=== PATIENT | male | born 1950 | race Caucasian/White ===

== ENCOUNTER → 2017-04-02 | Outpatient (CLI) | payer MEDICARE ==
--- NOTE | 2017-04-02 20:00 | CT ---
EXAMINATION TYPE: CT abdomen pelvis wo con DATE OF EXAM: 04/02/2017 COMPARISON: Previous study dated 02/12/2015 HISTORY: Follow-up for renal cancer. CT DLP: 1116.70 mGycm Automated exposure control for dose reduction was used. FINDINGS: There is minimal dependent atelectasis in the dependent portions of the lungs. There is no pleural or pericardial fluid. The heart is not enlarged. Within the abdomen, the liver is enlarged measuring 23 cm. The spleen and gallbladder appear normal. The right adrenal gland is normal. The left is absent. There is been a previous left nephrectomy. Nephrectomy bed is clean. There is no evidence of hydronephrosis or nephrolithiasis involving the right kidney. The pancreas is unremarkable. There is no significant retroperitoneal, iliac or inguinal adenopathy. The bladder is not distended. The prostate is mildly enlarged. There is no significant diverticular change and there is no radiographic evidence of diverticulitis. The appendix is normal. Small bowel caliber is normal. There is no free fluid and no free air. There is some atrophy of the left rectus muscle superiorly. It is more normal-appearing more inferior ly. There is diffuse degenerative disc disease as well as hypertrophic spondylosis within the lower dorsa l and upper lumbar spines. No bony destructive lesion is seen. IMPRESSION: 1. STATUS POST LEFT-SIDED NEPHRECTOMY AND ADRENALECTOMY. 2. HEPATOMEGALY. 3. DEGENERATIVE CHANGE WITHIN THE SPINE.
== END | disposition home or self-care (01) ==
LOC: RADCTMAIN 16:40
PROVIDERS: ATTEND Urology
DX: R16.0 Hepatomegaly, not elsewhere classified (principal); C64.2 Malignant neoplasm of left kidney, except renal pelvis; Z90.5 Acquired absence of kidney; E89.6 Postprocedural adrenocortical (-medullary) hypofunction
CPT/HCPCS: 36415; 74176; 82565; 84520

== ENCOUNTER 2017-12-01 06:31 | Day surgery (SDC) | payer MEDICARE ==
[2017-11-30 08:27] VITALS: BMI 33.6
[~2017-12-01 06:31] MED LIST: LIDOCAINE 1% 20 ML VIAL (10MG/ML) FOR IV START INTRADERMA PRN; MIDAZOLAM 2 MG/2 ML VIAL IV PRN
[2017-12-01 07:24] LABS: Glucose,Whole Blood 172 mg/dL (75-99)
[2017-12-01] MEDS: LACTATED RINGERS 1,000 ML IV SCH ×2 (07:24→07:56)
[2017-12-01 07:26] VITALS: TEMP 98.2
[2017-12-01] MEDS ORDERED: PROPOFOL 10 MG/ML 20 ML VIAL IV ONE (07:58)
[2017-12-01] MEDS ORDERED: LIDOCAINE 1% INJ 10MG/ML (20 ML MDV) ONE (07:58)
--- NOTE | 2017-12-01 08:37 | P.PCN ---
Date of Procedure: 12/01/17 Procedure(s) Performed: Procedure: Colonoscopy and polypectomy. Preoperative diagnosis screening for neoplasia, patient has history of polyps. Postoperative diagnosis: 1. Two polyps snared and retrieved by suction but no large polyps or cancer. 2. Diverticulosis with no evidence of acute diverticulitis or strictures. Preparation: HalfLytely prep. Sedation: Was provided by anesthesia. Brief clinical history: The patient is a 67-year-old male who is scheduled for this evaluation for screening for neoplasia because of history of adenomatous polyps. His last exam was in February 2014. He was recommended repeat exam in 3 years. At this time, he has no new abdominal symptoms, bleeding or anemia. He did develop some issues with bowel movements and diarrhea over the last year and he has responded to anti-spasmodics. Procedure: With the patient on his left lateral decubitus position and after informed consent and adequate sedation, the perianal area was inspected and it did not show any fissures or fistulas. There were no masses felt on digital rectal examination. The Olympus CFQ 160L video colonoscope was then inserted in the rectum in the usual fashion and advanced to the cecum. There was a polyp in the distal sigmoid and one in the descending colon each measuring between 1-1/2 cm which were snared and retrieved by suction but there were no large polyps or cancer. There was occasional small diverticular orifices seen in the sigmoid and few on the right side and around the hepatic flexure but there was no evidence of acute diverticulitis or strictures. I retroflexed the endoscope in the rectum before the endoscope was withdrawn. Low-grade internal hemorrhoids were noted with no evidence of bleeding. The patient tolerated the procedure well. Plan: The patient was reassured. Discussed dietary measures. He will follow up with you as planned and I recommended repeat exam in 5 years.
[2017-12-01 08:47] VITALS: BP 116/72; PULSE 73; RESP 18
== END 2017-12-01 09:23 | disposition home or self-care (01) ==
LOC: ORWHC2ENDO 06:31
DX: D12.4 Benign neoplasm of descending colon (principal); D12.5 Benign neoplasm of sigmoid colon; K57.30 Diverticulosis of large intestine without perforation or abscess without bleeding; K64.8 Other hemorrhoids; K58.9 Irritable bowel syndrome, unspecified; Z86.010 Personal history of colon polyps; I10 Essential (primary) hypertension; Z90.5 Acquired absence of kidney; Z85.528 Personal history of other malignant neoplasm of kidney; E78.5 Hyperlipidemia, unspecified; E13.42 Other specified diabetes mellitus with diabetic polyneuropathy; E88.1 Lipodystrophy, not elsewhere classified; Z79.84 Long term (current) use of oral hypoglycemic drugs; Z79.899 Other long term (current) drug therapy
CPT/HCPCS: 88305; 45385; J2001; J2704

== ENCOUNTER → 2018-04-06 | Outpatient (CLI) | payer MEDICARE ==
--- NOTE | 2018-04-06 12:43 | XR ---
EXAMINATION TYPE: XR chest 2V DATE OF EXAM: 04/06/2018 COMPARISON: CT abdomen pelvis dated 06/01/2011 HISTORY: Right posterior lower chest pain TECHNIQUE: Frontal and lateral views of the chest are obtained. FINDINGS: There is right hemidiaphragm elevation that is similar to the CT dated 06/01/2011 and sligh t tenting of the hemidiaphragms likely related to atelectasis. There is right hemithorax volume loss. Mild multilevel degenerative changes of the thoracic spine are seen. Cardiomediastinal silhouette is within normal limits. No focal consolidation, pleural effusion or pneumothorax. IMPRESSION: Chronic right hemidiaphragm elevation. Minimal bibasilar subsegmental atelectasis.
--- NOTE | 2018-04-06 12:46 | XR ---
EXAMINATION TYPE: XR lumbosacral spine min 4V DATE OF EXAM: 04/06/2018 CLINICAL HISTORY: Back pain TECHNIQUE: Frontal, lateral, and oblique images of the lumbar spine are obtained. COMPARISON: None FINDINGS: There are surgical clips along the left upper quadrant and mid abdomen possibly from prior left nephrectomy given the location. There are 5 lumbar type vertebral bodies identified. The lumbar spine shows satisfactory alignment w ithout evidence of acute fracture or dislocation. Vertebral body heights and disk space heights are w ithin normal limits. Facet arthropathy is seen at L3-L4, L4-5 and L5-S1 with at least mild neural for aminal narrowing at L3-L4 and L4-L5 on the right and at L4-5 on the left. The overlying soft tissue appears unremarkable. IMPRESSION: 1. No acute fracture or dislocation is seen in the lumbar spine. 2. Mild multilevel degenerative disc disease of the lumbar spine with radiographic bilateral neural f oraminal narrowing as described above.
[2018-04-06 21:41] LABS: Albumin 4.7 g/dL (3.80-4.90); Albumin/Globulin Ratio 2.94 (1.20-2.10); Anion Gap 10.4 mmol/L (4.00-12.00); Carbon Dioxide 23.6 mmol/L (21.6-31.8); Globulin 1.6 g/dL (2.1-3.7); Potassium 3.9 mmol/L (3.5-5.5); Total Bilirubin 0.6 mg/dL (0.3-1.2); Total Protein 6.3 g/dL (6.2-8.2)
== END ==
LOC: LABWHC1 11:43
PROVIDERS: ATTEND Urology
DX: M99.73 Connective tissue and disc stenosis of intervertebral foramina of lumbar region (principal); M51.36 Other intervertebral disc degeneration, lumbar region; J98.11 Atelectasis; C64.9 Malignant neoplasm of unspecified kidney, except renal pelvis
CPT/HCPCS: 36415; 71046; 72110; 80053

== ENCOUNTER → 2018-11-15 | Outpatient (CLI) | payer MEDICARE ==
[~2018-11-15] MED LIST changes: -LIDOCAINE 1% 20 ML VIAL (10MG/ML) FOR IV START INTRADERMA PRN; -MIDAZOLAM 2 MG/2 ML VIAL IV PRN; +REGADENOSON 0.4 MG/5 ML SYRINGE IV ONE
--- NOTE | 2018-11-15 13:09 | EST ---
EXERCISE STRESS AGE: 68 SEX: M HT: 69" WT: 228 PROTOCOL: Lexiscan Cardiolite Study HEART RATE REST: 74 BLOOD PRESSURE REST: 119/66 MAXIMUM HEART RATE ACHIEVED: 95 MAXIMUM BLOOD PRESSURE: 129/70 INDICATIONS: Atypical chest pain. CLINICAL INFORMATION: A Lexiscan nuclear study was performed, peak heart rate of 95 was achieved. Maximum blood pressure of 129/70 mmHg was noted. Resting EKG shows normal sinus rhythm with normal VA interval and QRS duration and normal ST-T waves. No ST-segment depression suggestive of ischemia is noted. Occasional PVCs are noted. FINAL IMPRESSION: There is no evidence of any ST-segment changes during Lexiscan injection. The results of the nuclear study will follow. MMODL / IJN: [id number] /
--- NOTE | 2018-11-15 15:59 | NM ---
EXAMINATION TYPE: NM stress lexiscan cardiolite DATE OF EXAM: 11/15/2018 COMPARISON: NONE HISTORY: Atypical chest pain TECHNIQUE: After the intravenous administration of 10.3 mCi Tc 99m Sestamibi - Cardiolite resting SP ECT images acquired 45 minutes post injection. The patient received 0.4mg Lexiscan, 26.3 mCi Tc 99m Sestamibi - Stress images obtained [address] injection FINDINGS: Review of stress and rest SPECT images demonstrates moderate defects of the septal and inferolateral sadler in the mid and basilar segments indicating reversible ischemia. Gated analysis shows suspected abnormal wall motion with very mild dyskinesis of the septal and inferior sadler. There is an estimate d left ventricular ejection fraction of 50 %. TID is calculated within normal limits at 1.03 IMPRESSION: 1. Findings indicating reversible ischemia in the distribution of the circumflex coronary artery and left anterior descending coronary artery. Finding was [facility] the [email or web address]:30 PM on 11/15/[address] Garcias however [employer] error precluded a complete dictation at that time.
== END | disposition home or self-care (01) ==
LOC: RADNMMAIN 07:42
PROVIDERS: ATTEND Family Medicine
DX: R07.89 Other chest pain (principal)
CPT/HCPCS: 93017; 78452; A9500; J2785

== ENCOUNTER → 2018-11-16 | Outpatient (CLI) | payer MEDICARE ==
[2018-11-16 12:10] LABS: Basophils % (A) 1 %; Eosinophils # (A) 0.3 k/uL (0-0.7); Eosinophils % (A) 4 %; HCT 42.1 % (39.0-53.0); HGB 14.1 gm/dL (13.0-17.5); Lymphocytes # (A) 2.1 k/uL (1.0-4.8); Lymphocytes % (A) 29 %; MCH 30.9 pg (25.0-35.0); MCHC 33.5 g/dL (31.0-37.0); MCV 92.3 fL (80.0-100.0); Mean Platelet Volume 7.6; Monocytes # (A) 0.3 k/uL (0-1.0); Monocytes % (A) 5 %; Neutrophils # (A) 4.4 k/uL (1.3-7.7); Neutrophils % (A) 60 %; Platelet Count 147 k/uL (150-450); RBC 4.57 m/uL (4.30-5.90); RDW 12.8 % (11.5-15.5); WBC 7.3 k/uL (3.8-10.6)
[2018-11-16 12:23] LABS: Magnesium 1.8 mg/dL (1.6-2.3); Potassium 4.5 mmol/L (3.5-5.1)
== END | disposition home or self-care (01) ==
LOC: LABPAT 11:31
PROVIDERS: ATTEND Internal Medicine Cardiovascular Disease
DX: Z01.812 Encounter for preprocedural laboratory examination (principal)
CPT/HCPCS: 80051; 82565; 82947; 83735; 84520; 85025

== ENCOUNTER 2018-11-26 06:34 | Day surgery (SDC) | payer MEDICARE ==
[~2018-11-26 06:34] MED LIST changes: +ALPRAZolam 0.25 MG TAB PO PRN; +ALPRAZolam 0.5 MG TAB PO PRN; +NITROGLYCERIN SL TABS 0.4 MG TAB SUBLINGUAL PRN; -REGADENOSON 0.4 MG/5 ML SYRINGE IV ONE; +SODIUM CHLORIDE 0.9% 1,000 ML in EMPTY BAG 1 BAG IV ONE
[2018-11-26] MEDS ORDERED: ASPIRIN 325 MG TAB PO ONE (07:00)
[2018-11-26] MEDS ORDERED: ATORVASTATIN 80 MG TAB PO ONE (07:00)
[2018-11-26 07:30] LABS: Glucose,Whole Blood 166 mg/dL (75-99)
[2018-11-26] MEDS ORDERED: SODIUM CHLORIDE 0.9% 1,000 ML IV ONE (07:34)
[2018-11-26] MEDS ORDERED: fentaNYL (PF) 50 MCG/ML 2 ML AMP IVP ONE (08:46)
[2018-11-26] MEDS: MIDAZOLAM (PF) 2 MG/2 ML VIAL IVP ONE ×2 (08:46→09:30)
[2018-11-26] MEDS ORDERED: LIDOCAINE 1% INJ 10MG/ML (20 ML MDV) SQ ONE (08:50)
[2018-11-26] MEDS: VERAPAMIL SYRINGE (5 MG/10 ML) INTRAARTER ONE ×2 (08:52→10:06)
[2018-11-26] MEDS ORDERED: HEPARIN SODIUM 1,000 UN/ML (10ML VL) IV ONE (08:54)
--- NOTE | 2018-11-26 09:27 | P.CARDCATH ---
Date of Procedure: 11/26/18 Preoperative Diagnosis: Exertional angina and positive stress test Postoperative Diagnosis: Critical lesion involving the mid LAD and the moderate to severe disease involving the diagonal Procedure(s) Performed: Left heart catheterization without left ventriculography Description of Procedure: HISTORY: This is 68-year-old gentleman with history of hypertension, hypercholesterolemia and also diabetes mellitus who was recently seen in the office for symptoms of of chest pain and positive stress test. Patient is advised to have a cardiac catheterization for definitive diagnosis. CONSENT:I have discussed the risks, benefits and alternative therapies for the above-mentioned procedure and for both sedation/analgesia as well as necessary blood product administration, if indicated, as they pertain to this patient. The patient has indicated understanding and acceptance of the risks and procedures discussed. 1 PROCEDURE: Patient was brought to the lab in a fasting state. Patient was given some IV sedation. The right groin is infiltrated with lidocaine and right femoral artery was entered using Seldinger technique. A 6-Jordanian catheter was left in place and selective coronary arteriography and left ventriculography was performed. Patient tolerated the procedure well. Femoral angiogram was performed and Angio-Seal was applied for hemostasis. No immediate complications were noted and patient was transferred to [facility] in a stable condition Conscious Sedation: Versed 1mg Fentanyl 50 g Duration 23minutes HEMODYNAMICS: The aortic pressure is 115/76. The left ventricle end-diastolic pressure is about 10-12. There was no gradient across the aortic valve SELECTIVE CORONARY ARTERIOGRAPHY: LEFT MAIN: Normal length and patent THE LEFT ANTERIOR DESCENDING CORONARY ARTERY:. This is a caliber vessel giving rise good-sized diagonal branch. The LAD has 95% stenosis involving the midportion. There is a diagonal branch prior to the lesion which also has about 70% proximal lesion THE LEFT CIRCUMFLEX AND IS CORONARY ARTERY: Nondominant vessel free of occlusive disease THE RIGHT CORONARY ARTERY: Is a dominant vessel and large in caliber and free of any significant occlusive disease LEFT VENTRICULOGRAPHY:. Not performed FINAL IMPRESSION:, Critical lesion involving mid LAD with a moderate to severe disease involving the diagonal PLAN: Stent placement of the LAD and possibly diagonal. Patient doesn't have only one kidney and probably would do the diagonal in a staged fashion PROGNOSIS: Fair with successful therapy
[2018-11-26] MEDS ORDERED: BIVALIRUDIN BOLUS 250 MG/50 ML IV ONE (09:44)
[2018-11-26] MEDS ORDERED: BIVALIRUDIN 250 MG in SODIUM CHLORIDE 0.9% 50 ML IV ONE (09:45)
[2018-11-26] MEDS ORDERED: CLOPIDOGREL 75 MG TAB PO ONE (09:52)
[2018-11-26] MEDS ORDERED: NITROGLYCERIN 1000MCG/10ML SYRINGE INTRACORON ONE (10:04)
[2018-11-26] MEDS ORDERED: IOPAMIDOL-370 125ML BTL INJ ONE (10:05)
[2018-11-26] MEDS ORDERED: NITROGLYCERIN SL TABS 0.4 MG TAB SUBLINGUAL PRN ×2 (10:14→10:16)
[2018-11-26] MEDS ORDERED: FAMOTIDINE 20 MG TAB PO PRN (10:14)
[2018-11-26] MEDS ORDERED: ZOLPIDEM 5 MG TAB PO PRN (10:16)
[2018-11-26] MEDS ORDERED: RX INFO: IV CONTRAST WAS GIVEN 1 EACH MISC MISCELLANE PRN (10:16)
[2018-11-26] MEDS ORDERED: ATROPINE SULFATE 0.1 MG/ML 10ML SYRINGE IV PRN (10:16)
[2018-11-26] MEDS ORDERED: MAG HYDROX/AL HYDROX/SIMETH 30 ML CUP PO PRN (10:16)
[2018-11-26] MEDS ORDERED: SODIUM CHLORIDE 0.9% 1,000 ML IV SCH (10:30)
--- NOTE | 2018-11-26 11:14 | PTCA ---
PERCUTANEOUSTRANS CORORONARY ANGIOGRAPHY DATE OF SERVICE: 11/26/2018 PERFORMING PHYSICIAN: Uzair Auguste MD. PROCEDURE PERFORMED: Successful stenting of the mid left anterior descending artery using 3.5 x 18 mm Xience ALYCIA which was post-dilated using 4 mm noncompliant balloon with an excellent angiographic results and reduction of stenosis from 99% to 0%. INDICATION: This is a 68-year-old gentleman who sees Dr. Kang in the office as an outpatient who was experiencing symptoms of chest discomfort and underwent myocardial perfusion imaging stress test and that revealed ischemia. He underwent a heart catheterization earlier today and that revealed critical mid LAD lesion. Because of that, a PCI of the LAD was advised. APPROACH: Right radial artery. COMPLICATION: None. LEVEL OF SEDATION: Moderate with sedation length of 25 minutes. PROCEDURE DESCRIPTION: Please refer to diagnostic heart catheterization was performed by Dr. Kang. Anticoagulation was initiated using Angiomax. The left main was engaged using JL4 guide. I did wire the LAD using a Whisper wire. I did balloon angioplasty using 2.5 x 12 mm balloon before I deployed 3.5 x 18 mm Xience ALYCIA where the stent was positioned under fluoroscopy guidance and deployed under 16 atmospheres for 20 seconds. I post- dilated the stent using 4 mm balloon. The final angiogram showed great results and the procedure was completed without any complication. POSTPROCEDURE MANAGEMENT: 1. Dual anti-platelet therapy. 2. Risk factors modifications. 3. Follow up with the patient. MMODL / IJN: [id number] /
--- NOTE | 2018-11-26 11:14 | LTR ---
Date of Service: 11/26/2018 RE: Wyatt Melissa Dear Dr. Dupree: Wyatt Susannacarlos alberto underwent successful stenting of the mid left anterior descending artery after a heart catheterization by Dr. Kang revealed critical disease involving the mid LAD. I want to thank you for allowing us to participate in his care and please do not hesitate to call if you have any question or concern. Sincerely, MD STEPHAN Goyal / CANDY: [id number] /
[2018-11-26 15:52] VITALS: BMI 33.2
[2018-11-26 16:55] LABS: Glucose,Whole Blood 136 mg/dL (75-99)
[2018-11-26] MEDS: INSULIN ASPART (NovoLOG) 100 UNIT/ML VIAL SQ SCH ×2 (17:00→21:49)
[2018-11-26] MEDS: ACETAMINOPHEN TAB 500 MG TAB PO SCH (20:31)
[2018-11-26] MEDS: DICYCLOMINE 20 MG TAB PO SCH (20:31)
[2018-11-26] MEDS: GABAPENTIN 100 MG CAP PO SCH (20:31)
[2018-11-26 20:55] LABS: Glucose,Whole Blood 140 mg/dL (75-99)
[2018-11-27 06:13] LABS: Glucose,Whole Blood 141 mg/dL (75-99)
[2018-11-27] MEDS: INSULIN ASPART (NovoLOG) 100 UNIT/ML VIAL SQ SCH ×2 (06:30→12:42)
[2018-11-27 06:39] LABS: Basophils % (A) 1 %; Eosinophils # (A) 0.3 k/uL (0-0.7); Eosinophils % (A) 4 %; HCT 39.9 % (39.0-53.0); HGB 13.4 gm/dL (13.0-17.5); Lymphocytes # (A) 2.1 k/uL (1.0-4.8); Lymphocytes % (A) 30 %; MCH 31.2 pg (25.0-35.0); MCHC 33.6 g/dL (31.0-37.0); MCV 92.7 fL (80.0-100.0); Mean Platelet Volume 6.8; Monocytes # (A) 0.3 k/uL (0-1.0); Monocytes % (A) 5 %; Neutrophils # (A) 4.2 k/uL (1.3-7.7); Neutrophils % (A) 59 %; Platelet Count 114 k/uL (150-450); RDW 12.7 % (11.5-15.5)
[2018-11-27 06:56] LABS: Calcium 9.3 mg/dL (8.4-10.2); Potassium 3.8 mmol/L (3.5-5.1)
[2018-11-27 08:08] VITALS: RESP 16
[2018-11-27] MEDS: ACETAMINOPHEN TAB 500 MG TAB PO SCH (08:46)
[2018-11-27] MEDS: PRAVASTATIN SODIUM 40 MG TAB PO SCH ×2 (08:48→08:52)
[2018-11-27] MEDS: DICYCLOMINE 20 MG TAB PO SCH (08:57)
[2018-11-27] MEDS: GABAPENTIN 100 MG CAP PO SCH (08:57)
[2018-11-27] MEDS ORDERED: ASCORBIC ACID 500 MG TAB PO SCH (09:00)
[2018-11-27] MEDS ORDERED: CLOPIDOGREL 75 MG TAB PO SCH (09:00)
[2018-11-27] MEDS ORDERED: CYANOCOBALAMIN 500 MCG TAB PO SCH (09:00)
[2018-11-27] MEDS ORDERED: CHOLECALCIFEROL 1,000 UNIT TAB PO SCH (09:00)
[2018-11-27] MEDS ORDERED: LISINOPRIL-HCTZ 20-12.5 MG 1 EACH TAB PO SCH (09:00)
[2018-11-27] MEDS ORDERED: ASPIRIN 81 MG PO SCH (09:00)
[2018-11-27] MEDS ORDERED: ISOSORBIDE MONONITRATE ER 30 MG TAB.ER.24H PO SCH (09:00)
[2018-11-27] MEDS ORDERED: ATENOLOL 50 MG TAB PO SCH (09:00)
[2018-11-27 10:38] VITALS: BP 135/73; PULSE 73; TEMP 98
--- NOTE | 2018-11-27 11:43 | P.DS ---
Providers Attending physician: Adelso Kang Consults: 11/26/18 10:16 Consult Physician Routine Consulting Provider: [facility] Consult Reason/Comments: Post Interventional patient Do you want consulting provider notified?: Already Contacted Primary care physician: Luis Fernando Phillip [facility] Course: Patient is doing well. He is sitting comfortably in a chair. His ablating in the hallways. His right hand circulation is normal. Right radial pulses post radial access for coronary angiography and coronary stenting is normal. Good bounding pulses No chest discomfort dizziness lightheadedness palpitations no shortness of breath On examination his blood pressures 130s over 73 mmHg pulse rate is in the 70s afebrile 98F Breath sounds are clear no rhonchi no crackles Heart sounds S1 and S2 normal no murmurs or gallops or rub Abdomen is soft nontender Extremities are warm no edema Impression Coronary artery disease status post coronary stenting Dyslipidemia Type 2 diabetes Hypertension Suggest Continue dual antiplatelet therapy Increase Pravachol to 80 mg by mouth daily Continue beta blockers and karly inhibitors May stop isosorbide Follow-up with Dr. Kang within week. You may go home today Plan - Discharge Summary Discharge Rx Participant: No New Discharge Prescriptions: New Clopidogrel [Plavix] 75 mg PO DAILY #90 tablet Pravastatin Sodium [Pravachol] 80 mg PO HS #90 tab Discontinued Pravastatin Sodium [Pravachol] 40 mg PO DAILY Isosorbide Mononitrate [Isosorbide Mononitrate ER] 30 mg PO DAILY No Action Albuterol Inhaler [Ventolin Hfa Inhaler] 1 - 2 puff INHALATION RT-Q6H PRN PRN Reason: Dyspnea metFORMIN HCL [Glucophage] 1,000 mg PO BID Gabapentin [Neurontin] 100 mg PO BID Dicyclomine [Bentyl] 20 mg PO BID Atenolol [Tenormin] 50 mg PO DAILY Aspirin 81 mg PO DAILY Cholecalciferol [Vitamin D3] 5,000 unit PO DAILY Ascorbic Acid [Vitamin C] 500 mg PO DAILY Cyanocobalamin (Vitamin B-12) [Vitamin B-12] 2,500 mcg PO DAILY Acetaminophen [Tylenol Arthritis] 1,300 mg PO BID Diphenox-Atrop 2.5-0.025 mg [Lomotil] 1 - 2 tab PO BID PRN PRN Reason: loose stools Lisinopril-Hctz 20-12.5 mg [Zestoretic 20-12.5] 1 tab PO DAILY Ranitidine HCl 150 mg PO BID PRN PRN Reason: reflux Nitroglycerin Sl Tabs [Nitrostat] 0.4 mg SUBLINGUAL Q5M PRN PRN Reason: Chest Pain Discharge Medication List Acetaminophen [Tylenol Arthritis] 1,300 mg PO BID 11/30/17 [History] Albuterol Inhaler [Ventolin Hfa Inhaler] 1 - 2 puff INHALATION RT-Q6H PRN 11/30/17 [History] Ascorbic Acid [Vitamin C] 500 mg PO DAILY 11/30/17 [History] Aspirin 81 mg PO DAILY 11/30/17 [History] Atenolol [Tenormin] 50 mg PO DAILY 11/30/17 [History] Cholecalciferol [Vitamin D3] 5,000 unit PO DAILY 11/30/17 [History] Cyanocobalamin (Vitamin B-12) [Vitamin B-12] 2,500 mcg PO DAILY 11/30/17 [History] Dicyclomine [Bentyl] 20 mg PO BID 11/30/17 [History] Gabapentin [Neurontin] 100 mg PO BID 11/30/17 [History] metFORMIN HCL [Glucophage] 1,000 mg PO BID 11/30/17 [History] Diphenox-Atrop 2.5-0.025 mg [Lomotil] 1 - 2 tab PO BID PRN 11/24/18 [History] Lisinopril-Hctz 20-12.5 mg [Zestoretic 20-12.5] 1 tab PO DAILY 11/24/18 [History] Nitroglycerin Sl Tabs [Nitrostat] 0.4 mg SUBLINGUAL Q5M PRN 11/24/18 [History] Ranitidine HCl 150 mg PO BID PRN 11/24/18 [History] Clopidogrel [Plavix] 75 mg PO DAILY #90 tablet 11/27/18 [Rx] Pravastatin Sodium [Pravachol] 80 mg PO HS #90 tab 11/27/18 [Rx] Follow up Appointment(s)/Referral(s): Adelso Kang MD [STAFF PHYSICIAN] - 1 Week (Follow Dr. Kang within one week. Medications include Plavix 75 mg by mouth daily, higher dose of pravastatin 80 mg by mouth daily, stop isosorbide oral)
[2018-11-27 12:26] LABS: Glucose,Whole Blood 174 mg/dL (75-99)
[2018-11-27] MEDS ORDERED: PRAVASTATIN SODIUM 40 MG TAB PO SCH (21:00)
== END 2018-11-27 13:28 | disposition home or self-care (01) ==
LOC: CATHCVL 06:34 → 3SCARD 10:07 → CATHCVL 11-27 13:28
PROVIDERS: ATTEND Internal Medicine Cardiovascular Disease
DX: I25.118 Atherosclerotic heart disease of native coronary artery with other forms of angina pectoris (principal); I10 Essential (primary) hypertension; E78.5 Hyperlipidemia, unspecified; E11.9 Type 2 diabetes mellitus without complications; Z79.82 Long term (current) use of aspirin; Z95.5 Presence of coronary angioplasty implant and graft; E78.00 Pure hypercholesterolemia, unspecified; R94.39 Abnormal result of other cardiovascular function study; Z79.84 Long term (current) use of oral hypoglycemic drugs; Z79.899 Other long term (current) drug therapy
CPT/HCPCS: 93458; 80048; 85025; C9600; C1769 ×2; C1887; C1725 ×2; C1874; C1894; J2001; J3010; J1644; J0583; Q9967; J2250

== ENCOUNTER → 2019-01-03 | Outpatient (CLI) | payer MEDICARE ==
[2019-01-03 17:21] LABS: ALT 25 U/L (10-49); AST 15 U/L (14-35); African American GFR (CKD) 72.6 (60.0-200.0); Albumin/Globulin Ratio 2.94 (1.60-3.17); Alkaline Phosphatase 61 U/L (41-126); BUN/Creat Ratio 15.83 Ratio (12.00-20.00); Calcium 9.8 mg/dL (8.7-10.3); Carbon Dioxide 27.4 mmol/L (21.6-31.8); Chloride 106 mmol/L (96-109); Cholesterol 129 mg/dL (0-200); Globulin 1.6 g/dL (1.6-3.3); Glucose 182 mg/dL (70-110); Potassium 4.7 mmol/L (3.5-5.5); Sodium 144 mmol/L (135-145); Total Bilirubin 0.8 mg/dL (0.2-1.2); Total Protein 6.3 g/dL (6.2-8.2)
== END | disposition home or self-care (01) ==
LOC: LABWHC1 09:22
PROVIDERS: ATTEND Internal Medicine Cardiovascular Disease
DX: I25.10 Atherosclerotic heart disease of native coronary artery without angina pectoris (principal); I10 Essential (primary) hypertension; E78.5 Hyperlipidemia, unspecified
CPT/HCPCS: 36415; 80053; 80061; 83721

== ENCOUNTER → 2019-04-12 | Outpatient (CLI) | payer MEDICARE ==
--- NOTE | 2019-04-12 12:26 | CT ---
EXAMINATION TYPE: CT abdomen pelvis wo con DATE OF EXAM: 04/12/2019 COMPARISON: 04/02/2017 HISTORY: 69-year-old male history of Renal cancer CT DLP: 1077.9 mGycm. Automated exposure control for dose reduction was used. TECHNIQUE: Contiguous axial scanning of the abdomen and pelvis without IV contrast. Coronal and sagit bety reconstructions performed. FINDINGS: Heart normal size without pericardial effusion. LAD calcification versus stent is now demonstrated. S trandy atelectasis or scarring in the lung bases without pleural effusion. Hepatomegaly at 21.3 cm stable improved from 23.0 cm, previously. Gallbladder, adrenal glands, spleen with inferior hilar splenule, and pancreas show no gross abnormal ity by noncontrast CT. A couple nonobstructing right renal calculi measuring 6 mm and 3 mm. Stable 1.7 cm exophytic cyst med ial midpole right kidney. Post surgical changes of left nephrectomy are demonstrated. There is a vague area 1 cm soft tissue no dularity in the nephrectomy bed. There is some strandy density in this region on the patient's 2017 p rior exam. No dilated small bowel, free fluid, or free air. No mesenteric or retroperitoneal lymphadenopathy. Oral contrast progressed to the rectum. No significant stool burden. No pericolonic inflammatory delatorre ge. Bladder is collapsed. Multiple pelvic lymph nodes. Prostate gland is 4.5 cm wide. No abnormal collect ion in the pelvis or pelvic lymphadenopathy. Bones: Degenerative changes of the hips. Focal sclerosis posterior left iliac bone is unchanged sugge sting a benign etiology. Degenerative changes left SI joint. Bilateral L5 pars defects. Multilevel mi ld degenerative disc disease throughout the visualized thoracic and lumbar spine. [facility] within the low er thoracic lung. No osseous destructive process. Fatty matrix hemangioma towards the right within th e L2 vertebral body. IMPRESSION: 1. Status post left nephrectomy. There is vague 1 cm area of nodularity within the nephrectomy bed. Some minimal strandy density was present in this location on the patient's prior 2017 exam. Some prog ressive postoperative scarring versus early local recurrence are both in the differential. Additional short interval follow-up recommended. 2. No other suspicious findings of metastatic disease in the abdomen or pelvis on this noncontrast s tudy. 3. Nonobstructive right renal calculi measuring up to 6 mm. Stable 1.7 cm right renal cyst.
== END | disposition home or self-care (01) ==
LOC: RADCTMAIN 10:30
PROVIDERS: ATTEND Urology
DX: N20.0 Calculus of kidney (principal); N28.1 Cyst of kidney, acquired; Z90.5 Acquired absence of kidney; Z77.120 Contact with and (suspected) exposure to mold (toxic); Z91.048 Other nonmedicinal substance allergy status; Z77.22 Contact with and (suspected) exposure to environmental tobacco smoke (acute) (chronic)
CPT/HCPCS: 74176

== ENCOUNTER 2019-04-17 19:22 | Inpatient (IN) | payer MEDICARE ==
[2019-04-17] MEDS ORDERED: ONDANSETRON 4 MG/2 ML VIAL IVP STA ×2 (20:00→21:04)
[2019-04-17] MEDS ORDERED: SODIUM CHLORIDE 0.9% 1,000 ML IV STA (20:00)
[2019-04-17] MEDS ORDERED: MORPHINE SULFATE 4 MG/ML SYRINGE IV STA (20:00)
[2019-04-17 20:20] LABS: Appearance,Urine Turbid (Clear); Bilirubin,Urine Negative (Negative); Blood,Urine Large (Negative); Color,Urine Light Red; Glucose,Urine (UA) 1+ (Negative); Ketones,Urine Negative (Negative); Leukocyte Esterase,Urine Negative (Negative); Mucus,Urine Rare /hpf; Nitrite,Urine Negative (Negative); PH, Urine 5.5 (5.0-8.0); Protein,Urine 1+ (Negative); RBC,Urine >182 /hpf (0-5); Specific Gravity,Urine 1.021 (1.001-1.035); Squamous Epithelial Cell,Urine 1 /hpf (0-4); Urobilinogen,Urine <2.0 mg/dL (<2.0)
[2019-04-17 20:31] LABS: Basophils % (A) 0 %; Eosinophils # (A) 0.4 k/uL (0-0.7); Eosinophils % (A) 4 %; HCT 42.6 % (39.0-53.0); HGB 14.9 gm/dL (13.0-17.5); Lymphocytes # (A) 1.4 k/uL (1.0-4.8); Lymphocytes % (A) 13 %; MCH 31.6 pg (25.0-35.0); MCHC 34.9 g/dL (31.0-37.0); MCV 90.5 fL (80.0-100.0); Mean Platelet Volume 6.2; Monocytes # (A) 0.5 k/uL (0-1.0); Monocytes % (A) 5 %; Neutrophils # (A) 8.4 k/uL (1.3-7.7); Neutrophils % (A) 77 %; Platelet Count 145 k/uL (150-450); RBC 4.71 m/uL (4.30-5.90); RDW 12.8 % (11.5-15.5); WBC 10.8 k/uL (3.8-10.6)
[2019-04-17 20:35] LABS: Albumin 4.7 g/dL (3.5-5.0); Calcium 9.8 mg/dL (8.4-10.2); INR 0.9 (<1.2); Partial Thromboplastin Time 22.6 sec (22.0-30.0); Potassium 4.4 mmol/L (3.5-5.1); Prothrombin Time 10.1 sec (9.0-12.0); Total Bilirubin 0.5 mg/dL (0.2-1.3); Total Protein 7.3 g/dL (6.3-8.2)
--- NOTE | 2019-04-17 20:36 | XR ---
EXAMINATION TYPE: XR KUB DATE OF EXAM: 04/17/2019 COMPARISON: 06/01/2011 HISTORY: Right lower quadrant pain TECHNIQUE: 2 views upright FINDINGS: There is no sign of intestinal obstruction or pneumoperitoneum. Fecal pattern is normal. Th ere are multiple surgical clips in the upper abdomen. There are no pathologic calcifications over the kidneys. IMPRESSION: Nonacute abdomen. No adverse change.
[2019-04-17] MEDS ORDERED: HYDROmorphone 1 MG/ML 1 ML SYRINGE IVP STA ×2 (21:04→22:35)
[2019-04-17] MEDS ORDERED: SODIUM CHLORIDE 0.9% 1,200 ML IV ONE (21:05)
--- NOTE | 2019-04-17 21:32 | CT ---
EXAMINATION TYPE: CT abdomen pelvis wo con DATE OF EXAM: 04/17/2019 COMPARISON: 04/12/2019 HISTORY: Right flank to right abdominal pain. CT DLP: 1255.5 mGycm Automated exposure control for dose reduction was used. TECHNIQUE: Helical acquisition of images was performed from the lung bases through the pelvis. FINDINGS: Lung bases are clear of consolidation. There is no pleural effusion. Heart size is fairly normal. The re is no pericardial effusion. Stomach is intact. Liver spleen pancreas gallbladder appear normal. Bi le ducts are not dilated. There is no adrenal mass. Left kidney is absent. There are clips from left nephrectomy. The right kid bushra shows hydronephrosis and mild hydroureter. There is 2 mm calculus lateral right kidney. There is 3 mm calculus lower pole right kidney. There is a 3 mm calculus in the proximal right ureter. There i s no retroperitoneal adenopathy. Bladder distends smoothly. There is no inguinal hernia. There is no free fluid in the pelvis. The joann endix is posterior and appears normal. There is no mesenteric edema. There is no ascites or free air. There is mild fat stranding around the right kidney. There is no sign of a bowel obstruction. LUMBAR VERTEBRA APPEAR INTACT. BONY PELVIS IS INTACT. IMPRESSION: Obstructing small calculus in the proximal right ureter with right-sided hydronephrosis. Right side p erinephric and periureteral edema. Obstruction appears new compared to last exam. Small right renal calculi.
--- NOTE | 2019-04-17 22:38 | ED ---
Abdominal Pain HPI - General Chief Complaint: Abdominal Pain Stated Complaint: Side pain Time Seen by Provider: 04/17/19 19:35 Source: patient Mode of arrival: ambulatory Limitations: no limitations - History of Present Illness Initial Comments: The patient is a 69-year-old male with past medical history of renal cancer, hypertension and hyperlipidemia who presents emergency room with complaint of right flank pain. The patient does have a history of kidney cancer and had a left nephrectomy. He sees Dr. Garcia in office. He saw him last week and did have a repeat CT of his abdomen performed for surveillance. He is unsure of the test results. States that approximately 3 hours prior to hospital arrival he had sudden onset of right-sided flank pain which radiates around to his right groin. It started while he was sitting on the toilet having a bowel movement. States that it brought him to his knees. He did have multiple episodes of vomiting due to the pain. He does have a history of kidney stones however states this feels different. Denies any hematuria or dysuria. No increased frequency of voiding. Denies any abdominal trauma. No pain with palpation. Denies constipation, diarrhea, melanotic stools or hematochezia. No fevers or chills. Denies any chest pain or shortness of breath. Denies urinary retention. Denies any midline back pain. No numbness or tingling in his lower extremities. Denies any unilateral numbness or weakness There are no other alleviating, precipitating or modifying factors - Related Data Home Medications Medication Instructions Recorded Confirmed Acetaminophen [Tylenol Arthritis] 1,300 mg PO BID 11/30/17 04/18/19 Albuterol Inhaler [Ventolin Hfa 1 - 2 puff INHALATION RT-Q6H PRN 11/30/17 04/18/19 Inhaler] Ascorbic Acid [Vitamin C] 500 mg PO DAILY 11/30/17 04/18/19 Aspirin 81 mg PO HS 11/30/17 04/18/19 Atenolol [Tenormin] 50 mg PO DAILY 11/30/17 04/18/19 Cholecalciferol [Vitamin D3] 5,000 unit PO DAILY 11/30/17 04/18/19 Cyanocobalamin (Vitamin B-12) 2,500 mcg PO DAILY 11/30/17 04/18/19 [Vitamin B-12] Dicyclomine [Bentyl] 20 mg PO BID 11/30/17 04/18/19 Gabapentin [Neurontin] 100 mg PO TID 11/30/17 04/18/19 Diphenox-Atrop 2.5-0.025 mg 1 - 2 tab PO BID PRN 11/24/18 04/18/19 [Lomotil] Lisinopril-Hctz 20-12.5 mg 1 tab PO DAILY 11/24/18 04/18/19 [Zestoretic 20-12.5] Nitroglycerin Sl Tabs [Nitrostat] 0.4 mg SUBLINGUAL Q5M PRN 11/24/18 04/18/19 Ranitidine HCl 150 mg PO BID 11/24/18 04/18/19 Hydrocortisone Cream 1 applic TOPICAL BID PRN 04/18/19 04/18/19 [Hydrocortisone 2.5% Cream] Psyllium Husk [Metamucil] 0.4 gm PO DAILY 04/18/19 04/18/19 metFORMIN HCL [metFORMIN HCL ER] 1,000 mg PO BID-W/MEALS 04/18/19 04/18/19 traMADol HCL [Ultram] 25 - 50 mg PO Q6HR PRN 04/18/19 04/18/19 Previous Rx's Medication Instructions Recorded Clopidogrel [Plavix] 75 mg PO DAILY #90 tablet 11/27/18 Pravastatin Sodium [Pravachol] 80 mg PO HS #90 tab 11/27/18 Allergies Allergy/AdvReac Type Severity Reaction Status Date / Time No Known Allergies Allergy Verified 04/18/19 11:25 Review of Systems ROS Statement: Those systems with pertinent positive or pertinent negative responses have been documented in the HPI. ROS Other: All systems not noted in ROS Statement are negative. Past Medical History Past Medical History: Asthma, Coronary Artery Disease (CAD), Cancer, Diabetes Mellitus, GERD/Reflux, Hyperlipidemia, Hypertension, Skin Disorder Additional Past Medical History / Comment(s): See Dr Kang's H&P,IBS, hx. kidney cancer 2014, hx. colon polyps, lipodystrophy,roscea History of Any Multi-Drug Resistant Organisms: None Reported Past Surgical History: Heart Catheterization With Stent Additional Past Surgical History / Comment(s): left nephrectomy, colonoscopy Past Anesthesia/Blood Transfusion Reactions: No Reported Reaction Additional Past Anesthesia/Blood Transfusion Reaction / Comment(s): no hx blood transfusion Past Psychological History: No Psychological Hx Reported Smoking Status: Never smoker Past Alcohol Use History: Rare Past Drug Use History: None Reported - Past Family History Father Family Medical History: Cancer Additional Family Medical History / Comment(s): colon cancer Mother Family Medical History: Cancer Additional Family Medical History / Comment(s): cervical General Exam Limitations: no limitations General appearance: alert, in no apparent distress Head exam: Present: atraumatic, normocephalic, normal inspection Eye exam: Present: normal appearance, PERRL, EOMI. Absent: scleral icterus, conjunctival injection, periorbital swelling ENT exam: Present: normal exam, mucous membranes moist Neck exam: Present: normal inspection. Absent: tenderness, meningismus, lymphadenopathy Respiratory exam: Present: normal lung sounds bilaterally. Absent: respiratory distress, wheezes, rales, rhonchi, stridor Cardiovascular Exam: Present: regular rate, normal rhythm, normal heart sounds. Absent: systolic murmur, diastolic murmur, rubs, gallop, clicks GI/Abdominal exam: Present: soft, normal bowel sounds. Absent: distended, tenderness, guarding, rebound, rigid Extremities exam: Present: normal inspection, full ROM, normal capillary refill. Absent: tenderness, pedal edema, joint swelling, calf tenderness Back exam: Present: normal inspection Neurological exam: Present: alert, oriented X3, CN II-XII intact Psychiatric exam: Present: normal affect, normal mood Skin exam: Present: warm, dry, intact, normal color. Absent: rash Course Vital Signs 04/17/19 04/17/19 04/17/19 19:33 19:34 20:00 Temperature 98 F Pulse Rate 76 Respiratory 18 Rate Blood Pressure 147/88 147/88 O2 Sat by Pulse 94 L 95 94 L Oximetry 04/17/19 04/17/19 04/17/19 20:30 21:00 23:28 Temperature Pulse Rate 87 Respiratory 16 Rate Blood Pressure 143/84 135/78 147/91 O2 Sat by Pulse 93 L 91 L 100 Oximetry Medical Decision Making - Medical Decision Making Upon arrival the patient was placed into room 8. A thorough history of physical exam is performed. The patient looks extremely uncomfortable upon presentation. Because of this peripheral IV is established the patient is given 4 mg morp alireza for pain control and 4 mg of Zofran for nausea. Recommend laboratory studies, urinalysis and a CT of the patient's abdomen and pelvis. I did perform a KUB as the patient did have a 6 mm stone sitting on his most recent CT. KUB demonstrates no acute findings therefore we do proceed with the CT of the abdomen and pelvis. It demonstrates a 3 mm obstructing proximal right ureteral calculus with right-sided hydronephrosis. Right-sided perinephric and periureteral edema. Small right renal calculus. Laboratory studies demonstrate a WBC of 10.8. Platelets 145. Creatinine is 1.96 which is elevated from the patient's previous value of 1.2. LA is 3.1. Glucose 229. Urinalysis shows 1+ protein, 1+ glucose, large blood, greater than 182 red blood cells, 7 white blood cells and rare mucous. 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 Ruelas who accepted admission for the patient. He requested to make him nothing by mouth after midnight and given a gram of Rocephin. These orders are placed. The patient was transported to the floor in stable condition - Lab Data Result diagrams: 04/18/19 04:18 04/18/19 04:18 Lab Results 04/17/19 04/17/19 04/17/19 Range/Units 20:00 20:00 20:00 WBC 10.8 H (3.8-10.6) k/uL RBC 4.71 (4.30-5.90) m/uL Hgb 14.9 (13.0-17.5) gm/dL Hct 42.6 (39.0-53.0) % MCV 90.5 (80.0-100.0) fL MCH 31.6 (25.0-35.0) pg MCHC 34.9 (31.0-37.0) g/dL RDW 12.8 (11.5-15.5) % Plt Count 145 L (150-450) k/uL Neutrophils % 77 % Lymphocytes % 13 % Monocytes % 5 % Eosinophils % 4 % Basophils % 0 % Neutrophils # 8.4 H (1.3-7.7) k/uL Lymphocytes # 1.4 (1.0-4.8) k/uL Monocytes # 0.5 (0-1.0) k/uL Eosinophils # 0.4 (0-0.7) k/uL Basophils # 0.0 (0-0.2) k/uL PT (9.0-12.0) sec INR (<1.2) APTT (22.0-30.0) sec Sodium 142 (137-145) mmol/L Potassium 4.4 (3.5-5.1) mmol/L Chloride 107 (98-107) mmol/L Carbon Dioxide 22 (22-30) mmol/L Anion Gap 13 mmol/L BUN 30 H (9-20) mg/dL Creatinine 1.96 H (0.66-1.25) mg/dL Est GFR (CKD-EPI)AfAm 40 (>60 ml/min/1.73 sqM) Est GFR (CKD-EPI)NonAf 35 (>60 ml/min/1.73 sqM) Glucose 229 H (74-99) mg/dL Lactic Ac Sepsis Rflx Plasma Lactic Acid Armando 3.1 H* (0.7-2.0) mmol/L Calcium 9.8 (8.4-10.2) mg/dL Total Bilirubin 0.5 (0.2-1.3) mg/dL AST 17 (17-59) U/L ALT 21 (21-72) U/L Alkaline Phosphatase 62 (38-126) U/L Total Protein 7.3 (6.3-8.2) g/dL Albumin 4.7 (3.5-5.0) g/dL Lipase 97 (23-300) U/L Urine Color Urine Appearance (Clear) Urine pH (5.0-8.0) Ur Specific [place] (1.001-1.035) Urine Protein (Negative) Urine Glucose (UA) (Negative) Urine Ketones (Negative) Urine Blood (Negative) Urine Nitrite (Negative) Urine Bilirubin (Negative) Urine Urobilinogen (<2.0) mg/dL Ur Leukocyte Esterase (Negative) Urine RBC (0-5) /hpf Urine WBC (0-5) /hpf Ur Squamous Epith Cells (0-4) /hpf Urine Mucus (None) /hpf 04/17/19 04/17/19 04/17/19 Range/Units 20:00 20:00 20:36 WBC (3.8-10.6) k/uL RBC (4.30-5.90) m/uL Hgb (13.0-17.5) gm/dL Hct (39.0-53.0) % MCV (80.0-100.0) fL MCH (25.0-35.0) pg MCHC (31.0-37.0) g/dL RDW (11.5-15.5) % Plt Count (150-450) k/uL Neutrophils % % Lymphocytes % % Monocytes % % Eosinophils % % Basophils % % Neutrophils # (1.3-7.7) k/uL Lymphocytes # (1.0-4.8) k/uL Monocytes # (0-1.0) k/uL Eosinophils # (0-0.7) k/uL Basophils # (0-0.2) k/uL PT 10.1 (9.0-12.0) sec INR 0.9 (<1.2) APTT 22.6 (22.0-30.0) sec Sodium (137-145) mmol/L Potassium (3.5-5.1) mmol/L Chloride (98-107) mmol/L Carbon Dioxide (22-30) mmol/L Anion Gap mmol/L BUN (9-20) mg/dL Creatinine (0.66-1.25) mg/dL Est GFR (CKD-EPI)AfAm (>60 ml/min/1.73 sqM) Est GFR (CKD-EPI)NonAf (>60 ml/min/1.73 sqM) Glucose (74-99) mg/dL Lactic Ac Sepsis Rflx Y Plasma Lactic Acid Armando (0.7-2.0) mmol/L Calcium (8.4-10.2) mg/dL Total Bilirubin (0.2-1.3) mg/dL AST (17-59) U/L ALT (21-72) U/L Alkaline Phosphatase (38-126) U/L Total Protein (6.3-8.2) g/dL Albumin (3.5-5.0) g/dL Lipase (23-300) U/L Urine Color Light Red Urine Appearance Turbid (Clear) Urine pH 5.5 (5.0-8.0) Ur Specific [place] 1.021 (1.001-1.035) Urine Protein 1+ H (Negative) Urine Glucose (UA) 1+ H (Negative) Urine Ketones Negative (Negative) Urine Blood Large H (Negative) Urine Nitrite Negative (Negative) Urine Bilirubin Negative (Negative) Urine Urobilinogen <2.0 (<2.0) mg/dL Ur Leukocyte Esterase Negative (Negative) Urine RBC >182 H (0-5) /hpf Urine WBC 7 H (0-5) /hpf Ur Squamous Epith Cells 1 (0-4) /hpf Urine Mucus Rare H (None) /hpf - EKG Data EKG Comments: EKG demonstrates a sinus rhythm with significant baseline artifact. Fatigued. 86. NE interval 206. QRS E4. QTC of 421. No acute ST segment elevations or depressions. Inverted T-wave in lead 3 Disposition Clinical Impression: Abdominal pain, Right ureteral calculus Disposition: ADMITTED IP TO THIS [facility] Condition: Good Is patient prescribed a controlled substance at d/c from ED?: No Decision to Admit Reason: Admit from EC Decision Date: 04/17/19 Decision Time: 22:37
[2019-04-17] MEDS ORDERED: cefTRIAXone IN SWFI 1,000 MG/10 ML SYRINGE IVP STA (23:00)
[2019-04-17] MEDS ORDERED: NALOXONE 0.4 MG/ML 1 ML VIAL IV PRN (23:01)
[2019-04-17] MEDS ORDERED: ONDANSETRON 4 MG/2 ML VIAL IVP PRN (23:01)
[2019-04-18] MEDS ORDERED: HYDROmorphone 2 MG TAB PO PRN
[2019-04-18] MEDS: SODIUM CHLORIDE 0.9% 1,000 ML IV SCH ×2 (00:47→08:39)
[2019-04-18] MEDS ORDERED: HYDROcodone/APAP 5-325MG 1 EACH TAB PO PRN (03:15)
[2019-04-18] MEDS: HYDROmorphone 1 MG/ML 1 ML SYRINGE IVP PRN ×3 (03:24→10:32)
[2019-04-18 04:44] LABS: Basophils % (A) 0 %; Eosinophils % (A) 0 %; HCT 40.5 % (39.0-53.0); HGB 13.7 gm/dL (13.0-17.5); Lymphocytes # (A) 1.2 k/uL (1.0-4.8); Lymphocytes % (A) 13 %; MCH 31.4 pg (25.0-35.0); MCHC 33.9 g/dL (31.0-37.0); MCV 92.5 fL (80.0-100.0); Monocytes # (A) 0.6 k/uL (0-1.0); Monocytes % (A) 7 %; Neutrophils # (A) 7.8 k/uL (1.3-7.7); Neutrophils % (A) 79 %; Platelet Count 136 k/uL (150-450); RBC 4.38 m/uL (4.30-5.90); RDW 12.7 % (11.5-15.5); WBC 9.8 k/uL (3.8-10.6)
[2019-04-18 04:45] LABS: Calcium 8.8 mg/dL (8.4-10.2); Potassium 5.2 mmol/L (3.5-5.1)
[2019-04-18] MEDS ORDERED: ALBUTEROL NEBULIZED 2.5 MG/3 ML INHALATION PRN (08:22)
[2019-04-18] MEDS ORDERED: ATENOLOL 50 MG TAB PO SCH (09:00)
[2019-04-18] MEDS ORDERED: SODIUM CHLORIDE 0.9% 1,000 ML IV ONE (11:30)
[2019-04-18 11:32] VITALS: RESP 16; TEMP 99.4
[2019-04-18 11:59] LABS: Glucose,Whole Blood 141 mg/dL (75-99)
[2019-04-18] MEDS ORDERED: INSULIN ASPART (NovoLOG) 100 UNIT/ML VIAL SQ SCH (12:30)
--- NOTE | 2019-04-18 12:30 | P.GSHP ---
History of Present Illness H&P Date: 04/18/19 Chief Complaint: right ureteral calculi Mr. pierson is a 69-year-old male with history of solitary kidney, he has history of left nephrectomy secondary to renal cell carcinoma. He presented to the ED with right-sided flank pain, that is associated with nausea and vomiting. Denies any urinary symptoms or any fever/chills. He underwent a CT which showed a through 3 mm right proximal stone with hydronephrosis. He has hx o recurrent renal calculi. - Constitutional Constitutional: Denies chills, Denies fever - Cardiovascular Cardiovascular: Denies chest pain, Denies dyspnea on exertion - Respiratory Respiratory: Denies cough, Denies dyspnea - Gastrointestinal Gastrointestinal: Reports nausea, Reports vomiting, Denies abdominal pain - Genitourinary (Female) Genitourinary: Reports flank pain, Reports kidney stones, Denies dysuria - Genitourinary (Male) Genitourinary: Reports flank pain, Reports kidney stones, Denies dysuria - Neurological Neurological: Denies confusion, Denies weakness Past Medical History Past Medical History: Asthma, Coronary Artery Disease (CAD), Cancer, Diabetes Mellitus, GERD/Reflux, Hyperlipidemia, Hypertension, Skin Disorder Additional Past Medical History / Comment(s): See Dr Kang's H&P,IBS, hx. kidney cancer 2013, hx. colon polyps, lipodystrophy,roscea History of Any Multi-Drug Resistant Organisms: None Reported Past Surgical History: Heart Catheterization With Stent Additional Past Surgical History / Comment(s): left nephrectomy, colonoscopy Past Anesthesia/Blood Transfusion Reactions: No Reported Reaction Additional Past Anesthesia/Blood Transfusion Reaction / Comment(s): no hx blood transfusion Past Psychological History: No Psychological Hx Reported Smoking Status: Never smoker Past Alcohol Use History: Rare Past Drug Use History: None Reported - Past Family History Father Family Medical History: Cancer Additional Family Medical History / Comment(s): colon cancer Mother Family Medical History: Cancer Additional Family Medical History / Comment(s): cervical Medications and Allergies Home Medications Medication Instructions Recorded Confirmed Type Acetaminophen [Tylenol Arthritis] 1,300 mg PO BID 11/30/17 04/18/19 History Albuterol Inhaler [Ventolin Hfa 1 - 2 puff INHALATION RT-Q6H PRN 11/30/17 04/18/19 History Inhaler] Ascorbic Acid [Vitamin C] 500 mg PO DAILY 11/30/17 04/18/19 History Aspirin 81 mg PO HS 11/30/17 04/18/19 History Atenolol [Tenormin] 50 mg PO DAILY 11/30/17 04/18/19 History Cholecalciferol [Vitamin D3] 5,000 unit PO DAILY 11/30/17 04/18/19 History Cyanocobalamin (Vitamin B-12) 2,500 mcg PO DAILY 11/30/17 04/18/19 History [Vitamin B-12] Dicyclomine [Bentyl] 20 mg PO BID 11/30/17 04/18/19 History Gabapentin [Neurontin] 100 mg PO TID 11/30/17 04/18/19 History Diphenox-Atrop 2.5-0.025 mg 1 - 2 tab PO BID PRN 11/24/18 04/18/19 History [Lomotil] Lisinopril-Hctz 20-12.5 mg 1 tab PO DAILY 11/24/18 04/18/19 History [Zestoretic 20-12.5] Nitroglycerin Sl Tabs [Nitrostat] 0.4 mg SUBLINGUAL Q5M PRN 11/24/18 04/18/19 History Ranitidine HCl 150 mg PO BID 11/24/18 04/18/19 History Clopidogrel [Plavix] 75 mg PO DAILY #90 tablet 11/27/18 04/18/19 Rx Pravastatin Sodium [Pravachol] 80 mg PO HS #90 tab 11/27/18 04/18/19 Rx Hydrocortisone Cream 1 applic TOPICAL BID PRN 04/18/19 04/18/19 History [Hydrocortisone 2.5% Cream] Psyllium Husk [Metamucil] 0.4 gm PO DAILY 04/18/19 04/18/19 History metFORMIN HCL [metFORMIN HCL ER] 1,000 mg PO BID-W/MEALS 04/18/19 04/18/19 History traMADol HCL [Ultram] 25 - 50 mg PO Q6HR PRN 04/18/19 04/18/19 History Allergies Allergy/AdvReac Type Severity Reaction Status Date / Time No Known Allergies Allergy Verified 04/18/19 11:25 Surgical - Exam Vital Signs Pulse Ox 94 L 04/17/19 19:33 - General well developed, well nourished, no distress - ENT normal mucosa, no hearing loss - Respiratory normal expansion, normal respiratory effort - Abdomen Abdomen: soft, non tender, no distended - Psychiatric oriented to time, oriented to person, oriented to place, speech is normal Results - Labs 04/18/19 04:18 04/18/19 04:18 Abnormal Lab Results - Last 24 Hours (Table) 04/17/19 04/17/19 04/17/19 Range/Units 20:00 20:00 20:00 WBC 10.8 H (3.8-10.6) k/uL Plt Count 145 L (150-450) k/uL Neutrophils # 8.4 H (1.3-7.7) k/uL BUN 30 H (9-20) mg/dL Creatinine 1.96 H (0.66-1.25) mg/dL Glucose 229 H (74-99) mg/dL Plasma Lactic Acid Armando 3.1 H* (0.7-2.0) mmol/L Urine Protein (Negative) Urine Glucose (UA) (Negative) Urine Blood (Negative) Urine RBC (0-5) /hpf Urine WBC (0-5) /hpf Urine Mucus (None) /hpf 04/17/19 Range/Units 20:00 WBC (3.8-10.6) k/uL Plt Count (150-450) k/uL Neutrophils # (1.3-7.7) k/uL BUN (9-20) mg/dL Creatinine (0.66-1.25) mg/dL Glucose (74-99) mg/dL Plasma Lactic Acid Armando (0.7-2.0) mmol/L Urine Protein 1+ H (Negative) Urine Glucose (UA) 1+ H (Negative) Urine Blood Large H (Negative) Urine RBC >182 H (0-5) /hpf Urine WBC 7 H (0-5) /hpf Urine Mucus Rare H (None) /hpf Diabetes panel 04/17/19 Range/Units 20:00 Sodium 142 (137-145) mmol/L Potassium 4.4 (3.5-5.1) mmol/L Chloride 107 (98-107) mmol/L Carbon Dioxide 22 (22-30) mmol/L BUN 30 H (9-20) mg/dL Creatinine 1.96 H (0.66-1.25) mg/dL Glucose 229 H (74-99) mg/dL Calcium 9.8 (8.4-10.2) mg/dL AST 17 (17-59) U/L ALT 21 (21-72) U/L Alkaline Phosphatase 62 (38-126) U/L Total Protein 7.3 (6.3-8.2) g/dL Albumin 4.7 (3.5-5.0) g/dL Calcium panel 04/17/19 Range/Units 20:00 Calcium 9.8 (8.4-10.2) mg/dL Albumin 4.7 (3.5-5.0) g/dL Pituitary panel 04/17/19 Range/Units 20:00 Sodium 142 (137-145) mmol/L Potassium 4.4 (3.5-5.1) mmol/L Chloride 107 (98-107) mmol/L Carbon Dioxide 22 (22-30) mmol/L BUN 30 H (9-20) mg/dL Creatinine 1.96 H (0.66-1.25) mg/dL Glucose 229 H (74-99) mg/dL Calcium 9.8 (8.4-10.2) mg/dL Adrenal panel 04/17/19 Range/Units 20:00 Sodium 142 (137-145) mmol/L Potassium 4.4 (3.5-5.1) mmol/L Chloride 107 (98-107) mmol/L Carbon Dioxide 22 (22-30) mmol/L BUN 30 H (9-20) mg/dL Creatinine 1.96 H (0.66-1.25) mg/dL Glucose 229 H (74-99) mg/dL Calcium 9.8 (8.4-10.2) mg/dL Total Bilirubin 0.5 (0.2-1.3) mg/dL AST 17 (17-59) U/L ALT 21 (21-72) U/L Alkaline Phosphatase 62 (38-126) U/L Total Protein 7.3 (6.3-8.2) g/dL Albumin 4.7 (3.5-5.0) g/dL - Imaging CT scan - abdomen: image reviewed (3 mm right proximal stone with right mild hydronephrosis) Assessment and Plan Assessment: 69-year-old male with history of solitary kidney, presented with right-sided flank pain. CT showed a 3 mm right proximal stone with mild hydronephrosis. His creat up to 2.75 from baseline of 1.4 Plan: -Keep NPO -UA/Urine Culture -OR for cystoscopy right-sided ureteroscopy, holmium laser lithotripsy stone basketing and stent placement
[2019-04-18] MEDS ORDERED: PROPOFOL 10 MG/ML 20 ML VIAL IV ONE (12:34)
[2019-04-18] MEDS ORDERED: GLYCOPYRROLATE 0.2 MG/ML 2 ML VIAL ONE (12:34)
[2019-04-18] MEDS ORDERED: LIDOCAINE 1% INJ 10MG/ML (20 ML MDV) ONE (12:34)
[2019-04-18] MEDS ORDERED: ROCURONIUM BROMIDE 10 MG/ML 10 ML VIAL IV ONE (12:34)
[2019-04-18] MEDS ORDERED: SUCCINYLCHOLINE CHLORIDE 100 MG/5 ML SYR IV ONE (12:34)
[2019-04-18] MEDS ORDERED: NEOSTIGMINE 1 MG/ML 10 ML VIAL ONE (12:34)
[2019-04-18] MEDS ORDERED: MIDAZOLAM 2 MG/2 ML VIAL ONE (12:34)
[2019-04-18] MEDS ORDERED: fentaNYL (PF) 50 MCG/ML 2 ML AMP ONE (12:34)
[2019-04-18] MEDS ORDERED: SODIUM CHLORIDE 0.9% 100 ML with ceFAZolin 2,000 MG IV ONE ×2 (12:53)
--- NOTE | 2019-04-18 13:17 | P.OP ---
Date of Procedure: 04/18/19 Preoperative Diagnosis: Right ureteral stone and solitary kidney with acute renal failure Postoperative Diagnosis: Same Procedure(s) Performed: Cystoscopy, placement of right ureteral stent 6 x 26 Anesthesia: REINA Surgeon: Raffaele Orr Pathology: none sent Condition: stable Disposition: PACU Indications for Procedure: The patient is 69. He is several years status post left nephrectomy. He has a history kidney stones. Over the weekend the large a large stone in the mid ureter. His creatinine jumped to 2.9. He is having pain. He comes for cystoscopy possible stone manipulation probable stent placement to relieve the obstruction and renal failure Description of Procedure: The patient was brought to the operating suite. He is given a general endotracheal anesthesia. I cannot see the stone obviously on fluoroscopy. He is prepped and draped sterilely. Cystoscopy Foroblique lens and 22-Amharic sheath identifies normal urethra. The prostate is not obstructing. The bladder wall is unremarkable. There's nay debris in the bladder. An 035 wires passed up the ureter and over the SI joint there is marked obstruction and have a difficult time minimum eventually able to pass a wire by the stone. Due to the significant impaction a solitary kidney my plan is to place a double-J catheter to relieve the obstruction and renal failure . At a second sitting I'll do stone and stent removal. Thus over the wires passed a 6 x 26 double-J catheter that coils in the renal pelvis the bladder the bladder strain the patient's awake and returned recovery in good condition. He tolerated procedure well. He'll be discharged home later today. A follow-up in the office next week and we'll set him up for stone and stent removal.
--- NOTE | 2019-04-18 13:18 | P.DS ---
Providers Date of admission: 04/17/19 23:03 Attending physician: Vu Ruelas MD Consults: 04/18/19 08:27 Consult Physician Routine Consulting Provider: [place] Consult Reason/Comments: medical management Do you want consulting provider notified?: Yes Primary care physician: Luis Fernando Dupree [facility] Course: The patient was admitted to the hospital yesterday with an obstructing right ureteral stone and a solitary kidney with an elevated creatinine at 2.9. He has had pain for a couple days. Today he underwent cystoscopy and emergent placement of a stent. The stone was quite impacted there for stone manipulation was not done. Home later today in good condition. He'll follow-up in the office in one week. We'll set him up for cystoscopy, stone and stent removal at a later date. Patient Condition at Discharge: Good Plan - Discharge Summary Discharge Rx Participant: No New Discharge Prescriptions: No Action Albuterol Inhaler [Ventolin Hfa Inhaler] 1 - 2 puff INHALATION RT-Q6H PRN PRN Reason: Dyspnea Gabapentin [Neurontin] 100 mg PO TID Dicyclomine [Bentyl] 20 mg PO BID Atenolol [Tenormin] 50 mg PO DAILY Aspirin 81 mg PO HS Cholecalciferol [Vitamin D3] 5,000 unit PO DAILY Ascorbic Acid [Vitamin C] 500 mg PO DAILY Cyanocobalamin (Vitamin B-12) [Vitamin B-12] 2,500 mcg PO DAILY Acetaminophen [Tylenol Arthritis] 1,300 mg PO BID Diphenox-Atrop 2.5-0.025 mg [Lomotil] 1 - 2 tab PO BID PRN PRN Reason: loose stools Lisinopril-Hctz 20-12.5 mg [Zestoretic 20-12.5] 1 tab PO DAILY Ranitidine HCl 150 mg PO BID Nitroglycerin Sl Tabs [Nitrostat] 0.4 mg SUBLINGUAL Q5M PRN PRN Reason: Chest Pain Clopidogrel [Plavix] 75 mg PO DAILY #90 tablet Pravastatin Sodium [Pravachol] 80 mg PO HS #90 tab traMADol HCL [Ultram] 25 - 50 mg PO Q6HR PRN PRN Reason: Breakthrough Pain Hydrocortisone Cream [Hydrocortisone 2.5% Cream] 1 applic TOPICAL BID PRN PRN Reason: Dry Skin metFORMIN HCL [metFORMIN HCL ER] 1,000 mg PO BID-W/MEALS Psyllium Husk [Metamucil] 0.4 gm PO DAILY Discharge Medication List Acetaminophen [Tylenol Arthritis] 1,300 mg PO BID 11/30/17 [History] Albuterol Inhaler [Ventolin Hfa Inhaler] 1 - 2 puff INHALATION RT-Q6H PRN 11/30/17 [History] Ascorbic Acid [Vitamin C] 500 mg PO DAILY 11/30/17 [History] Aspirin 81 mg PO HS 11/30/17 [History] Atenolol [Tenormin] 50 mg PO DAILY 11/30/17 [History] Cholecalciferol [Vitamin D3] 5,000 unit PO DAILY 11/30/17 [History] Cyanocobalamin (Vitamin B-12) [Vitamin B-12] 2,500 mcg PO DAILY 11/30/17 [History] Dicyclomine [Bentyl] 20 mg PO BID 11/30/17 [History] Gabapentin [Neurontin] 100 mg PO TID 11/30/17 [History] Diphenox-Atrop 2.5-0.025 mg [Lomotil] 1 - 2 tab PO BID PRN 11/24/18 [History] Lisinopril-Hctz 20-12.5 mg [Zestoretic 20-12.5] 1 tab PO DAILY 11/24/18 [History] Nitroglycerin Sl Tabs [Nitrostat] 0.4 mg SUBLINGUAL Q5M PRN 11/24/18 [History] Ranitidine HCl 150 mg PO BID 11/24/18 [History] Clopidogrel [Plavix] 75 mg PO DAILY #90 tablet 11/27/18 [Rx] Pravastatin Sodium [Pravachol] 80 mg PO HS #90 tab 11/27/18 [Rx] Hydrocortisone Cream [Hydrocortisone 2.5% Cream] 1 applic TOPICAL BID PRN 04/18/19 [History] Psyllium Husk [Metamucil] 0.4 gm PO DAILY 04/18/19 [History] metFORMIN HCL [metFORMIN HCL ER] 1,000 mg PO BID-W/MEALS 04/18/19 [History] traMADol HCL [Ultram] 25 - 50 mg PO Q6HR PRN 04/18/19 [History] Follow up Appointment(s)/Referral(s): Luis Fernando Dupree MD [Primary Care Provider] - 1-2 days Raffaele Orr MD [STAFF PHYSICIAN] - 1 Week (I will call the patient with follow-up, and plan for surgical removal stone and stent) Discharge Disposition: HOME SELF-CARE
--- NOTE | 2019-04-18 13:25 | FL ---
EXAMINATION TYPE: FL guidance operating room DATE OF EXAM: 04/18/2019 CLINICAL HISTORY: Right ureter stone. TECHNIQUE: Fluoroscopy. COMPARISON: CT abdomen and pelvis one day earlier. FINDINGS: Fluoroscopic guidance was provided during ureter stent insertion procedure performed by Dr Joe Orr. A total of 17 seconds of fluoroscopic time was utilized during the procedure and one spot i ntraoperative image is acquired. Single image acquired shows partial visualization of ureter stent. IMPRESSION: As Above.
[2019-04-18 14:04] VITALS: BP 132/74; PULSE 70
[2019-04-18] MEDS ORDERED: metFORMIN 500 MG TAB PO SCH (17:30)
[2019-04-18 18:09] LABS: Hemoglobin A1C 7.2 % (4.0-6.0)
--- NOTE | 2019-04-19 08:20 | CONS ---
CONSULTATION DATE OF CONSULTATION: 04/18/[address] Ruelas. On April 18, 2019, became twice to the floor to see the patient, the patient was off the floor. I came back later in the day to see the patient. I was informed that the patient is discharged. Nobody had called me that the patient was discharged. The consultation was not done by me. Thank you, Dr. Ruelas. STEPHAN / CANDY: [phone] /
[2019-04-19] MEDS ORDERED: CLOPIDOGREL 75 MG TAB PO SCH (09:00)
[2019-04-19] MEDS ORDERED: ASPIRIN 81 MG PO SCH (09:00)
== END 2019-04-18 16:20 | disposition home or self-care (01) | DRG 661 ==
LOC: EC 19:22 → 3NMEDONC 23:03
PROVIDERS: ADMIT Urology; ATTEND Urology
PROC: 0T768DZ Dilation of Right Ureter with Intraluminal Device, Via Natural or Artificial Opening Endoscopic (ICD-10-PCS; principal; 2019-04-18 07:30)
DX: N13.2 Hydronephrosis with renal and ureteral calculous obstruction (principal); E11.9 Type 2 diabetes mellitus without complications; E78.5 Hyperlipidemia, unspecified; I10 Essential (primary) hypertension; I25.10 Atherosclerotic heart disease of native coronary artery without angina pectoris; J45.909 Unspecified asthma, uncomplicated; M54.30 Sciatica, unspecified side; N17.9 Acute kidney failure, unspecified; Z79.02 Long term (current) use of antithrombotics/antiplatelets; Z79.82 Long term (current) use of aspirin; Z79.899 Other long term (current) drug therapy; Z80.0 Family history of malignant neoplasm of digestive organs; Z85.528 Personal history of other malignant neoplasm of kidney; Z87.19 Personal history of other diseases of the digestive system; Z87.442 Personal history of urinary calculi; Z90.5 Acquired absence of kidney; Z79.84 Long term (current) use of oral hypoglycemic drugs
CPT/HCPCS: 36415; 74018; 74176; 80048; 80053; 81001; 83036; 83605; 83690; 85025; 85610; 85730; 96361; 96374; 96375; 96376; 99285

== ENCOUNTER 2019-04-25 17:29 | Observation (INO) | payer MEDICARE ==
[2019-04-25] MEDS ORDERED: SODIUM CHLORIDE 0.9% 1,000 ML IV STA (17:50)
[2019-04-25] MEDS ORDERED: ONDANSETRON 4 MG/2 ML VIAL IVP STA (17:50)
[2019-04-25] MEDS ORDERED: HYDROmorphone 1 MG/ML 1 ML SYRINGE IVP STA ×2 (17:50→18:59)
--- NOTE | 2019-04-25 18:07 | ED ---
Abdominal Pain HPI - General Chief Complaint: Abdominal Pain Stated Complaint: Kidney stones Time Seen by Provider: 04/25/19 17:45 Source: patient Mode of arrival: ambulatory Limitations: no limitations - History of Present Illness Initial Comments: 69-year-old male patient who is status post lithotripsy today on the right side presents to the emergency department today for evaluation of increased right flank pain. Patient states that his pain has been steadily worsening since the procedure. States he is having gritty bloody urine output. Denies any fever or chills. States he has been nauseous and has vomited. Patient does have history of left-sided nephrectomy with cancer. Denies any pain to his abdomen. Patient denies any recent rash, shortness breath, chest pain, diarrhea, constipation, numbness, tingling, dizziness, weakness, headache, visual changes, or any other complaints. - Related Data Home Medications Medication Instructions Recorded Confirmed Acetaminophen [Tylenol Arthritis] 1,300 mg PO BID 11/30/17 04/18/19 Albuterol Inhaler [Ventolin Hfa 1 - 2 puff INHALATION RT-Q6H PRN 11/30/17 Inhaler] Ascorbic Acid [Vitamin C] 500 mg PO DAILY 11/30/17 04/18/19 Aspirin 81 mg PO HS 11/30/17 04/18/19 Atenolol [Tenormin] 50 mg PO DAILY 11/30/17 04/18/19 Cholecalciferol [Vitamin D3] 5,000 unit PO DAILY 11/30/17 04/18/19 Cyanocobalamin (Vitamin B-12) 2,500 mcg PO DAILY 11/30/17 04/18/19 [Vitamin B-12] Dicyclomine [Bentyl] 20 mg PO BID 11/30/17 04/18/19 Gabapentin [Neurontin] 100 mg PO TID 11/30/17 04/18/19 Diphenox-Atrop 2.5-0.025 mg 1 - 2 tab PO BID PRN 11/24/18 04/18/19 [Lomotil] Lisinopril-Hctz 20-12.5 mg 1 tab PO DAILY 11/24/18 04/18/19 [Zestoretic 20-12.5] Nitroglycerin Sl Tabs [Nitrostat] 0.4 mg SUBLINGUAL Q5M PRN 11/24/18 04/18/19 Ranitidine HCl 150 mg PO BID 11/24/18 04/18/19 Hydrocortisone Cream 1 applic TOPICAL BID PRN 04/18/19 04/18/19 [Hydrocortisone 2.5% Cream] Psyllium Husk [Metamucil] 0.4 gm PO DAILY 04/18/19 04/18/19 metFORMIN HCL [metFORMIN HCL ER] 1,000 mg PO BID-W/MEALS 04/18/19 04/18/19 traMADol HCL [Ultram] 25 - 50 mg PO Q6HR PRN 04/18/19 04/18/19 Previous Rx's Medication Instructions Recorded Clopidogrel [Plavix] 75 mg PO DAILY #90 tablet 11/27/18 Pravastatin Sodium [Pravachol] 80 mg PO HS #90 tab 11/27/18 Allergies Allergy/AdvReac Type Severity Reaction Status Date / Time No Known Allergies Allergy Verified 04/18/19 11:25 Review of Systems ROS Statement: Those systems with pertinent positive or pertinent negative responses have been documented in the HPI. ROS Other: All systems not noted in ROS Statement are negative. Past Medical History Past Medical History: Asthma, Coronary Artery Disease (CAD), Cancer, Diabetes Mellitus, GERD/Reflux, Hyperlipidemia, Hypertension, Skin Disorder Additional Past Medical History / Comment(s): See Dr Kang's H&P,IBS, hx. kidney cancer 2014, hx. colon polyps, lipodystrophy,roscea History of Any Multi-Drug Resistant Organisms: None Reported Past Surgical History: Heart Catheterization With Stent Additional Past Surgical History / Comment(s): left nephrectomy, colonoscopy Past Anesthesia/Blood Transfusion Reactions: No Reported Reaction Additional Past Anesthesia/Blood Transfusion Reaction / Comment(s): no hx blood transfusion Date of Last Stent Placement:: 11/26/18 Past Psychological History: No Psychological Hx Reported Smoking Status: Never smoker Past Alcohol Use History: Rare Past Drug Use History: None Reported - Past Family History Father Family Medical History: Cancer Additional Family Medical History / Comment(s): colon cancer Mother Family Medical History: Cancer Additional Family Medical History / Comment(s): cervical General Exam Limitations: no limitations General appearance: alert, in no apparent distress, other (This is a well- developed, well-nourished adult male patient in mild distress related to pain. Vital signs upon presentation are temperature 97.5F, pulse 72, respirations 19, blood pressure 155/79, pulse ox 98% on room air.) Eye exam: Present: normal appearance, PERRL, EOMI. Absent: scleral icterus, conjunctival injection, periorbital swelling ENT exam: Present: normal exam, normal oropharynx, mucous membranes moist Respiratory exam: Present: normal lung sounds bilaterally. Absent: respiratory distress, wheezes, rales, rhonchi, stridor Cardiovascular Exam: Present: regular rate, normal rhythm, normal heart sounds. Absent: systolic murmur, diastolic murmur, rubs, gallop, clicks GI/Abdominal exam: Present: soft, normal bowel sounds. Absent: distended, tenderness, guarding, rebound, rigid Neurological exam: Present: alert, oriented X3, CN II-XII intact Psychiatric exam: Present: normal affect, normal mood Skin exam: Present: warm, dry, intact, normal color. Absent: rash Course Vital Signs 04/25/19 04/25/19 04/25/19 17:34 19:12 19:25 Temperature 97.5 F L 98.5 F Pulse Rate 72 75 Respiratory 19 18 Rate Blood Pressure 155/79 149/82 O2 Sat by Pulse 98 93 L Oximetry 04/25/19 04/25/19 04/25/19 20:27 21:06 22:00 Temperature 97.9 F Pulse Rate 76 71 76 Respiratory 18 17 18 Rate Blood Pressure 162/88 150/89 149/86 O2 Sat by Pulse 93 L 93 L 96 Oximetry Medical Decision Making - Medical Decision Making 69-year-old male patient with history of kidney stones presents to the emergency department today for evaluation of severe right flank pain after having lithotripsy this morning. Physical examination reveals right CVA tenderness. Labs reviewed and did reveal impaired renal function which has improved over the last couple of weeks. Urinalysis showed greater than 182 red blood cells, urine appeared thickened grossly bloody. Patient is afebrile. He was given several doses of pain medication and IV fluids without relief. My attending Dr. Gay speak to the oncall urologist Dr. Dias who recommends admission to medicine with urology on consult. Patient is agreeable with this plan. He will be admitted to [facility]. - Lab Data Result diagrams: 04/25/19 18:01 04/25/19 18:01 Lab Results 04/25/19 04/25/19 04/25/19 Range/Units 18:01 18:01 20:35 WBC 10.8 H (3.8-10.6) k/uL RBC 4.53 (4.30-5.90) m/uL Hgb 14.4 (13.0-17.5) gm/dL Hct 40.8 (39.0-53.0) % MCV 90.0 (80.0-100.0) fL MCH 31.8 (25.0-35.0) pg MCHC 35.3 (31.0-37.0) g/dL RDW 12.3 (11.5-15.5) % Plt Count 151 (150-450) k/uL Neutrophils % 73 % Lymphocytes % 18 % Monocytes % 4 % Eosinophils % 3 % Basophils % 0 % Neutrophils # 7.9 H (1.3-7.7) k/uL Lymphocytes # 1.9 (1.0-4.8) k/uL Monocytes # 0.5 (0-1.0) k/uL Eosinophils # 0.4 (0-0.7) k/uL Basophils # 0.0 (0-0.2) k/uL Sodium 141 (137-145) mmol/L Potassium 3.9 (3.5-5.1) mmol/L Chloride 106 (98-107) mmol/L Carbon Dioxide 24 (22-30) mmol/L Anion Gap 11 mmol/L BUN 22 H (9-20) mg/dL Creatinine 1.48 H (0.66-1.25) mg/dL Est GFR (CKD-EPI)AfAm 56 (>60 ml/min/1.73 sqM) Est GFR (CKD-EPI)NonAf 48 (>60 ml/min/1.73 sqM) Glucose 202 H (74-99) mg/dL Calcium 9.8 (8.4-10.2) mg/dL Total Bilirubin 0.8 (0.2-1.3) mg/dL AST 20 (17-59) U/L ALT 30 (21-72) U/L Alkaline Phosphatase 64 (38-126) U/L Total Protein 7.4 (6.3-8.2) g/dL Albumin 4.7 (3.5-5.0) g/dL Amylase 90 (30-110) U/L Lipase 97 (23-300) U/L Urine Color Red Urine Appearance Bloody (Clear) Urine RBC >182 H (0-5) /hpf Urine WBC Clumps Many H (None) /hpf - Radiology Data Radiology results: report reviewed, image reviewed 2 views of the abdomen are obtained. Report reviewed in its entirety. Impression by Dr. Perales shows nonacute abdomen. No adverse change. Disposition Clinical Impression: Intractable abdominal pain, Right flank pain Disposition: ADMITTED IP TO [facility] Condition: Serious Referrals: Luis Fernando Dupree MD [Primary Care Provider] - 1-2 days Decision to Admit Reason: Admit from EC Decision Date: 04/25/19 Decision Time: 22:20
[2019-04-25 18:23] LABS: Basophils % (A) 0 %; Eosinophils # (A) 0.4 k/uL (0-0.7); Eosinophils % (A) 3 %; HCT 40.8 % (39.0-53.0); HGB 14.4 gm/dL (13.0-17.5); Lymphocytes # (A) 1.9 k/uL (1.0-4.8); Lymphocytes % (A) 18 %; MCH 31.8 pg (25.0-35.0); MCHC 35.3 g/dL (31.0-37.0); Mean Platelet Volume 7.7; Monocytes # (A) 0.5 k/uL (0-1.0); Monocytes % (A) 4 %; Neutrophils # (A) 7.9 k/uL (1.3-7.7); Neutrophils % (A) 73 %; Platelet Count 151 k/uL (150-450); RBC 4.53 m/uL (4.30-5.90); RDW 12.3 % (11.5-15.5); WBC 10.8 k/uL (3.8-10.6)
[2019-04-25 18:36] LABS: Albumin 4.7 g/dL (3.5-5.0); Calcium 9.8 mg/dL (8.4-10.2); Potassium 3.9 mmol/L (3.5-5.1); Total Bilirubin 0.8 mg/dL (0.2-1.3); Total Protein 7.4 g/dL (6.3-8.2)
--- NOTE | 2019-04-25 18:52 | XR ---
EXAMINATION TYPE: XR KUB DATE OF EXAM: 04/25/2019 COMPARISON: 04/17/2019 HISTORY: Abdominal pain TECHNIQUE: 2 views upright FINDINGS: There is no sign of intestinal obstruction or pneumoperitoneum. Fecal pattern is normal. Th ere are clips in the epigastrium. There is no evidence of a mass. IMPRESSION: Nonacute abdomen. No adverse change.
[2019-04-25] MEDS ORDERED: TAMSULOSIN 0.4 MG CAP.ER.24H PO STA (19:50)
[2019-04-25] MEDS ORDERED: KETOROLAC 30 MG/ML 1 ML VIAL IVP STA (19:50)
[2019-04-25 20:52] LABS: Appearance,Urine Bloody (Clear); Color,Urine Red; RBC,Urine >182 /hpf (0-5)
[2019-04-25] MEDS ORDERED: MORPHINE SULFATE 4 MG/ML SYRINGE IVP STA (21:42)
[2019-04-25] MEDS ORDERED: NALOXONE 0.4 MG/ML 1 ML VIAL IV PRN (22:12)
[2019-04-25] MEDS ORDERED: ONDANSETRON 4 MG/2 ML VIAL IVP PRN (22:12)
[2019-04-25] MEDS ORDERED: MORPHINE SULFATE 4 MG/ML SYRINGE IV PRN (22:12)
[2019-04-25] MEDS: SODIUM CHLORIDE 0.9% 1,000 ML IV SCH (22:52)
--- NOTE | 2019-04-25 23:26 | P.HPIM ---
History of Present Illness H&P Date: 04/25/19 The patient is a 69 yo M with a PMH of CAD, HTN, HLD, Type 2 DM, CKD, kidney malignancy s/p L nephrectomy, recurrent nephrolithiasis s/p R ureteroscopy w/ lithotripsy and stent removal earlier today who presented to the ED w/ complaints of R flank pain and hematuria. The patient notes that following his procedure earlier today, he developed severe R flank pain, 10/10 at around 4 pm, unremitting, radiating to the R groin, w/ associated hematuria, and no alleviating or exacerbating factors. He reports noticing passing some "sand" though didn't notice passing any stones. At time of the interview, he reports pain improved to 4/10 following morphine. He denied any additional complaints. Denied diarrhea, fever, chills, nausea, vomiting, dizziness, chest pain, or SOB. Patient underwent extensive evaluation in the ED w/ KUB X-ray which as unremarkable. Laboratory evaluation revleaed a WBC count of 10.8, Hgb 14.4, plt 151, Na 141, K 3.9, BUN 22, Cr 1.48, and UA showing >182 RBCs. Urology was co nsulted who recommended admission under medicine. Review of Systems Pertinent positives and negatives as discussed in HPI, a complete review of systems was performed and all other systems are negative. Past Medical History Past Medical History: Asthma, Coronary Artery Disease (CAD), Cancer, Diabetes Mellitus, GERD/Reflux, Hyperlipidemia, Hypertension, Skin Disorder Additional Past Medical History / Comment(s): See Dr Kang's H&P,IBS, hx. kidney cancer 2014, hx. colon polyps, lipodystrophy,roscea History of Any Multi-Drug Resistant Organisms: None Reported Past Surgical History: Heart Catheterization With Stent Additional Past Surgical History / Comment(s): left nephrectomy, colonoscopy Past Anesthesia/Blood Transfusion Reactions: No Reported Reaction Additional Past Anesthesia/Blood Transfusion Reaction / Comment(s): no hx blood transfusion Date of Last Stent Placement:: 11/26/18 Past Psychological History: No Psychological Hx Reported Smoking Status: Never smoker Past Alcohol Use History: Rare Past Drug Use History: None Reported - Past Family History Father Family Medical History: Cancer Additional Family Medical History / Comment(s): colon cancer Mother Family Medical History: Cancer Additional Family Medical History / Comment(s): cervical Medications and Allergies Home Medications Medication Instructions Recorded Confirmed Type Acetaminophen [Tylenol Arthritis] 1,300 mg PO BID 11/30/17 04/18/19 History Albuterol Inhaler [Ventolin Hfa 1 - 2 puff INHALATION RT-Q6H PRN 11/30/17 04/18/19 History Inhaler] Ascorbic Acid [Vitamin C] 500 mg PO DAILY 11/30/17 04/18/19 History Aspirin 81 mg PO HS 11/30/17 04/18/19 History Atenolol [Tenormin] 50 mg PO DAILY 11/30/17 04/18/19 History Cholecalciferol [Vitamin D3] 5,000 unit PO DAILY 11/30/17 04/18/19 History Cyanocobalamin (Vitamin B-12) 2,500 mcg PO DAILY 11/30/17 04/18/19 History [Vitamin B-12] Dicyclomine [Bentyl] 20 mg PO BID 11/30/17 04/18/19 History Gabapentin [Neurontin] 100 mg PO TID 11/30/17 04/18/19 History Diphenox-Atrop 2.5-0.025 mg 1 - 2 tab PO BID PRN 11/24/18 04/18/19 History [Lomotil] Lisinopril-Hctz 20-12.5 mg 1 tab PO DAILY 11/24/18 04/18/19 History [Zestoretic 20-12.5] Nitroglycerin Sl Tabs [Nitrostat] 0.4 mg SUBLINGUAL Q5M PRN 11/24/18 04/18/19 History Ranitidine HCl 150 mg PO BID 11/24/18 04/18/19 History Clopidogrel [Plavix] 75 mg PO DAILY #90 tablet 11/27/18 04/18/19 Rx Pravastatin Sodium [Pravachol] 80 mg PO HS #90 tab 11/27/18 04/18/19 Rx Hydrocortisone Cream 1 applic TOPICAL BID PRN 04/18/19 04/18/19 History [Hydrocortisone 2.5% Cream] Psyllium Husk [Metamucil] 0.4 gm PO DAILY 04/18/19 04/18/19 History metFORMIN HCL [metFORMIN HCL ER] 1,000 mg PO BID-W/MEALS 04/18/19 04/18/19 History traMADol HCL [Ultram] 25 - 50 mg PO Q6HR PRN 04/18/19 04/18/19 History Allergies Allergy/AdvReac Type Severity Reaction Status Date / Time No Known Allergies Allergy Verified 04/18/19 11:25 Physical Exam Vitals: Vital Signs Temp Pulse Resp BP Pulse Ox 04/25/19 22:00 76 18 149/86 96 04/25/19 21:06 97.9 F 71 17 150/89 93 L 04/25/19 20:27 76 18 162/88 93 L 04/25/19 19:25 98.5 F 04/25/19 19:12 75 18 149/82 93 L 04/25/19 17:34 97.5 F L 72 19 155/79 98 Intake and Output 04/25/19 04/25/19 04/26/19 14:59 22:59 06:59 Other: Voiding Method Toilet Weight 102.965 kg General: non toxic, no distress, appears at stated age, normal weight Derm: no unusual rashes/lesions no unusual ecchymoses, warm, dry Head: atraumatic, normocephalic, symmetric Eyes: Strabismus, no lid lag, anicteric sclera, pupils equal round reactive to light ENT: Nose and ears atraumatic, no thrush, no pharyngeal erythema Neck: No thyromegaly, no cervical lymphadenopathy, trachea midline, supple Mouth: no lip lesion, mucus membranes moist Cardiovascular: S1S2 reg, no murmur, positive posterior tibial pulse bilateral, no edema, capillary refill less than 2 seconds Lungs: CTA bilateral, no rhonchi, no rales , no accessory muscle use Abdominal: soft, R flank and CVA tenderness, mild guarding, no appreciable organomegaly, normal bowel sounds Ext: no gross muscle atrophy, muscle strength 5 out of 5 in all 4 extremities grossly, no contractures, Neuro: CN II-XI grossly intact, light touch intact all 4 extremities, finger to nose within normal limits, Psych: Alert, oriented, appropriate affect Results CBC & Chem 7: 04/25/19 18:01 04/25/19 18:01 Labs: Abnormal Lab Results - Last 24 Hours (Table) 04/25/19 04/25/19 04/25/19 Range/Units 18:01 18:01 20:35 WBC 10.8 H (3.8-10.6) k/uL Neutrophils # 7.9 H (1.3-7.7) k/uL BUN 22 H (9-20) mg/dL Creatinine 1.48 H (0.66-1.25) mg/dL Glucose 202 H (74-99) mg/dL Urine RBC >182 H (0-5) /hpf Urine WBC Clumps Many H (None) /hpf Assessment and Plan Plan: Nephrolithiasis s/p ureteroscopy earlier today w/ lithotripsy and stent removal -Urology consulted -C/w IVFs 150 cc/hr -C/w Flomax -Strain urine -Pain control w/ Morphine Type 2 DM -VIOLETA with FS HTN, HLD, CAD -C/w home meds DVT prophylaxis -Heparin The patient is admitted with an anticipated less than 2 midnight stay for evaluation of nephrolithiasis CODE STATUS: Full Code Discussed with: Patient, Anticipated discharge date: 1-[address]: Home A total of 35 minutes was spent on the care of this complex patient more than 50% of the time was spent in counseling and care coordination.
[2019-04-26] MEDS: HEPARIN SODIUM,PORCINE 5,000 UNIT/ML 1 ML VIAL SQ SCH ×2 (00:03→08:19)
[2019-04-26] MEDS: SODIUM CHLORIDE 0.9% 1,000 ML IV SCH (00:21)
[2019-04-26 06:38] LABS: Glucose,Whole Blood 150 mg/dL (75-99)
[2019-04-26] MEDS: MORPHINE SULFATE 2 MG/ML SYRINGE IVP PRN ×2 (06:46→09:16)
[2019-04-26 07:09] LABS: Calcium 8.6 mg/dL (8.4-10.2); Potassium 4.4 mmol/L (3.5-5.1)
[2019-04-26 07:54] VITALS: BP 129/75; PULSE 94; RESP 18; TEMP 98.9
[2019-04-26] MEDS: INSULIN ASPART (NovoLOG) 100 UNIT/ML VIAL SQ SCH ×2 (08:14→12:10)
[2019-04-26] MEDS ORDERED: CLOPIDOGREL 75 MG TAB PO SCH (09:00)
[2019-04-26] MEDS ORDERED: TAMSULOSIN 0.4 MG CAP.ER.24H PO SCH (09:00)
[2019-04-26] MEDS ORDERED: GABAPENTIN 100 MG CAP PO SCH (09:00)
[2019-04-26] MEDS ORDERED: LISINOPRIL-HCTZ 20-12.5 MG 1 EACH TAB PO SCH (09:00)
[2019-04-26] MEDS ORDERED: ATENOLOL 50 MG TAB PO SCH (09:00)
[2019-04-26] MEDS ORDERED: DICYCLOMINE 20 MG TAB PO SCH (09:00)
[2019-04-26 11:49] LABS: Glucose,Whole Blood 162 mg/dL (75-99)
--- NOTE | 2019-04-26 13:04 | P.DS ---
Providers Date of admission: 04/25/19 22:07 Attending physician: [place] Gee Consults: 04/25/19 22:15 Consult Physician Routine Consulting Provider: Raffaele Orr Consult Reason/Comments: Right flank pain Do you want consulting provider notified?: Yes Primary care physician: Luis Fernando Dupree [place] [facility] Course: 69 yo male who underwent a ureteroscopy and laser lithotripsy to a right ureteral stone yesterday He had post op ureteral colic due to scope manipulation edema. He was brought into the hospital for pain control the pain has subsided His vss He will be d/c home He will fu inour office next week A small rx for norco has been writtn His condition is good Patient Condition at Discharge: Good Plan - Discharge Summary Discharge Rx Participant: Yes New Discharge Prescriptions: New HYDROcodone/APAP 5-325MG [Purdys 5-325] 1 tab PO Q4HR PRN #10 tab PRN Reason: Pain No Action Albuterol Inhaler [Ventolin Hfa Inhaler] 1 - 2 puff INHALATION RT-Q6H PRN PRN Reason: Dyspnea Gabapentin [Neurontin] 100 mg PO TID Dicyclomine [Bentyl] 20 mg PO BID Atenolol [Tenormin] 50 mg PO DAILY Aspirin 81 mg PO HS Cholecalciferol [Vitamin D3] 5,000 unit PO DAILY Ascorbic Acid [Vitamin C] 500 mg PO DAILY Cyanocobalamin (Vitamin B-12) [Vitamin B-12] 2,500 mcg PO DAILY Acetaminophen [Tylenol Arthritis] 1,300 mg PO BID Diphenox-Atrop 2.5-0.025 mg [Lomotil] 1 - 2 tab PO BID PRN PRN Reason: loose stools Lisinopril-Hctz 20-12.5 mg [Zestoretic 20-12.5] 1 tab PO DAILY Ranitidine HCl 150 mg PO BID Nitroglycerin Sl Tabs [Nitrostat] 0.4 mg SUBLINGUAL Q5M PRN PRN Reason: Chest Pain Clopidogrel [Plavix] 75 mg PO DAILY #90 tablet Pravastatin Sodium [Pravachol] 80 mg PO HS #90 tab traMADol HCL [Ultram] 25 - 50 mg PO Q6HR PRN PRN Reason: Breakthrough Pain Hydrocortisone Cream [Hydrocortisone 2.5% Cream] 1 applic TOPICAL BID PRN PRN Reason: Dry Skin metFORMIN HCL [metFORMIN HCL ER] 1,000 mg PO BID-W/MEALS Psyllium Husk [Metamucil] 0.4 gm PO DAILY Discharge Medication List Acetaminophen [Tylenol Arthritis] 1,300 mg PO BID 11/30/17 [History] Albuterol Inhaler [Ventolin Hfa Inhaler] 1 - 2 puff INHALATION RT-Q6H PRN 11/30/17 [History] Ascorbic Acid [Vitamin C] 500 mg PO DAILY 11/30/17 [History] Aspirin 81 mg PO HS 11/30/17 [History] Atenolol [Tenormin] 50 mg PO DAILY 11/30/17 [History] Cholecalciferol [Vitamin D3] 5,000 unit PO DAILY 11/30/17 [History] Cyanocobalamin (Vitamin B-12) [Vitamin B-12] 2,500 mcg PO DAILY 11/30/17 [History] Dicyclomine [Bentyl] 20 mg PO BID 11/30/17 [History] Gabapentin [Neurontin] 100 mg PO TID 11/30/17 [History] Diphenox-Atrop 2.5-0.025 mg [Lomotil] 1 - 2 tab PO BID PRN 11/24/18 [History] Lisinopril-Hctz 20-12.5 mg [Zestoretic 20-12.5] 1 tab PO DAILY 11/24/18 [History] Nitroglycerin Sl Tabs [Nitrostat] 0.4 mg SUBLINGUAL Q5M PRN 11/24/18 [History] Ranitidine HCl 150 mg PO BID 11/24/18 [History] Clopidogrel [Plavix] 75 mg PO DAILY #90 tablet 11/27/18 [Rx] Pravastatin Sodium [Pravachol] 80 mg PO HS #90 tab 11/27/18 [Rx] Hydrocortisone Cream [Hydrocortisone 2.5% Cream] 1 applic TOPICAL BID PRN 04/18/19 [History] Psyllium Husk [Metamucil] 0.4 gm PO DAILY 04/18/19 [History] metFORMIN HCL [metFORMIN HCL ER] 1,000 mg PO BID-W/MEALS 04/18/19 [History] traMADol HCL [Ultram] 25 - 50 mg PO Q6HR PRN 04/18/19 [History] HYDROcodone/APAP 5-325MG [Purdys 5-325] 1 tab PO Q4HR PRN #10 tab 04/26/19 [Rx] Follow up Appointment(s)/Referral(s): Luis Fernando Dupree MD [Primary Care Provider] - 1-2 days Raffaele Orr MD [STAFF PHYSICIAN] - 05/02/19 Discharge Disposition: HOME SELF-CARE
--- NOTE | 2019-04-26 13:29 | P.GSCN ---
History of Present Illness Consult date: 04/26/19 Reason for Consult: Right flank pain Requesting physician: Irina Sr History of present illness: Mr. Melissa is a 69-year-old male with history of solitary right kidney. He previously underwent a left nephrectomy secondary for renal cell carcinoma. He was admitted on 04/17/19 with right-sided flank pain, that is associated with nausea and vomiting due to a 3-4 mm right proximal stone with hydronephrosis. He underwent stent placement on 04/17/19, and on 04/25/19 he underwent right ureteroscopy with laser lithotripsy. He presented to the emergency room that evening with right flank pain which could not be controlled with analgesics. Review of Systems - Constitutional Denies chills, Denies fever - Gastrointestinal Reports nausea, Reports vomiting - Genitourinary Reports flank pain, Reports hematuria Past Medical History Past Medical History: Asthma, Coronary Artery Disease (CAD), Cancer, Diabetes Mellitus, GERD/Reflux, Hyperlipidemia, Hypertension, Skin Disorder Additional Past Medical History / Comment(s): See Dr Kang's H&P,IBS, hx. kidney cancer 2014, hx. colon polyps, lipodystrophy,roscea History of Any Multi-Drug Resistant Organisms: None Reported Past Surgical History: Heart Catheterization With Stent Additional Past Surgical History / Comment(s): left nephrectomy, colonoscopy Past Anesthesia/Blood Transfusion Reactions: No Reported Reaction Additional Past Anesthesia/Blood Transfusion Reaction / Comm: no hx blood transfusion Date of Last Stent Placement:: 11/26/18 Past Psychological History: No Psychological Hx Reported Smoking Status: Never smoker Past Alcohol Use History: Rare Past Drug Use History: None Reported - Past Family History Father Family Medical History: Cancer Additional Family Medical History / Comment(s): colon cancer Mother Family Medical History: Cancer Additional Family Medical History / Comment(s): cervical Medications and Allergies Home Medications Medication Instructions Recorded Confirmed Type Acetaminophen [Tylenol Arthritis] 1,300 mg PO BID 11/30/17 04/25/19 History Albuterol Inhaler [Ventolin Hfa 1 - 2 puff INHALATION RT-Q6H PRN 11/30/17 04/25/19 History Inhaler] Ascorbic Acid [Vitamin C] 500 mg PO DAILY 11/30/17 04/25/19 History Aspirin 81 mg PO HS 11/30/17 04/25/19 History Atenolol [Tenormin] 50 mg PO DAILY 11/30/17 04/25/19 History Cholecalciferol [Vitamin D3] 5,000 unit PO DAILY 11/30/17 04/25/19 History Cyanocobalamin (Vitamin B-12) 2,500 mcg PO DAILY 11/30/17 04/25/19 History [Vitamin B-12] Dicyclomine [Bentyl] 20 mg PO BID 11/30/17 04/25/19 History Gabapentin [Neurontin] 100 mg PO TID 11/30/17 04/25/19 History Diphenox-Atrop 2.5-0.025 mg 1 - 2 tab PO BID PRN 11/24/18 04/25/19 History [Lomotil] Lisinopril-Hctz 20-12.5 mg 1 tab PO DAILY 11/24/18 04/25/19 History [Zestoretic 20-12.5] Nitroglycerin Sl Tabs [Nitrostat] 0.4 mg SUBLINGUAL Q5M PRN 11/24/18 04/25/19 History Ranitidine HCl 150 mg PO BID 11/24/18 04/25/19 History Clopidogrel [Plavix] 75 mg PO DAILY #90 tablet 11/27/18 04/25/19 Rx Pravastatin Sodium [Pravachol] 80 mg PO HS #90 tab 11/27/18 04/25/19 Rx Hydrocortisone Cream 1 applic TOPICAL BID PRN 04/18/19 04/25/19 History [Hydrocortisone 2.5% Cream] Psyllium Husk [Metamucil] 0.4 gm PO DAILY 04/18/19 04/25/19 History metFORMIN HCL [metFORMIN HCL ER] 1,000 mg PO BID-W/MEALS 04/18/19 04/25/19 History traMADol HCL [Ultram] 25 - 50 mg PO Q6HR PRN 04/18/19 04/25/19 History HYDROcodone/APAP 5-325MG [[place] 1 tab PO Q4HR PRN #10 tab 04/26/19 Rx 5-325] Allergies Allergy/AdvReac Type Severity Reaction Status Date / Time No Known Allergies Allergy Verified 04/25/19 23:40 Surgical - Exam Vital Signs Temp Pulse Resp BP Pulse Ox 97.5 F L 72 19 155/79 98 04/25/19 17:34 04/25/19 17:34 04/25/19 17:34 04/25/19 17:34 04/25/19 17:34 - General well developed, well nourished, no distress - Respiratory normal respiratory effort - Abdomen Abdomen: soft, tender (right-sided tenderness is noted), no guarding, no rigid, no rebound, no distended - Psychiatric oriented to time, oriented to person, oriented to place, speech is normal, memory intact Results - Labs 04/25/19 18:01 04/26/19 06:27 Abnormal Lab Results - Last 24 Hours (Table) 04/25/19 04/25/19 04/25/19 Range/Units 18:01 18:01 20:35 WBC 10.8 H (3.8-10.6) k/uL Neutrophils # 7.9 H (1.3-7.7) k/uL Chloride (98-107) mmol/L BUN 22 H (9-20) mg/dL Creatinine 1.48 H (0.66-1.25) mg/dL Glucose 202 H (74-99) mg/dL POC Glucose (mg/dL) (75-99) mg/dL Urine RBC >182 H (0-5) /hpf Urine WBC Clumps Many H (None) /hpf 04/26/19 04/26/19 Range/Units 06:27 06:35 WBC (3.8-10.6) k/uL Neutrophils # (1.3-7.7) k/uL Chloride 110 H (98-107) mmol/L BUN 28 H (9-20) mg/dL Creatinine 2.46 H (0.66-1.25) mg/dL Glucose 136 H (74-99) mg/dL POC Glucose (mg/dL) 150 H (75-99) mg/dL Urine RBC (0-5) /hpf Urine WBC Clumps (None) /hpf Diabetes panel 04/25/19 04/26/19 Range/Units 18:01 06:27 Sodium 141 143 (137-145) mmol/L Potassium 3.9 4.4 (3.5-5.1) mmol/L Chloride 106 110 H (98-107) mmol/L Carbon Dioxide 24 22 (22-30) mmol/L BUN 22 H 28 H (9-20) mg/dL Creatinine 1.48 H 2.46 H (0.66-1.25) mg/dL Glucose 202 H 136 H (74-99) mg/dL Calcium 9.8 8.6 (8.4-10.2) mg/dL AST 20 (17-59) U/L ALT 30 (21-72) U/L Alkaline Phosphatase 64 (38-126) U/L Total Protein 7.4 (6.3-8.2) g/dL Albumin 4.7 (3.5-5.0) g/dL Calcium panel 04/25/19 04/26/19 Range/Units 18:01 06:27 Calcium 9.8 8.6 (8.4-10.2) mg/dL Albumin 4.7 (3.5-5.0) g/dL Pituitary panel 04/25/19 04/26/19 Range/Units 18:01 06:27 Sodium 141 143 (137-145) mmol/L Potassium 3.9 4.4 (3.5-5.1) mmol/L Chloride 106 110 H (98-107) mmol/L Carbon Dioxide 24 22 (22-30) mmol/L BUN 22 H 28 H (9-20) mg/dL Creatinine 1.48 H 2.46 H (0.66-1.25) mg/dL Glucose 202 H 136 H (74-99) mg/dL Calcium 9.8 8.6 (8.4-10.2) mg/dL Adrenal panel 04/25/19 04/26/19 Range/Units 18:01 06:27 Sodium 141 143 (137-145) mmol/L Potassium 3.9 4.4 (3.5-5.1) mmol/L Chloride 106 110 H (98-107) mmol/L Carbon Dioxide 24 22 (22-30) mmol/L BUN 22 H 28 H (9-20) mg/dL Creatinine 1.48 H 2.46 H (0.66-1.25) mg/dL Glucose 202 H 136 H (74-99) mg/dL Calcium 9.8 8.6 (8.4-10.2) mg/dL Total Bilirubin 0.8 (0.2-1.3) mg/dL AST 20 (17-59) U/L ALT 30 (21-72) U/L Alkaline Phosphatase 64 (38-126) U/L Total Protein 7.4 (6.3-8.2) g/dL Albumin 4.7 (3.5-5.0) g/dL Assessment and Plan Plan: The patient was admitted for pain control, and is feeling much better this morning. It does not appear that replacement of the ureteral stent will be required. He will be observed throughout the day, and I anticipate that he will be discharged home later today. Time with Patient: Less than 30
[2019-04-26] MEDS ORDERED: ASPIRIN 81 MG PO SCH (21:00)
[2019-04-26] MEDS ORDERED: PRAVASTATIN SODIUM 80 MG TAB PO SCH (21:00)
== END 2019-04-26 14:43 | disposition home or self-care (01) ==
LOC: EC 17:29 → 1SOBS 22:07
PROVIDERS: ADMIT Hospitalist; ATTEND Hospitalist
DX: R10.9 Unspecified abdominal pain (principal); R11.2 Nausea with vomiting, unspecified; R31.9 Hematuria, unspecified; Z87.442 Personal history of urinary calculi; J45.909 Unspecified asthma, uncomplicated; I25.10 Atherosclerotic heart disease of native coronary artery without angina pectoris; I12.9 Hypertensive chronic kidney disease with stage 1 through stage 4 chronic kidney disease, or unspecified chronic kidney disease; E11.22 Type 2 diabetes mellitus with diabetic chronic kidney disease; N18.9 Chronic kidney disease, unspecified; K21.9 Gastro-esophageal reflux disease without esophagitis; E78.5 Hyperlipidemia, unspecified; K58.9 Irritable bowel syndrome, unspecified; L71.9 Rosacea, unspecified; E88.1 Lipodystrophy, not elsewhere classified; Z90.5 Acquired absence of kidney; Z85.528 Personal history of other malignant neoplasm of kidney; Z95.5 Presence of coronary angioplasty implant and graft; Z80.0 Family history of malignant neoplasm of digestive organs; Z79.84 Long term (current) use of oral hypoglycemic drugs; Z79.02 Long term (current) use of antithrombotics/antiplatelets; Z79.82 Long term (current) use of aspirin; Z79.899 Other long term (current) drug therapy
CPT/HCPCS: 96372; 96376 ×2; 96361; 96374; 96375; 99285; 36415; 80053; 80048; 82150; 83690; 85025; 81001; 74018; G0378 ×2; J2270 ×3; J1644; J2405; J1885; J1170

== ENCOUNTER → 2019-12-08 | Outpatient (CLI) | payer MEDICARE ==
--- NOTE | 2019-12-08 12:06 | XR ---
EXAMINATION TYPE: XR abdomen 1V DATE OF EXAM: 12/08/2019 COMPARISON: 04/25/2019 HISTORY: Pain, right renal stone TECHNIQUE: One view abdominal series FINDINGS: The osseous structures are intact. The bowel gas pattern is nonspecific. Postsurgical change involvi ng the retroperitoneum. Nonspecific calcifications in the pelvis. Hypertrophic and degenerative headley e of the spine.. IMPRESSION: 1. Nonspecific abdomen. Calcifications in the pelvis are nonspecific and there is a 3 mm calcificati on the right hemipelvis which could be on the basis of a distal ureteral calculus. 2. No diagnostic evidence of calcifications overlying the renal outlines. There is some limitation du e to overlying bowel content.
== END | disposition home or self-care (01) ==
LOC: RADXRMAIN 11:17
PROVIDERS: ATTEND Urology
DX: N20.0 Calculus of kidney (principal)
CPT/HCPCS: 74018

== ENCOUNTER → 2020-05-23 | Outpatient (CLI) | payer MEDICARE ==
[2020-05-23 11:56] LABS: Basophils # (A) 0.1 k/uL (0-0.2); Basophils % (A) 1 %; Eosinophils # (A) 0.6 k/uL (0-0.7); Eosinophils % (A) 7 %; HCT 45.5 % (39.0-53.0); HGB 15.6 gm/dL (13.0-17.5); Lymphocytes # (A) 2.2 k/uL (1.0-4.8); Lymphocytes % (A) 26 %; MCH 31.7 pg (25.0-35.0); MCHC 34.3 g/dL (31.0-37.0); MCV 92.6 fL (80.0-100.0); Mean Platelet Volume 8.1; Monocytes # (A) 0.4 k/uL (0-1.0); Monocytes % (A) 5 %; Neutrophils # (A) 4.9 k/uL (1.3-7.7); Neutrophils % (A) 60 %; Platelet Count 137 k/uL (150-450); RBC 4.91 m/uL (4.30-5.90); RDW 12.7 % (11.5-15.5); WBC 8.3 k/uL (3.8-10.6)
[2020-05-23 12:06] LABS: Prothrombin Time 10.7 sec (9.0-12.0)
[2020-05-23 12:18] LABS: Albumin 4.8 g/dL (3.5-5.0); Calcium 10.3 mg/dL (8.4-10.2); Potassium 4.6 mmol/L (3.5-5.1); Total Bilirubin 0.7 mg/dL (0.2-1.3); Total Protein 7.4 g/dL (6.3-8.2)
== END | disposition home or self-care (01) ==
LOC: LABWHC1 10:57
PROVIDERS: ATTEND Orthopaedic Surgery
DX: Z01.818 Encounter for other preprocedural examination (principal); Z79.01 Long term (current) use of anticoagulants; Z01.812 Encounter for preprocedural laboratory examination
CPT/HCPCS: 36415; 80053; 85025; 85610; 87070

== ENCOUNTER 2020-06-05 05:44 | Inpatient (IN) | payer MEDICARE ==
[2020-05-25 15:29] VITALS: BMI 33.6
--- NOTE | 2020-06-03 15:33 | HP ---
HISTORY AND PHYSICAL CHIEF COMPLAINT: Right shoulder pain and weakness. HISTORY OF PRESENT ILLNESS: Patient is a 70-year-old, right-hand dominant, retired male who presents with progressive right shoulder pain and weakness for the past several years. He is having a difficult time with any overhead use and is having significant night symptoms. His pain intermittently is 7 to 8 out of 10. He has tried previous medications in addition to injections and exercise programs without much relief. PAST MEDICAL HISTORY: Significant for arthritis. She has hypertension, type 2 diabetes, and asthma. Coronary artery disease PAST SURGICAL HISTORY: Significant for nephrectomy for renal cancer. cardiac stent CURRENT MEDICATIONS: Atenolol, gabapentin, metformin, ranitidine, Ventolin, Plavix, Lovastatin, tramadol. ALLERGIES: He denies drug allergies. FAMILY HISTORY: Significant for cancer and diabetes. SOCIAL HISTORY: Negative for current tobacco or alcohol use. 16 POINT REVIEW OF SYSTEMS: Otherwise is reviewed and is noncontributory. PHYSICAL EXAMINATION: On examination, the patient is approximately 5 foot 9, 228 pounds of endomorphic habitus. HEENT exam is nonfocal. NECK: Supple. On the right shoulder, he is tender about the anterior subacromial space and anterior glenohumeral joint. Active range of motion, forward elevation 120 degrees. External rotation with the arm side 0 degrees, internal rotation to L4. Passively, I am able to forward elevate him to 120 degrees. He has moderate subacromial crepitus. Potter, Neer tests are positive. His distal neurovascular appears intact in the right upper extremity. Previous x-rays of the right shoulder taken in the office show diminished humeral head to acromial distance. IMPRESSION: 1. Chronic right rotator cuff tear with arthropathy. 2. Non-insulin dependent diabetes. 3. History of renal cancer. RECOMMENDATIONS: I talked to the patient at length regarding his condition and treatment options. At this point, he is quite symptomatic and limited despite previous conservative measures. After thorough discussion, he opts to proceed with surgery. We will plan to proceed with reverse right total shoulder arthroplasty. We will reinstitute his Plavix postoperatively. Risks and benefits were discussed at length in layman's terms. MMODL / IJN: [id number] / MTDDerrick
[~2020-06-05 05:44] MED LIST changes: +ACETAMINOPHEN TAB 500 MG TAB PO PRN; -ALPRAZolam 0.25 MG TAB PO PRN; -ALPRAZolam 0.5 MG TAB PO PRN; +DEXAMETHASONE SOD PHOSPHATE 4 MG/ML 1 ML VIAL IV ONE; +LIDOCAINE 1% (10MG/ML) FOR IV START INTRADERMA PRN; +MELOXICAM 7.5 MG TAB PO PRN; +MIDAZOLAM 2 MG/2 ML VIAL IV PRN; -NITROGLYCERIN SL TABS 0.4 MG TAB SUBLINGUAL PRN; +ONDANSETRON 4 MG/2 ML VIAL IVP ONE; -SODIUM CHLORIDE 0.9% 1,000 ML in EMPTY BAG 1 BAG IV ONE; +TRANEXAMIC ACID 1,000 MG in SODIUM CHLORIDE 0.9% 100 ML IVPB PRN
[2020-06-05] MEDS: LACTATED RINGERS 1,000 ML IV SCH (06:29)
[2020-06-05 06:34] LABS: Glucose,Whole Blood 181 mg/dL (75-99)
[2020-06-05] MEDS ORDERED: GLYCOPYRROLATE 0.2 MG/ML 2 ML VIAL ONE (06:55)
[2020-06-05] MEDS ORDERED: TRANEXAMIC ACID 1,000 MG/10 ML VIAL ONE (06:55)
[2020-06-05] MEDS ORDERED: PHENYLEPHRINE 10 MG/ML VIAL ONE (06:55)
[2020-06-05] MEDS ORDERED: SODIUM CHLORIDE 0.9% 100 ML BAG ONE (06:55)
[2020-06-05] MEDS ORDERED: NEOSTIGMINE 1 MG/ML 10 ML VIAL ONE (06:55)
[2020-06-05] MEDS ORDERED: ROPIVACAINE 5 MG/ML 30 ML VIAL ONE (06:55)
[2020-06-05] MEDS ORDERED: DEXAMETHASONE SOD PHOSPHATE 4 MG/ML 1 ML VIAL ONE (06:55)
[2020-06-05] MEDS ORDERED: SUCCINYLCHOLINE CHLORIDE 100 MG/5 ML SYR IV ONE (06:55)
[2020-06-05] MEDS ORDERED: MIDAZOLAM 2 MG/2 ML VIAL ONE (06:55)
[2020-06-05] MEDS ORDERED: ROCURONIUM 10 MG/ML (10 ML VIAL) IV ONE (06:55)
[2020-06-05] MEDS ORDERED: PROPOFOL 10 MG/ML 20 ML VIAL IV ONE (06:55)
[2020-06-05] MEDS ORDERED: fentaNYL (PF) 50 MCG/ML 2 ML AMP ONE (06:55)
[2020-06-05] MEDS ORDERED: LIDOCAINE 1% INJ 10MG/ML (20 ML MDV) ONE (06:55)
[2020-06-05] MEDS ORDERED: fentaNYL (PF) 50 MCG/ML 2 ML AMP IV PRN (07:00)
[2020-06-05] MEDS ORDERED: ceFAZolin 3,000 MG in SODIUM CHLORIDE 0.9% IRRIGATIO 3,000 ML IRRIGATION ONE (07:32)
[2020-06-05] MEDS ORDERED: LACTATED RINGERS 1,000 ML IV ONE ×2 (08:08→13:09)
[2020-06-05] MEDS ORDERED: ONDANSETRON 4 MG/2 ML VIAL IVP PRN (08:41)
[2020-06-05] MEDS ORDERED: HYDROcodone/APAP 5-325MG 1 EACH TAB PO PRN (08:41)
--- NOTE | 2020-06-05 09:11 | P.OP ---
Date of Procedure: 06/05/20 Preoperative Diagnosis: Right shoulder rotator cuff arthropathy Postoperative Diagnosis: Same Procedure(s) Performed: Right reverse total shoulder arthroplasty Implants: Depuy Delta Xtend size 14 press-fit humeral stem, size 2 epiphysis, 38+9 articular surface, 38 mm standard glenosphere with +10 baseplate Anesthesia: REINA Surgeon: Elijah Olmedo Application Coordinator #1: Thomas Stewart Estimated Blood Loss (ml): 200 Pathology: other (Humeral head) Condition: stable Disposition: PACU Indications for Procedure: The patient is a 70-year-old male who presents with progressive right shoulder pain despite previous conservative measures. He was noted have a chronic rotator cuff tear and arthropathy. A discussion of the risks and benefits of operative intervention versus continued conservative measures was made with patient. He opted proceed with surgery. Operative risks to include infection, neurovascular injury, development of blood clots, possible fracture, possible instability need for subsequent procedures was discussed. Informed consent was obtained. Operative Findings: As below Description of Procedure: The patient was brought to the operating room, and after induction of general anesthesia was placed in a beachchair position. The bony prominences were appropriately padded. I examined the right shoulder. There was moderate lack of passive forward elevation and external rotation. The right upper extremity was prepped and draped in normal fashion. The bony outlines the coracoid process, distal clavicle, and acromion were outlined with a skin marker. A 12 centimeter deltopectoral incision was made lateral to the coracoid process. Skin was incised sharply. Subcutaneous tissues were divided bluntly. Electrocautery was used for hemostasis. The cephalic vein was identified and gently retracted laterally with the deltoid. The deltopectoral was bluntly developed. Subdeltoid adhesions were then released. The self-retaining retractor was placed. The conjoined tendon was retracted medially and the deltoid laterally. The biceps was identified. Its sheath was opened. A biceps tenotomy was performed along the remaining tendon did retract distally. Pseudocapsule was excised. The head was then exposed. The shoulder was dislocated. A starting hole was made in line with the humeral shaft. The canal was reamed by hand up to size 14. There was good distal chatter. The cutting guide was then placed. I planned on 20 of retroversion. The humeral head cut was then made. The bone was removed in one fragment. Residual inferomedial osteophytes were removed flush with the [place] cortical bone. Attention was then paid towards preparing the glenoid. An anterior and posterior retractors placed. The labrum was released from the 12-6 o'clock position. Remaining biceps was removed as well. A guidepin was placed in the inferior aspect of the glenoid with the guide slightly tilting inferior. The reamer was used down to a bleeding bony surface. The central peg hole was drilled. The standard baseplate was inserted with good purchase. Inferior, superior, and posterior locking screws the appropriate length were placed. Good purchase was obtained. The 38 mm glenosphere was inserted over a guidewire. This was fully seated. Care was taken to avoid any soft tissue interposition. Attention was then paid towards preparing the proximal humerus. The appropriate broach was placed and 20 of retroversion and was fully seated. An eccentric size 2 epiphyseal reamer was utilized. A size 14 stem with a size 2 epiphysis was placed and 20 of retroversion. Trial reduction was obtained with a 38 mm +9 articular surface. The shoulder was taken through range of motion. He was felt to be stable in flexion and extension with internal and external rotation. I felt there was adequate mu-ism of soft tissue tension judging off the conjoined tendon. The shoulder was gently dislocated. The trial components were then removed. The final size 14 press-fit stem along with a size 2 epiphysis was fully seated. There was good rotational stability. The 38 mm + 9 articular surface was impacted. The shoulder again was gently reduced and taken through range of motion. Again it was felt to be stable in all planes. Pulsatile lavage was utilized. The subscapularis was a attached to the lesser tuberosity with #2 Ethibond suture. The deltopectoral interval was closed with interrupted 2-0 Vicryl sutures. The skin was reapproximated with 3-0 subcuticular Prolene suture. Steri-Strips were applied. A sterile dressing was applied. A sling was placed. The patient was awoken from general anesthesia and transferred to recovery room in good condition. Blood loss was estimated at 200 mL. No complications were incurred. Sponge and needle counts were correct at the end the case. Aditya BARCENAS assisted during the major components of the case to include exposure, glenoid and humeral preparation, implantation, and closure.
[2020-06-05] MEDS ORDERED: HYDROmorphone 0.5 MG/0.5 ML SYRINGE IVP ONE ×2 (09:25→09:28)
[2020-06-05 10:04] LABS: Glucose,Whole Blood 214 mg/dL (75-99)
[2020-06-05] MEDS ORDERED: INSULIN ASPART (NovoLOG) 100 UNIT/ML VIAL SQ ONE (10:31)
--- NOTE | 2020-06-05 11:03 | P.ANPRN ---
Procedure Note - Anesthesia - Nerve Block Performed Right Interscalene Single Time Out Performed: Yes Date of Procedure: 06/05/20 Procedure Start Time: :34 Procedure Stop Time: 09:37 Location of Patient: PreOp Indication: Acute Post-Operative Pain, Requested by Surgeon Sedation Type: Sedate with meaningful contact maintained Preparation: Sterile Prep Position: Supine Needle Types: [place]ajunk Needle Gauge: 21 Ultrasound used to visualize needle placement: Yes Ultrasound used to observe medication spread: Yes Blood Aspirated: No Pain Paresthesia on Injection Noted: No Resistance on Injection: Normal Image Stored and Saved: Yes Events: Uneventful and Well Tolerated (ropi .5% 20cc plus dexamethasone 4mg)
--- NOTE | 2020-06-05 13:00 | XR ---
Limited right shoulder HISTORY: Status post right shoulder arthroplasty Single frontal view of the right shoulder Patient is status post reverse right shoulder arthroplasty. There is lucency in the soft tissues. The re is anatomic alignment. IMPRESSION: Orthopedic follow-up.
[2020-06-05 13:20] LABS: Glucose,Whole Blood 168 mg/dL (75-99)
--- NOTE | 2020-06-05 14:35 | XR ---
EXAMINATION TYPE: XR chest 1V portable DATE OF EXAM: 06/05/2020 COMPARISON: Chest x-ray 04/06/2018, CT 04/17/2019 HISTORY: Shortness of breath TECHNIQUE: Single frontal view of the chest is obtained on 2 images. FINDINGS: There is no focal air space opacity, pleural effusion, or pneumothorax seen. The cardiac silhouette size is within normal limits. Right hemidiaphragm remains elevated. Postop change noted t o the right shoulder, there are overlying leads. Lung volumes are low. Questionable abnormal density at the left costophrenic angle, patient with known prominent epicardial fat pad. The osseous structur es are intact. IMPRESSION: No acute process.
[2020-06-05] MEDS: traMADol 50 MG TAB PO SCH ×3 (14:42→20:50)
[2020-06-05] MEDS ORDERED: ALBUTEROL HFA INHALER INHALATION PRN (15:51)
[2020-06-05] MEDS: atenoloL 50 MG TAB PO SCH (16:24)
--- NOTE | 2020-06-05 16:31 | P.CONS ---
History of Present Illness - Reason for Consult Consult date: 06/05/20 (delayed charting seen at 1340) right shoulder pain Requesting physician: Elijah Olmedo - Chief Complaint right shoulder pain - History of Present Illness Patient is a 70 yo CM with a hx of DM2 on oral medications and well controlled, HTN, CAD, HLD, and arthritis who presented for elective right total shoulder arthroplasty. Patient arrived to unit and was noted to have HR of 133. Patient seen and examined at bedside. He denies chest pain, palpitations, shortness of breath, light headedness, dizziness, or nausea. He denies any pain currently. No hx of arrhythmia. He does have a hx of CAD with stent in the past. He had a nuclear stress test prior to surgery which he reports as normal. He did not take his atenolol this morning. No other complaints currently. Review of Systems Pertinent positives and negatives as discussed in HPI, a complete review of systems was performed and all other systems are negative. Past Medical History Past Medical History: Asthma, Coronary Artery Disease (CAD), Cancer, Diabetes Mellitus, GERD/Reflux, Hyperlipidemia, Hypertension, Skin Disorder Additional Past Medical History / Comment(s): IBS, hx. kidney cancer 2013, hx. colon polyps, lipodystrophy,roscea History of Any Multi-Drug Resistant Organisms: None Reported Past Surgical History: Heart Catheterization With Stent Additional Past Surgical History / Comment(s): left nephrectomy, colonoscopy Past Anesthesia/Blood Transfusion Reactions: No Reported Reaction Additional Past Anesthesia/Blood Transfusion Reaction / Comm: no hx blood transfusion Date of Last Stent Placement:: 11/26/18 Past Psychological History: No Psychological Hx Reported Smoking Status: Never smoker Past Alcohol Use History: Rare Past Drug Use History: None Reported Additional History: No assistive devices - Past Family History Father Family Medical History: Cancer Additional Family Medical History / Comment(s): Colon cancer. Mother Family Medical History: Cancer Additional Family Medical History / Comment(s): Cervical cancer. Medications and Allergies Home Medications Medication Instructions Recorded Confirmed Type Acetaminophen [Tylenol Arthritis] 1,300 mg PO BID 11/30/17 06/05/20 History Albuterol Inhaler (Mhu) [Ventolin 1 - 2 puff INHALATION RT-Q6H PRN 11/30/17 06/05/20 History Hfa Inhaler] Ascorbic Acid [Vitamin C] 500 mg PO DAILY 11/30/17 06/05/20 History Aspirin 81 mg PO DAILY 11/30/17 06/05/20 History Cholecalciferol [Vitamin D3] 5,000 unit PO DAILY 11/30/17 06/05/20 History Cyanocobalamin (Vitamin B-12) 2,500 mcg PO DAILY 11/30/17 06/05/20 History [Vitamin B-12] Dicyclomine [Bentyl] 20 mg PO BID 11/30/17 06/05/20 History Gabapentin [Neurontin] 100 mg PO BID 11/30/17 06/05/20 History atenoloL [Tenormin] 50 mg PO QAM 11/30/17 06/05/20 History Diphenox-Atrop 2.5-0.025 mg 2 tab PO BID PRN 11/24/18 06/05/20 History [Lomotil] Nitroglycerin Sl Tabs [Nitrostat] 0.4 mg SUBLINGUAL Q5M PRN 11/24/18 06/05/20 History Pravastatin Sodium [Pravachol] 80 mg PO HS #90 tab 11/27/18 06/05/20 Rx Hydrocortisone Cream 1 applic TOPICAL BID PRN 04/18/19 06/05/20 History [Hydrocortisone 2.5% Cream] metFORMIN HCL [metFORMIN HCL ER] 1,000 mg PO BID 04/18/19 06/05/20 History traMADol HCL [Ultram] 50 mg PO BID PRN 04/18/19 06/05/20 History Fiber Supplement 1 dose PO DAILY 05/25/20 06/05/20 History sitaGLIPtin PHOSPHATE [Januvia] 100 mg PO DAILY 05/25/20 06/05/20 History Allergies Allergy/AdvReac Type Severity Reaction Status Date / Time No Known Allergies Allergy Verified 05/25/20 14:56 Physical Exam Osteopathic Statement: *. No significant issues noted on an osteopathic structural exam other than those noted in the History and Physical/Consult. Vitals: Vital Signs Temp Pulse Pulse Resp BP BP Pulse Ox 06/05/20 14:00 98.9 F 122 H 18 117/75 93 L 06/05/20 13:43 98.1 F 129 H 16 144/91 92 L 06/05/20 13:00 113 H 16 142/76 95 06/05/20 12:30 114 H 18 145/77 99 06/05/20 12:00 111 H 16 151/73 94 L 06/05/20 11:30 90 16 135/68 94 L 06/05/20 11:00 96 16 135/63 100 06/05/20 10:30 88 16 130/66 100 06/05/20 09:50 79 16 143/63 97 06/05/20 09:34 104 H 18 151/91 97 06/05/20 09:20 103 H 16 151/87 96 06/05/20 09:05 97.8 F 106 H 16 130/71 96 06/05/20 06:26 97 F L 104 H 16 159/87 94 L Intake and Output 06/05/20 06/05/20 06/05/20 06:59 14:59 22:59 Intake Total 200 1851 Output Total 200 Balance 200 1651 Intake: IV 200 1851 Output: Estimated Blood Loss 200 Other: Weight 102.8 kg 102.8 kg General: non toxic, no distress, appears at stated age Derm: warm, dry Head: atraumatic, normocephalic, symmetric Eyes: lack of adduction of right eye to might line with abduction at rest, no lid lag, anicteric sclera ENT: Nose and ears atraumatic, no thrush, no pharyngeal erythema Neck: No thyromegaly, no cervical lymphadenopathy, trachea midline, supple Mouth: no lip lesion, mucus membranes moist Cardiovascular: S1S2 tachy, no murmur, positive posterior tibial pulse bilateral, no edema, capillary refill less than 2 seconds Lungs: Decreased bs bilateral, no ronchi, no rales, no wheeze, no accessory muscle use Abdominal: soft, nontender to palpation, no guarding, no appreciable organomegaly, normal bowel sounds Ext: no gross muscle atrophy, muscle strength muscle strength 5 out of 5 in LUE and bilateral lower extremities, no contractures, Right should with dressing in place and sling in place. Neuro: CN II-XI grossly intact, light touch intact all 4 extremities, finger to nose within normal limit on left Psych: Alert, oriented, appropriate affect Results Labs: Abnormal Lab Results - Last 24 Hours (Table) 06/05/20 06/05/20 06/05/20 Range/Units 06:17 10:02 13:19 POC Glucose (mg/dL) 181 H 214 H 168 H (75-99) mg/dL Assessment and Plan Assessment: 70 yo M admitted for right totoal should arthroplasty. Tachycardia, asymptomatic - stat CXR without acute process - Stat troponin negative - EKG pending - Tele - Start atenolol DM 2 - hold orals - SSI - Last A1C 7.2 04/18/19 - follow BS HTN - resume atenolol - follow BP Right chronic rotator cuff repair with arthroplasty - pain contol - ortho recs - s/p nerve block Chronic: IBS GERD HLD CAD Asthma without exacerbation DVT prophylaxis: SCD Discussed with: patient, nursing Anticipated discharge: in AM Anticipated discharge place: home A total of 35 minutes was spent on the care of this complex patient more than 50% of the time was spent in counseling and care coordination.
[2020-06-05 16:50] LABS: Glucose,Whole Blood 173 mg/dL (75-99)
[2020-06-05] MEDS: INSULIN ASPART (NovoLOG) 100 UNIT/ML VIAL SQ SCH ×2 (17:19→20:58)
[2020-06-05 20:45] LABS: Glucose,Whole Blood 172 mg/dL (75-99)
[2020-06-05] MEDS: GABAPENTIN 100 MG CAP PO SCH (20:50)
[2020-06-05] MEDS: DICYCLOMINE 20 MG TAB PO SCH (20:50)
[2020-06-05] MEDS ORDERED: PRAVASTATIN SODIUM 80 MG TAB PO SCH (21:00)
[2020-06-06] MEDS: HYDROmorphone 0.5 MG/0.5 ML SYRINGE IVP PRN ×2 (02:50→10:15)
[2020-06-06] MEDS: HYDROcodone/APAP 5-325MG 1 EACH TAB PO PRN ×2 (04:31→12:20)
[2020-06-06 06:46] LABS: Glucose,Whole Blood 143 mg/dL (75-99)
[2020-06-06 06:52] LABS: Basophils % (A) 0 %; Eosinophils % (A) 0 %; HCT 39.2 % (39.0-53.0); HGB 13.8 gm/dL (13.0-17.5); Lymphocytes # (A) 2.1 k/uL (1.0-4.8); Lymphocytes % (A) 21 %; MCH 32.6 pg (25.0-35.0); MCHC 35.2 g/dL (31.0-37.0); MCV 92.7 fL (80.0-100.0); Mean Platelet Volume 7.8; Monocytes # (A) 0.7 k/uL (0-1.0); Monocytes % (A) 7 %; Neutrophils # (A) 7.1 k/uL (1.3-7.7); Neutrophils % (A) 70 %; Platelet Count 115 k/uL (150-450); RBC 4.22 m/uL (4.30-5.90); RDW 12.6 % (11.5-15.5); WBC 10.2 k/uL (3.8-10.6)
[2020-06-06] MEDS: LACTATED RINGERS 1,000 ML IV SCH (07:04)
[2020-06-06 07:37] VITALS: BP 142/89; PULSE 96; RESP 20; TEMP 97.9
[2020-06-06] MEDS: DICYCLOMINE 20 MG TAB PO SCH (07:59)
[2020-06-06] MEDS: atenoloL 50 MG TAB PO SCH (07:59)
[2020-06-06] MEDS: GABAPENTIN 100 MG CAP PO SCH (07:59)
[2020-06-06] MEDS: INSULIN ASPART (NovoLOG) 100 UNIT/ML VIAL SQ SCH ×2 (07:59→12:21)
[2020-06-06] MEDS: traMADol 50 MG TAB PO SCH (08:00)
[2020-06-06] MEDS ORDERED: ASCORBIC ACID 500 MG TAB PO SCH (09:00)
[2020-06-06] MEDS ORDERED: CHOLECALCIFEROL 25 MCG (1000 IU) TABLET PO SCH (09:00)
[2020-06-06] MEDS ORDERED: CYANOCOBALAMIN 500 MCG TAB PO SCH (09:00)
[2020-06-06] MEDS ORDERED: LINAGLIPTIN 5 MG TABLET PO SCH (09:00)
[2020-06-06] MEDS ORDERED: ASPIRIN 325 MG TAB PO SCH (09:00)
[2020-06-06] MEDS ORDERED: FIBER SUPPLEMENT PO SCH (09:00)
--- NOTE | 2020-06-06 10:37 | P.PN ---
Subjective Progress Note Date: 06/06/20 Principal diagnosis: shoulder pain Patient is a 70 yo CM with a hx of DM2 on oral medications and well controlled, HTN, CAD, HLD, and arthritis who presented for elective right total shoulder arthroplasty. Post op he had some tachycardia. EKG showed sinus tach with PVCs, trop negative, CXR without acute process, Tele placed. On the morning of 06/06 his HR improved to 94. Patient seen and examined at bedside. He complains of pain i his right should. It worsened throughout the evening. [place] was not effective and tramadol helped take the edge off but did not remove the pain. He denies chest pain, shortness of breath, nausea or vomiting. General: non toxic, mild distress due to pain, appears at stated age Derm: warm, dry, dressing in place on right shoulder Head: atraumatic, normocephalic, symmetric Eyes: EOMI, no lid lag, anicteric sclera Mouth: no lip lesion, mucus membranes moist Cardiovascular: S1S2 reg, no murmur, positive posterior tibial pulse bilateral, Lungs: CTA bilateral, no rhonchi, no rales , no accessory muscle use Abdominal: soft, nontender to palpation, no guarding, no appreciable organomegaly Ext: no gross muscle atrophy, no edema, no contractures Neuro: CN II-XI grossly intact, no focal neuro deficits Psych: Alert, oriented, appropriate affect Tachycardia, asymptomatic, improved - stop tele DM 2 - hold orals - SSI - Last A1C 6.9 at [facility] office last month - follow BS HTN - atenolol - follow BP Right chronic rotator cuff repair with arthroplasty - pain contol - ortho recs - s/p nerve block - d/w SWAPNA Nascimento Chronic: IBS GERD HLD4 CAD Asthma without exacerbation Medically optimized for discharge at the discretion of ortho. Med rec addressed. Thank you for allowing us to participate in the care of this patient. Objective - Vital Signs Vital signs: Vital Signs Temp 97.9 F 06/06/20 07:36 Pulse 96 06/06/20 07:36 Resp 20 06/06/20 07:36 BP 142/89 06/06/20 07:36 Pulse Ox 93 L 06/06/20 07:36 Intake & Output 06/05/20 06/06/20 06/06/20 18:59 06:59 18:59 Intake Total 1931 Output Total 200 Balance 1731 Weight 102.8 kg Intake: IV 1930 Lactated Ringers 1,000 ml 80 @ 20 mls/hr IV .Q24H [facility] Rx#:[id number] Output: Estimated Blood Loss 200 Other: Voiding Method Toilet Toilet # Voids 2 - Labs CBC & Chem 7: 06/06/20 05:59 Labs: Abnormal Lab Results - Last 24 Hours (Table) 06/05/20 06/05/20 06/05/20 Range/Units 13:19 16:47 20:38 RBC (4.30-5.90) m/uL Plt Count (150-450) k/uL POC Glucose (mg/dL) 168 H 173 H 172 H (75-99) mg/dL 06/06/20 06/06/20 Range/Units 05:59 06:44 RBC 4.22 L (4.30-5.90) m/uL Plt Count 115 L (150-450) k/uL POC Glucose (mg/dL) 143 H (75-99) mg/dL
[2020-06-06 11:36] LABS: Glucose,Whole Blood 179 mg/dL (75-99)
--- NOTE | 2020-06-06 11:54 | P.PN ---
Subjective Progress Note Date: 06/06/20 Principal diagnosis: status post reverse right total shoulder arthroplasty patient evaluated at bedside, he is resting in his hospital chair. Patient has noted some increasing pain after the nerve block has worn off. He denies any headaches, lightheadedness, chest pain, shortness of breath, nausea vomiting, fever or chills. Objective - Vital Signs Vital signs: Vital Signs Temp 97.9 F 06/06/20 07:36 Pulse 96 06/06/20 07:36 Resp 20 06/06/20 07:36 BP 142/89 06/06/20 07:36 Pulse Ox 93 L 06/06/20 07:36 Intake & Output 06/05/20 06/06/20 06/06/20 18:59 06:59 18:59 Intake Total 1931 Output Total 200 Balance 1731 Weight 102.8 kg Intake: IV 1930 Lactated Ringers 1,000 ml 80 @ 20 mls/hr IV .Q24H [facility] Rx#:[id number] Output: Estimated Blood Loss 200 Other: Voiding Method Toilet Toilet # Voids 2 - Exam Right upper extremity: Postoperative bandages removed bedside, the incision is clean, dry and intact. Mild ecchymosis and soft tissue swelling present in the upper arm. Compartments remain soft. Flexion and extension are intact at the elbow, hand and wrist. Sensory exam to light touch throughout the extremity is intact. Radial and ulnar pulses are 2+. - Labs CBC & Chem 7: 06/06/20 05:59 Labs: Abnormal Lab Results - Last 24 Hours (Table) 06/05/20 06/05/20 06/05/20 Range/Units 13:19 16:47 20:38 RBC (4.30-5.90) m/uL Plt Count (150-450) k/uL POC Glucose (mg/dL) 168 H 173 H 172 H (75-99) mg/dL 06/06/20 06/06/20 06/06/20 Range/Units 05:59 06:44 11:34 RBC 4.22 L (4.30-5.90) m/uL Plt Count 115 L (150-450) k/uL POC Glucose (mg/dL) 143 H 179 H (75-99) mg/dL Assessment and Plan Assessment: postoperative day #1 status post reverse right total shoulder arthroplasty Plan: Pain control, patient takes tramadol 50 mg at home. The [place] 5 did not seem to help his pain very much. We discussed the possibility of increasing the tramadol 100 mg, we also discussed the use of utilizing Percocet for a short period of time home. C5 utilize Percocet 5 mg/325 mg 1 tab every 6 hours for discharge. He also can utilize tramadol 50 mg in between. DVT prophylaxis, aspirin 325 mg daily Wound care and activity level instructions were discussed Medical recommendations Plan for discharge home today Time with Patient: Less than 30
--- NOTE | 2020-06-06 11:59 | P.DS ---
Providers Date of admission: 06/05/20 05:44 Expected date of discharge: 06/06/20 Attending physician: Elijah Olmedo Consults: 06/05/20 08:41 Consult Physician Routine Consulting Provider: Carrie Smith Consult Reason/Comments: medical management Do you want consulting provider notified?: Yes Primary care physician: Stated None Hospital Course: Date of admission: 06/05/2020 Date of discharge: 06/06/2020 Admission diagnosis: Status post reverse right total shoulder arthroplasty Discharge diagnosis: Same Attending physician: Dr. Olmedo Surgical procedures: Reverse right total shoulder arthroplasty Brief history: Patient is a [id number] male with a history of a large chronic retracted rotator cuff tear with rotator cuff arthropathy. At this point patient has failed conservative treatment measures and has opted to proceed with a elective reverse right total shoulder arthroplasty Hospital course: Details of patient's surgery can be found in operative report. Patient tolerated the procedure well and was subsequently transported to orthopedic floor. Patient's orthopeidc and medical care was provided daily. Patient had daily laboratory tests performed for evaluation of overall blood counts. Patient had daily physical therapy to include strengthening range of motion as well as education with walker ambulation. Patient was treated with aspirin for their postoperative DVT prophylaxis during their inpatient stay. Patient was noted to have a relatively uneventful postoperative course. Patient reported satisfactory pain control with oral pain medications by postoperative day 0. Patient showed satisfactory progress with physical therapy. Patient moved steadily through the program and had no difficulty meeting the goals by postoperative day 1. Given patient's otherwise satisfactory course and having met physical therapy goals, plan is to discharge patient home on postoperative day 1. Discharge condition/disposition: Patient will be discharged home in stable condition. Discharge medications: Instructions are given on resumption of patient's normal daily medications per primary care recommendation, in addition patient will be prescribed Percocet 5 mg/325 mg, aspirin 325 mg. Discharge instructions: 1. Wound care and infection precautions, keep incision dry and covered while showering, no lotions, creams, moisturizers. No soaking, tubs, pools, hottubs. Do not scrub over the incision. 2. Utilize arm sling 3. Ice and elevate when necessary. Do not exceed 20 minutes per hour with ice pack. 4. Utilize compression sleeve until seen at first follow up appointment. 5. Visiting nursing care. 7. Pain meds and anticoagulants per prescription. 8. Pain medication has potential to cause constipation. Increase oral fluid and fiber intake. Contact primary care provider if you have not had a bowel movement within 48 hours after discharge 9. No anti-inflammatory medication until discussed at first post operative visit, this including Motrin, Aleve, Mobic, Diclofenac 10. Follow up in office at 2 weeks postop with Aditya Stewart PA-C 11. Follow up with your primary care doctor 7-10 days after discharge. 12. Contact [facility] with any questions, . Procedures: Reverse right total shoulder arthroplasty Patient Condition at Discharge: Good Plan - Discharge Summary Discharge Rx Participant: No New Discharge Prescriptions: New Aspirin 325 mg PO DAILY #30 tab oxyCODONE HCL/ACETAMINOPHEN [Percocet 5-325 mg] 1 tab PO Q6HR PRN 3 Days #28 tab PRN Reason: Pain Continue Albuterol Inhaler (Mhu) [Ventolin Hfa Inhaler (Mhu)] 1 - 2 puff INHALATION RT-Q6H PRN PRN Reason: Dyspnea Gabapentin [Neurontin] 100 mg PO BID Dicyclomine [Bentyl] 20 mg PO BID atenoloL [Tenormin] 50 mg PO QAM Cholecalciferol [Vitamin D3 (25 Mcg = 1000 Iu)] 5,000 unit PO DAILY Ascorbic Acid [Vitamin C] 500 mg PO DAILY Cyanocobalamin (Vitamin B-12) [Vitamin B-12] 2,500 mcg PO DAILY Diphenox-Atrop 2.5-0.025 mg [Lomotil] 2 tab PO BID PRN PRN Reason: loose stools Nitroglycerin Sl Tabs [Nitrostat] 0.4 mg SUBLINGUAL Q5M PRN PRN Reason: Chest Pain Pravastatin Sodium [Pravachol] 80 mg PO HS #90 tab Hydrocortisone Cream [Hydrocortisone 2.5% Cream] 1 applic TOPICAL BID PRN PRN Reason: [place] metFORMIN HCL [metFORMIN HCL ER] 1,000 mg PO BID sitaGLIPtin PHOSPHATE [Januvia] 100 mg PO DAILY Fiber Supplement 1 dose PO DAILY Discontinued Aspirin 81 mg PO DAILY No Action Acetaminophen [Tylenol Arthritis] 1,300 mg PO BID traMADol HCL [Ultram] 50 mg PO BID PRN PRN Reason: Pain Discharge Medication List Acetaminophen [Tylenol Arthritis] 1,300 mg PO BID 11/30/17 [History] Albuterol Inhaler (Mhu) [Ventolin Hfa Inhaler (Mhu)] 1 - 2 puff INHALATION RT- Q6H PRN 11/30/17 [History] Ascorbic Acid [Vitamin C] 500 mg PO DAILY 11/30/17 [History] Cholecalciferol [Vitamin D3 (25 Mcg = 1000 Iu)] 5,000 unit PO DAILY 11/30/17 [History] Cyanocobalamin (Vitamin B-12) [Vitamin B-12] 2,500 mcg PO DAILY 11/30/17 [History] Dicyclomine [Bentyl] 20 mg PO BID 11/30/17 [History] Gabapentin [Neurontin] 100 mg PO BID 11/30/17 [History] atenoloL [Tenormin] 50 mg PO QAM 11/30/17 [History] Diphenox-Atrop 2.5-0.025 mg [Lomotil] 2 tab PO BID PRN 11/24/18 [History] Nitroglycerin Sl Tabs [Nitrostat] 0.4 mg SUBLINGUAL Q5M PRN 11/24/18 [History] Pravastatin Sodium [Pravachol] 80 mg PO HS #90 tab 11/27/18 [Rx] Hydrocortisone Cream [Hydrocortisone 2.5% Cream] 1 applic TOPICAL BID PRN 04/18/19 [History] metFORMIN HCL [metFORMIN HCL ER] 1,000 mg PO BID 04/18/19 [History] traMADol HCL [Ultram] 50 mg PO BID PRN 04/18/19 [History] Fiber Supplement 1 dose PO DAILY 05/25/20 [History] sitaGLIPtin PHOSPHATE [Januvia] 100 mg PO DAILY 05/25/20 [History] Aspirin 325 mg PO DAILY #30 tab 06/06/20 [Rx] oxyCODONE HCL/ACETAMINOPHEN [Percocet 5-325 mg] 1 tab PO Q6HR PRN 3 Days #28 tab 06/06/20 [Rx] Follow up Appointment(s)/Referral(s): Thomas Stewart PAC [[employer]] - 2 Weeks Luis Fernando Dupree MD [REFERRING] - 1 Week Patient Instructions/Handouts: Shoulder Arthroplasty (DC) Activity/Diet/Wound Care/Special Instructions: Orthopedic Discharge Instructions: 1. Wound care and infection precautions, [keep incision dry and covered while showering], no lotions, creams, moisturizers. No soaking, pools, hot tubs. Do not scrub over incision. 2. Utilize arm sling 3. Ice and elevate when necessary. Do not exceed 20 minutes per hour with ice pack. 4. Utilize compression sleeve until seen at first follow up appointment. 5. Pain meds and anticoagulants per prescription. 6. Pain medication has potential to cause constipation. Increase oral fluid and fiber intake. Contact primary care provider if you have not had a bowel movement within 48 hours after discharge. 7. No anti-inflammatory medication until discussed at first post operative visit, this including Motrin, Aleve, Mobic, Diclofenac 8. Follow up in office at 2 weeks postop with Aditya Stewart PA-C 9. Follow up with your primary care doctor 7-10 days after discharge. 10. Contact [facility] with any questions, . Discharge Disposition: HOME WITH HOME HEALTH SERVICES
== END 2020-06-06 14:12 | disposition home or self-care (01) | DRG 483 ==
LOC: 2ORMAIN 05:44 → 4SSUR 13:04
PROVIDERS: ADMIT Orthopaedic Surgery; ATTEND Orthopaedic Surgery
PROC: 0RRJ00Z Replacement of Right Shoulder Joint with Reverse Ball and Socket Synthetic Substitute, Open Approach (ICD-10-PCS; principal; 2020-06-05 07:00)
DX: M19.011 Primary osteoarthritis, right shoulder (principal); E11.9 Type 2 diabetes mellitus without complications; M75.101 Unspecified rotator cuff tear or rupture of right shoulder, not specified as traumatic; I10 Essential (primary) hypertension; J45.909 Unspecified asthma, uncomplicated; I25.10 Atherosclerotic heart disease of native coronary artery without angina pectoris; E78.5 Hyperlipidemia, unspecified; K21.9 Gastro-esophageal reflux disease without esophagitis; K58.9 Irritable bowel syndrome, unspecified; R00.0 Tachycardia, unspecified; E88.1 Lipodystrophy, not elsewhere classified; Z79.82 Long term (current) use of aspirin; Z79.84 Long term (current) use of oral hypoglycemic drugs; Z79.899 Other long term (current) drug therapy; Z90.5 Acquired absence of kidney; Z85.528 Personal history of other malignant neoplasm of kidney; Z95.5 Presence of coronary angioplasty implant and graft; Z86.010 Personal history of colon polyps; Z80.0 Family history of malignant neoplasm of digestive organs; Z83.3 Family history of diabetes mellitus
CPT/HCPCS: 64415; 71045; 76942; 84484; 85025; 88300; 93005

== ENCOUNTER 2020-07-09 16:10 | Inpatient (IN) | payer MEDICARE ==
[2020-07-09] MEDS ORDERED: SODIUM CHLORIDE 0.9% 1,000 ML IV STA (16:39)
--- NOTE | 2020-07-09 16:56 | ED ---
Male Urogenital HPI - General Chief complaint: Urogenital Stated complaint: Trouble Urinating Time Seen by Provider: 07/09/20 16:31 Source: patient, RN notes reviewed Mode of arrival: ambulatory Limitations: no limitations - History of Present Illness Initial comments: This a 70-year-old male presents emergency Department chief complaint of unable to urinate. Patient states that he was seen by Dr. Ruelas urologist today in which he was told he had a kidney stone within the kidney were not sure if it was obstructing her not was told to increase his fluid intake go home if he is unable to urinate this afternoon history presents emergency department. Patient states that he's had a prior left nephrectomy. Patient states he had renal cancer. Patient states that he has had multiple kidney stones in the past. Patient states he has no sensation to urinate. Patient states he is drinking multiple bottles of water with no success of urinating. Denies any significant abdominal pain or flank pain at this time but states he has been having right flank pain. - Related Data Home Medications Medication Instructions Recorded Confirmed Acetaminophen [Tylenol Arthritis] 1,300 mg PO BID 11/30/17 06/05/20 Albuterol Inhaler (Mhu) [Ventolin 1 - 2 puff INHALATION RT-Q6H PRN 11/30/17 06/05/20 Hfa Inhaler (Mhu)] Ascorbic Acid [Vitamin C] 500 mg PO DAILY 11/30/17 06/05/20 Cholecalciferol [Vitamin D3 (25 5,000 unit PO DAILY 11/30/17 06/05/20 Mcg = 1000 Iu)] Cyanocobalamin (Vitamin B-12) 2,500 mcg PO DAILY 11/30/17 06/05/20 [Vitamin B-12] Dicyclomine [Bentyl] 20 mg PO BID 11/30/17 06/05/20 Gabapentin [Neurontin] 100 mg PO BID 11/30/17 06/05/20 atenoloL [Tenormin] 50 mg PO QAM 11/30/17 06/05/20 Diphenox-Atrop 2.5-0.025 mg 2 tab PO BID PRN 11/24/18 06/05/20 [Lomotil] Nitroglycerin Sl Tabs [Nitrostat] 0.4 mg SUBLINGUAL Q5M PRN 11/24/18 06/05/20 Hydrocortisone Cream 1 applic TOPICAL BID PRN 04/18/19 06/05/20 [Hydrocortisone 2.5% Cream] metFORMIN HCL [metFORMIN HCL ER] 1,000 mg PO BID 04/18/19 06/05/20 traMADol HCL [Ultram] 50 mg PO BID PRN 04/18/19 06/05/20 Fiber Supplement 1 dose PO DAILY 05/25/20 06/05/20 sitaGLIPtin PHOSPHATE [Januvia] 100 mg PO DAILY 05/25/20 06/05/20 Previous Rx's Medication Instructions Recorded Pravastatin Sodium [Pravachol] 80 mg PO HS #90 tab 11/27/18 Aspirin 325 mg PO DAILY #30 tab 06/06/20 oxyCODONE HCL/ACETAMINOPHEN 1 tab PO Q6HR PRN 3 Days #28 tab 06/06/20 [Percocet 5-325 mg] Allergies Allergy/AdvReac Type Severity Reaction Status Date / Time No Known Allergies Allergy Verified 07/09/20 16:25 Review of Systems ROS Statement: Those systems with pertinent positive or pertinent negative responses have been documented in the HPI. ROS Other: All systems not noted in ROS Statement are negative. Past Medical History Past Medical History: Asthma, Coronary Artery Disease (CAD), Cancer, Diabetes Mellitus, GERD/Reflux, Hyperlipidemia, Hypertension, Skin Disorder Additional Past Medical History / Comment(s): IBS, hx. kidney cancer 2013, hx. colon polyps, lipodystrophy,roscea History of Any Multi-Drug Resistant Organisms: None Reported Past Surgical History: Heart Catheterization With Stent Additional Past Surgical History / Comment(s): left nephrectomy, colonoscopy, RIGHT SHOULDER replacement 06/05/20 Past Anesthesia/Blood Transfusion Reactions: No Reported Reaction Additional Past Anesthesia/Blood Transfusion Reaction / Comment(s): no hx blood transfusion Date of Last Stent Placement:: 11/26/18 Past Psychological History: No Psychological Hx Reported Smoking Status: Never smoker Past Alcohol Use History: None Reported Past Drug Use History: None Reported - Past Family History Father Family Medical History: Cancer Additional Family Medical History / Comment(s): Colon cancer. Mother Family Medical History: Cancer Additional Family Medical History / Comment(s): Cervical cancer. General Exam Limitations: no limitations General appearance: alert, in no apparent distress Head exam: Present: atraumatic, normocephalic, normal inspection Eye exam: Present: normal appearance, PERRL, EOMI. Absent: scleral icterus, conjunctival injection, periorbital swelling Neck exam: Present: normal inspection. Absent: tenderness, meningismus, lymphadenopathy Respiratory exam: Present: normal lung sounds bilaterally. Absent: respiratory distress, wheezes, rales, rhonchi, stridor Cardiovascular Exam: Present: regular rate, normal rhythm, normal heart sounds. Absent: systolic murmur, diastolic murmur, rubs, gallop, clicks GI/Abdominal exam: Present: soft, normal bowel sounds. Absent: distended, tenderness, guarding, rebound, rigid Back exam: Absent: CVA tenderness (R), CVA tenderness (L) Neurological exam: Present: alert, oriented X3 Skin exam: Present: warm, dry, intact, normal color. Absent: rash Course Vital Signs 07/09/20 16:20 Temperature 98.7 F Pulse Rate 101 H Respiratory 18 Rate Blood Pressure 142/87 O2 Sat by Pulse 95 Oximetry Medical Decision Making - Medical Decision Making 70-year-old male presented for unable to urinate. Patient is found to have acute renal failure related to post renal structure and secondary to kidney stone. Case discussed with urologist in which the patient will be kept nothing by mouth and taken for stenting tonight. - Lab Data Result diagrams: 07/09/20 16:52 07/09/20 16:52 Lab Results 07/09/20 07/09/20 Range/Units 16:52 16:52 WBC 10.0 (3.8-10.6) k/uL RBC 4.60 (4.30-5.90) m/uL Hgb 14.4 (13.0-17.5) gm/dL Hct 42.1 (39.0-53.0) % MCV 91.5 (80.0-100.0) fL MCH 31.3 (25.0-35.0) pg MCHC 34.2 (31.0-37.0) g/dL RDW 12.3 (11.5-15.5) % Plt Count 120 L (150-450) k/uL MPV 7.5 Neutrophils % 70 % Lymphocytes % 21 % Monocytes % 7 % Eosinophils % 1 % Basophils % 0 % Neutrophils # 7.0 (1.3-7.7) k/uL Lymphocytes # 2.1 (1.0-4.8) k/uL Monocytes # 0.7 (0-1.0) k/uL Eosinophils # 0.1 (0-0.7) k/uL Basophils # 0.0 (0-0.2) k/uL Sodium 136 L (137-145) mmol/L Potassium 4.7 (3.5-5.1) mmol/L Chloride 99 (98-107) mmol/L Carbon Dioxide 20 L (22-30) mmol/L Anion Gap 17 mmol/L BUN 45 H (9-20) mg/dL Creatinine 5.85 H (0.66-1.25) mg/dL Est GFR (CKD-EPI)AfAm 11 (>60 ml/min/1.73 sqM) Est GFR (CKD-EPI)NonAf 9 (>60 ml/min/1.73 sqM) Glucose 122 H (74-99) mg/dL Calcium 9.6 (8.4-10.2) mg/dL Total Bilirubin 0.7 (0.2-1.3) mg/dL AST 16 L (17-59) U/L ALT 13 (4-49) U/L Alkaline Phosphatase 65 (38-126) U/L Total Protein 6.8 (6.3-8.2) g/dL Albumin 4.3 (3.5-5.0) g/dL Disposition Clinical Impression: Acute renal failure, Ureteral calculus, right Disposition: ADMITTED IP TO THIS HOSP Condition: Serious Referrals: Luis Fernando Dupree MD [Primary Care Provider] - 1-2 days
[2020-07-09 17:04] LABS: Basophils % (A) 0 %; Eosinophils # (A) 0.1 k/uL (0-0.7); Eosinophils % (A) 1 %; HCT 42.1 % (39.0-53.0); HGB 14.4 gm/dL (13.0-17.5); Lymphocytes # (A) 2.1 k/uL (1.0-4.8); Lymphocytes % (A) 21 %; MCH 31.3 pg (25.0-35.0); MCHC 34.2 g/dL (31.0-37.0); MCV 91.5 fL (80.0-100.0); Mean Platelet Volume 7.5; Monocytes # (A) 0.7 k/uL (0-1.0); Monocytes % (A) 7 %; Neutrophils % (A) 70 %; Platelet Count 120 k/uL (150-450); RDW 12.3 % (11.5-15.5)
[2020-07-09 17:13] LABS: Albumin 4.3 g/dL (3.5-5.0); Calcium 9.6 mg/dL (8.4-10.2); Potassium 4.7 mmol/L (3.5-5.1); Total Bilirubin 0.7 mg/dL (0.2-1.3); Total Protein 6.8 g/dL (6.3-8.2)
[2020-07-09] MEDS ORDERED: ONDANSETRON 4 MG/2 ML VIAL IVP PRN (18:02)
[2020-07-09] MEDS ORDERED: HYDROmorphone 0.5 MG/0.5 ML SYRINGE IVP PRN (18:02)
[2020-07-09] MEDS ORDERED: NALOXONE 0.4 MG/ML 1 ML VIAL IV PRN (18:02)
[2020-07-09] MEDS ORDERED: HYDROmorphone 1 MG/ML 1 ML SYRINGE IVP PRN (18:02)
--- NOTE | 2020-07-09 18:37 | CT ---
EXAMINATION TYPE: CT abdomen pelvis wo con DATE OF EXAM: 07/09/2020 COMPARISON: 04/17/2019. HISTORY: Right flank pain. CT DLP: 1234.4 mGycm Automated exposure control for dose reduction was used. TECHNIQUE: Helical acquisition of images was performed from the lung bases through the pelvis. FINDINGS: LUNG BASES: No significant abnormality is appreciated. LIVER/GB: No significant abnormality is appreciated. PANCREAS: No significant abnormality is seen. SPLEEN: No significant abnormality is seen. ADRENALS: No significant abnormality is seen. KIDNEYS: 2 adjacent obstructing right distal ureter calculi with the larger measuring 7 mm and smalle r 5 mm. Resultant moderate hydroureteronephrosis. Additional 2-3 nonobstructing right renal calculi, measuring up to 5 mm. Stable left nephrectomy. FREE AIR: No free air is visualized RETROPERITONEAL ADENOPATHY: None visualized REPRODUCTIVE ORGANS: No significant abnormality is seen URINARY BLADDER: No significant abnormality is seen. PELVIC ADENOPATHY: None visualized. OSSEOUS STRUCTURES: No significant abnormality is seen. BOWEL: No significant abnormality is seen. OTHER: None. IMPRESSION: 2 ADJACENT OBSTRUCTING RIGHT DISTAL URETER CALCULI MEASURING UP TO 7 MM. RESULTANT MODERATE HYDRONEPH ROSIS. ADDITIONAL NONOBSTRUCTING RIGHT RENAL CALCULI. LEFT NEPHRECTOMY.
[2020-07-09] MEDS ORDERED: LIDOCAINE 1% INJ 10MG/ML (20 ML MDV) ONE (19:50)
[2020-07-09] MEDS ORDERED: PROPOFOL 10 MG/ML 20 ML VIAL IV ONE (19:50)
[2020-07-09] MEDS ORDERED: ONDANSETRON 4 MG/2 ML VIAL ONE (19:50)
[2020-07-09] MEDS ORDERED: DEXAMETHASONE SOD PHOSPHATE 10 MG/ML 1 ML VIAL ONE (19:50)
[2020-07-09] MEDS ORDERED: SODIUM CHLORIDE 0.9% 1,000 ML IV ONE (19:50)
[2020-07-09] MEDS ORDERED: fentaNYL (PF) 50 MCG/ML 2 ML AMP ONE (19:50)
--- NOTE | 2020-07-09 19:52 | P.GSHP ---
History of Present Illness H&P Date: 07/09/20 Chief Complaint: Right ureteral stone Mr. Melissa is a 70-year-old male with history of solitary kidney. He initially presented to clinic the right flank pain which has resolved, he had a KUB at that time that showed a 2 mm distal stone. Of notehe was complaining of no uri ne output since this morning. Given this finding he was advised to go to the ED. In the emergency room he underwent a CT scan that demonstrated evidence of 1 cm right proximal stone. His creatinine was elevated at 5.8 from a baseline of 1.2. He has hx of recurrent stones. Denies any gross hematuria or dysuria. Discussed with him given his obstructive stone and acute kidney injury I recommend to proceed with the stent placement. Discussed with him the risk which includes bleeding, infection, injury to the ureter. Also discussed with him if unable to place a stent then we'll have to proceed with the nephrostomy tube - Constitutional Constitutional: Denies chills, Denies fever - Cardiovascular Cardiovascular: Reports as per HPI - Respiratory Respiratory: Denies cough, Denies 7 - Gastrointestinal Gastrointestinal: Reports abdominal pain, Reports nausea, Reports vomiting - Genitourinary (Female) Genitourinary: Reports flank pain, Denies dysuria, Denies hematuria - Genitourinary (Male) Genitourinary: Reports flank pain - Neurological Neurological: Denies numbness, Denies weakness Past Medical History Past Medical History: Asthma, Coronary Artery Disease (CAD), Cancer, Diabetes Mellitus, GERD/Reflux, Hyperlipidemia, Hypertension, Skin Disorder Additional Past Medical History / Comment(s): IBS, hx. kidney cancer 2013, hx. colon polyps, lipodystrophy,roscea History of Any Multi-Drug Resistant Organisms: None Reported Past Surgical History: Heart Catheterization With Stent Additional Past Surgical History / Comment(s): left nephrectomy, colonoscopy, RIGHT SHOULDER replacement 06/05/20 Past Anesthesia/Blood Transfusion Reactions: No Reported Reaction Additional Past Anesthesia/Blood Transfusion Reaction / Comment(s): no hx blood transfusion Date of Last Stent Placement:: 11/26/18 Past Psychological History: No Psychological Hx Reported Smoking Status: Never smoker Past Alcohol Use History: None Reported Past Drug Use History: None Reported - Past Family History Father Family Medical History: Cancer Additional Family Medical History / Comment(s): Colon cancer. Mother Family Medical History: Cancer Additional Family Medical History / Comment(s): Cervical cancer. Medications and Allergies Home Medications Medication Instructions Recorded Confirmed Type Acetaminophen [Tylenol Arthritis] 1,300 mg PO BID PRN 11/30/17 07/09/20 History Ascorbic Acid [Vitamin C] 500 mg PO DAILY 11/30/17 07/09/20 History Cholecalciferol [Vitamin D3 (25 125 mcg PO DAILY 11/30/17 07/09/20 History Mcg = 1000 Iu)] Dicyclomine [Bentyl] 20 mg PO BID 11/30/17 07/09/20 History Gabapentin [Neurontin] 100 mg PO TID PRN 11/30/17 07/09/20 History atenoloL [Tenormin] 50 mg PO DAILY 11/30/17 07/09/20 History Diphenox-Atrop 2.5-0.025 mg 2 tab PO BID PRN 11/24/18 07/09/20 History [Lomotil] Nitroglycerin Sl Tabs [Nitrostat] 0.4 mg SUBLINGUAL Q5M PRN 11/24/18 07/09/20 History Pravastatin Sodium [Pravachol] 80 mg PO HS #90 tab 11/27/18 07/09/20 Rx metFORMIN HCL [metFORMIN HCL ER] 1,000 mg PO BID 04/18/19 07/09/20 History traMADol HCL [Ultram] 50 mg PO BID PRN 04/18/19 07/09/20 History Albuterol Inhaler [Ventolin Hfa 1 - 2 puff INHALATION RT-Q6H PRN 07/09/20 07/09/20 History Inhaler] Aspirin EC [Ecotrin Low Dose] 81 mg PO DAILY 07/09/20 07/09/20 History Cyanocobalamin (Vitamin B-12) 2,500 mcg PO DAILY 07/09/20 07/09/20 History [Vitamin B-12] Famotidine [Pepcid] 20 mg PO DAILY 07/09/20 07/09/20 History Psyllium Husk [Metamucil] 0.4 gm PO DAILY 07/09/20 07/09/20 History Tamsulosin HCl [Flomax] 0.4 mg PO ONCE 07/09/20 07/09/20 History Allergies Allergy/AdvReac Type Severity Reaction Status Date / Time No Known Allergies Allergy Verified 07/09/20 19:12 Surgical - Exam Vital Signs Temp Pulse Resp BP Pulse Ox 98.7 F 101 H 18 142/87 95 07/09/20 16:20 07/09/20 16:20 07/09/20 16:20 07/09/20 16:20 07/09/20 16:20 - General well developed, well nourished, no distress, moderate pain - Eyes PERRL, normal ocular movement - ENT normal nares, normal mucosa - Respiratory normal expansion, normal respiratory effort - Abdomen Abdomen: soft, non tender - Integumentary no rash, no growths - Musculoskeletal normal gait, normal posture - Psychiatric oriented to time, oriented to person, oriented to place, speech is normal Results - Labs 07/09/20 16:52 07/09/20 16:52 Abnormal Lab Results - Last 24 Hours (Table) 07/09/20 07/09/20 Range/Units 16:52 16:52 Plt Count 120 L (150-450) k/uL Sodium 136 L (137-145) mmol/L Carbon Dioxide 20 L (22-30) mmol/L BUN 45 H (9-20) mg/dL Creatinine 5.85 H (0.66-1.25) mg/dL Glucose 122 H (74-99) mg/dL AST 16 L (17-59) U/L Diabetes panel 07/09/20 Range/Units 16:52 Sodium 136 L (137-145) mmol/L Potassium 4.7 (3.5-5.1) mmol/L Chloride 99 (98-107) mmol/L Carbon Dioxide 20 L (22-30) mmol/L BUN 45 H (9-20) mg/dL Creatinine 5.85 H (0.66-1.25) mg/dL Glucose 122 H (74-99) mg/dL Calcium 9.6 (8.4-10.2) mg/dL AST 16 L (17-59) U/L ALT 13 (4-49) U/L Alkaline Phosphatase 65 (38-126) U/L Total Protein 6.8 (6.3-8.2) g/dL Albumin 4.3 (3.5-5.0) g/dL Calcium panel 07/09/20 Range/Units 16:52 Calcium 9.6 (8.4-10.2) mg/dL Albumin 4.3 (3.5-5.0) g/dL Pituitary panel 07/09/20 Range/Units 16:52 Sodium 136 L (137-145) mmol/L Potassium 4.7 (3.5-5.1) mmol/L Chloride 99 (98-107) mmol/L Carbon Dioxide 20 L (22-30) mmol/L BUN 45 H (9-20) mg/dL Creatinine 5.85 H (0.66-1.25) mg/dL Glucose 122 H (74-99) mg/dL Calcium 9.6 (8.4-10.2) mg/dL Adrenal panel 07/09/20 Range/Units 16:52 Sodium 136 L (137-145) mmol/L Potassium 4.7 (3.5-5.1) mmol/L Chloride 99 (98-107) mmol/L Carbon Dioxide 20 L (22-30) mmol/L BUN 45 H (9-20) mg/dL Creatinine 5.85 H (0.66-1.25) mg/dL Glucose 122 H (74-99) mg/dL Calcium 9.6 (8.4-10.2) mg/dL Total Bilirubin 0.7 (0.2-1.3) mg/dL AST 16 L (17-59) U/L ALT 13 (4-49) U/L Alkaline Phosphatase 65 (38-126) U/L Total Protein 6.8 (6.3-8.2) g/dL Albumin 4.3 (3.5-5.0) g/dL Assessment and Plan Assessment: 62-year-old male with history of solitary kidney, presents with a 1 cm right proximal stone. History of recurrent kidney stones. On presentation his creatinine is 5.8 from a baseline of 1.1. He has no urine output today -OR for right ureteral stent placement -continue IVF -repeat labs in the am
[2020-07-09] MEDS ORDERED: SODIUM CHLORIDE 0.9% 50 ML with ceFAZolin 2,000 MG IV ONE ×2 (20:07)
[2020-07-09] MEDS ORDERED: IOPAMIDOL-370 50ML BTL IRRIGATION ONE (20:10)
--- NOTE | 2020-07-09 20:34 | P.OP ---
Date of Procedure: 07/09/20 Preoperative Diagnosis: right ureteral caculi Postoperative Diagnosis: same Procedure(s) Performed: Cystoscopy, right reterograde pyelgram, and ureteral stent placement Implants: 6 Fr X 26 cm stent placement Anesthesia: REINA Surgeon: Vu Ruelas Estimated Blood Loss (ml): 0 Pathology: none sent Condition: stable Disposition: PACU Indications for Procedure: Mr. Melissa is a 70-year-old male with history of solitary kidney. He presented to the emergency room he underwent a CT scan that demonstrated evidence of 1 cm right proximal stone, on review of CT showed possible 2 stones. His creatinine was elevated at 5.8 from a baseline of 1.2. He has hx of recurrent stones. . Discussed with him given his obstructive stone and acute kidney injury I recommend to proceed with the stent placement. Discussed with him the risk which includes bleeding, infection, injury to the ureter. Also discussed with him if unable to place a stent then we'll have to proceed with the nephrostomy tube placement Operative Findings: right proximal stone, minimal contrast seen opocifying proximal to the stone Description of Procedure: Patient was brought to the operating room, general anesthesia was induced. He was prepped and draped so fashion a placement dorsal lithotomy position. Cystoscopy fitted with 22-Spanish sheath was inserted per urethra, cystoscopy was performed which showed no abnormality within the bladder. Attention was then carried to the right ureteral orifice which was intubated with a 6 Fr open- ended catheter, retrograde pyelogram was performed which showed minimal contrast passed stone in the proximal ureter. At this time a sensor wire was advanced through the catheter the catheter was removed with the wire in place. Next a ureteral stent was passed over the wire, the proximal curl was visualized on fluoroscopy and distal curl was visualized using the cystoscope. The bladder was emptied and the end of the case. The patient tolerated procedure well was taken to PACU in stable condition
[2020-07-09] MEDS ORDERED: GABAPENTIN 100 MG CAP PO PRN (20:35)
[2020-07-09] MEDS ORDERED: ALBUTEROL NEBULIZED 2.5 MG/3 ML INHALATION PRN (20:35)
[2020-07-09] MEDS ORDERED: NITROGLYCERIN SL TABS 0.4 MG TAB SUBLINGUAL PRN (20:35)
[2020-07-09] MEDS ORDERED: DIPHENOX-ATROP 2.5-0.025 MG 1 EACH TAB PO PRN (20:35)
[2020-07-09 20:43] LABS: Glucose,Whole Blood 120 mg/dL (75-99)
[2020-07-09] MEDS ORDERED: SODIUM CHLORIDE 0.9% 1,000 ML IV SCH (20:45)
[2020-07-09] MEDS ORDERED: PRAVASTATIN SODIUM 80 MG TAB PO SCH (21:00)
[2020-07-09 21:15] LABS: Glucose,Whole Blood 137 mg/dL (75-99)
[2020-07-09] MEDS: DICYCLOMINE 20 MG TAB PO SCH (21:51)
[2020-07-09 22:17] LABS: Appearance,Urine Cloudy (Clear); Bacteria,Urine Rare /hpf; Bilirubin,Urine Negative (Negative); Blood,Urine Large (Negative); Color,Urine Yellow; Glucose,Urine (UA) Negative (Negative); Ketones,Urine Negative (Negative); Leukocyte Esterase,Urine Trace (Negative); Mucus,Urine Rare /hpf; Nitrite,Urine Negative (Negative); Protein,Urine Trace (Negative); RBC,Urine >182 /hpf (0-5); Specific Gravity,Urine 1.012 (1.001-1.035); Urobilinogen,Urine <2.0 mg/dL (<2.0); WBC,Urine 6 /hpf (0-5)
[2020-07-10 04:38] VITALS: RESP 18; TEMP 97.8
[2020-07-10 07:04] LABS: Glucose,Whole Blood 171 mg/dL (75-99)
[2020-07-10 07:39] LABS: African American GFR (CKD) 24 (>60 ml/min/1.73 sqM); Anion Gap 13 mmol/L; Blood Urea Nitrogen 37 mg/dL (9-20); Calcium 9.1 mg/dL (8.4-10.2); Carbon Dioxide 21 mmol/L (22-30); Chloride 102 mmol/L (98-107); Glucose 180 mg/dL (74-99); Non-African American GFR(CKD) 20 (>60 ml/min/1.73 sqM); Potassium 4.8 mmol/L (3.5-5.1); Sodium 136 mmol/L (137-145)
--- NOTE | 2020-07-10 07:53 | FL ---
EXAMINATION TYPE: FL urography retrograde DATE OF EXAM: 07/09/2020 CLINICAL HISTORY: Right ureter stone. TECHNIQUE: Fluoroscopy. COMPARISON: CT abdomen and pelvis earlier today. FINDINGS: Fluoroscopic guidance was provided during cystogram with right ureter stent insertion proc edure performed by Dr. Tipton. A total of 54 seconds of fluoroscopic time was utilized during the pr ocedure and 1 spot images was acquired. Single intraoperative image acquired shows partial visualization of ureter stent. IMPRESSION: As Above.
[2020-07-10] MEDS: DICYCLOMINE 20 MG TAB PO SCH (08:43)
[2020-07-10] MEDS ORDERED: ASPIRIN 81 MG PO SCH (09:00)
[2020-07-10] MEDS ORDERED: FAMOTIDINE 20 MG TAB PO SCH (09:00)
[2020-07-10] MEDS ORDERED: atenoloL 50 MG TAB PO SCH (09:00)
[2020-07-10 11:04] LABS: Glucose,Whole Blood 156 mg/dL (75-99)
[2020-07-10 11:49] VITALS: BP 123/69; PULSE 83
--- NOTE | 2020-07-10 12:42 | P.DS ---
Providers Date of admission: 07/09/20 17:59 Attending physician: Vu Ruelas MD Primary care physician: Luis Fernando Dupree MD Hospital Course: 70 yo male with hx of solitary kidney. He presented to the ED with flank pain, He underwent a CT which showed a 1 cm proximal ureteral stone. His Creat was at 5.8 from baseline of 1.2. Patient was also anuric. He was taken to the OR emergently for stent placement. See Op note dated 07/09 for surgery details. Patient was admitted to the hospital post operatively. His Creat improved in the am following surgery to 3 from 5.8. He was also having good urine output. He was discharged home on POD # 1. He will be set up for ureteroscopy as an outpatient. At time of discharge he was tolerating a diet, ambulating and pain is well controlled. Patient Condition at Discharge: Good Plan - Discharge Summary Discharge Rx Participant: Yes New Discharge Prescriptions: New Cephalexin [Keflex] 500 mg PO Q8HR #15 cap No Action Gabapentin [Neurontin] 100 mg PO TID PRN PRN Reason: Pain Dicyclomine [Bentyl] 20 mg PO BID atenoloL [Tenormin] 50 mg PO DAILY Cholecalciferol [Vitamin D3 (25 Mcg = 1000 Iu)] 125 mcg PO DAILY Ascorbic Acid [Vitamin C] 500 mg PO DAILY Acetaminophen [Tylenol Arthritis] 1,300 mg PO BID PRN PRN Reason: Fever And/ Or Pain Diphenox-Atrop 2.5-0.025 mg [Lomotil] 2 tab PO BID PRN PRN Reason: Diarrhea Nitroglycerin Sl Tabs [Nitrostat] 0.4 mg SUBLINGUAL Q5M PRN PRN Reason: Chest Pain Pravastatin Sodium [Pravachol] 80 mg PO HS #90 tab traMADol HCL [Ultram] 50 mg PO BID PRN PRN Reason: Pain metFORMIN HCL [metFORMIN HCL ER] 1,000 mg PO BID Albuterol Inhaler [Ventolin Hfa Inhaler] 1 - 2 puff INHALATION RT-Q6H PRN PRN Reason: Shortness Of Breath Aspirin EC [Ecotrin Low Dose] 81 mg PO DAILY Cyanocobalamin (Vitamin B-12) [Vitamin B-12] 2,500 mcg PO DAILY Famotidine [Pepcid] 20 mg PO DAILY Psyllium Husk [Metamucil] 0.4 gm PO DAILY Tamsulosin HCl [Flomax] 0.4 mg PO ONCE Discharge Medication List Acetaminophen [Tylenol Arthritis] 1,300 mg PO BID PRN 11/30/17 [History] Ascorbic Acid [Vitamin C] 500 mg PO DAILY 11/30/17 [History] Cholecalciferol [Vitamin D3 (25 Mcg = 1000 Iu)] 125 mcg PO DAILY 11/30/17 [History] Dicyclomine [Bentyl] 20 mg PO BID 11/30/17 [History] Gabapentin [Neurontin] 100 mg PO TID PRN 11/30/17 [History] atenoloL [Tenormin] 50 mg PO DAILY 11/30/17 [History] Diphenox-Atrop 2.5-0.025 mg [Lomotil] 2 tab PO BID PRN 11/24/18 [History] Nitroglycerin Sl Tabs [Nitrostat] 0.4 mg SUBLINGUAL Q5M PRN 11/24/18 [History] Pravastatin Sodium [Pravachol] 80 mg PO HS #90 tab 11/27/18 [Rx] metFORMIN HCL [metFORMIN HCL ER] 1,000 mg PO BID 04/18/19 [History] traMADol HCL [Ultram] 50 mg PO BID PRN 04/18/19 [History] Albuterol Inhaler [Ventolin Hfa Inhaler] 1 - 2 puff INHALATION RT-Q6H PRN 07/09/20 [History] Aspirin EC [Ecotrin Low Dose] 81 mg PO DAILY 07/09/20 [History] Cyanocobalamin (Vitamin B-12) [Vitamin B-12] 2,500 mcg PO DAILY 07/09/20 [History] Famotidine [Pepcid] 20 mg PO DAILY 07/09/20 [History] Psyllium Husk [Metamucil] 0.4 gm PO DAILY 07/09/20 [History] Tamsulosin HCl [Flomax] 0.4 mg PO ONCE 07/09/20 [History] Cephalexin [Keflex] 500 mg PO Q8HR #15 cap 07/10/20 [Rx] Follow up Appointment(s)/Referral(s): Luis Fernando Dupree MD [Primary Care Provider] - 1-2 days Patient Instructions/Handouts: Type 2 Diabetes in Adults: New Diagnosis (DC), Ureteral Stent Placement (DC) Activity/Diet/Wound Care/Special Instructions: You will be contacted to schedule your kidney stone removal surgery You may see some blood in the urine
[2020-07-11] MEDS ORDERED: metFORMIN 500 MG TAB PO SCH (21:00)
== END 2020-07-10 15:48 | disposition home or self-care (01) | DRG 660 ==
LOC: EC 16:10 → 5NMEDONC 17:59
PROVIDERS: ADMIT Urology; ATTEND Urology
PROC: 0T768DZ Dilation of Right Ureter with Intraluminal Device, Via Natural or Artificial Opening Endoscopic (ICD-10-PCS; principal; 2020-07-09 19:30)
PROC: BT1D1ZZ Fluoroscopy of Right Kidney, Ureter and Bladder using Low Osmolar Contrast (ICD-10-PCS; principal; 2020-07-09 19:30)
DX: N20.2 Calculus of kidney with calculus of ureter (principal); N17.9 Acute kidney failure, unspecified; E11.9 Type 2 diabetes mellitus without complications; K21.9 Gastro-esophageal reflux disease without esophagitis; E88.1 Lipodystrophy, not elsewhere classified; K58.9 Irritable bowel syndrome, unspecified; I25.10 Atherosclerotic heart disease of native coronary artery without angina pectoris; E78.5 Hyperlipidemia, unspecified; I10 Essential (primary) hypertension; Z20.822 Contact with and (suspected) exposure to COVID-19; L71.9 Rosacea, unspecified; J45.909 Unspecified asthma, uncomplicated; Z96.611 Presence of right artificial shoulder joint; Z95.5 Presence of coronary angioplasty implant and graft; Z90.5 Acquired absence of kidney; Z79.899 Other long term (current) drug therapy; Z79.84 Long term (current) use of oral hypoglycemic drugs; Z79.82 Long term (current) use of aspirin; Z87.442 Personal history of urinary calculi; Z85.528 Personal history of other malignant neoplasm of kidney; Z87.19 Personal history of other diseases of the digestive system; Z80.0 Family history of malignant neoplasm of digestive organs; Z80.8 Family history of malignant neoplasm of other organs or systems
CPT/HCPCS: 36415; 74176; 74420; 80048; 80053; 81001; 85025; 87635; 96360; 99284

== ENCOUNTER → 2020-07-09 | Outpatient (CLI) | payer MEDICARE ==
--- NOTE | 2020-07-09 12:44 | XR ---
EXAMINATION TYPE: XR KUB DATE OF EXAM: 07/09/2020 COMPARISON: 04/25/2019 INDICATION: Right-sided pain TECHNIQUE: Single view abdomen frontal projection FINDINGS: There is a normal bowel gas pattern. Psoas margins are normal. No organomegaly is present. Patient is post left nephrectomy. There is a right hemipelvis calcification of the distal ureteral stone. IMPRESSION: 1. Possible new right hemipelvis distal ureteral stone. Clinical correlation recommended.
== END | disposition home or self-care (01) ==
LOC: RADXRMAIN 11:31
PROVIDERS: ATTEND Urology
DX: N20.0 Calculus of kidney (principal)
CPT/HCPCS: 74018

== ENCOUNTER 2020-07-18 08:34 | Day surgery (SDC) | payer MEDICARE ==
[2020-07-13 09:03] VITALS: BMI 33.3
--- NOTE | 2020-07-16 20:11 | P.GSHP ---
History of Present Illness H&P Date: 07/16/20 70 yo male with a solitary right kidney[sp nephrectomy for ca lt kidney 2015] who recently had a double j catheter placed by dr Suraj marrufo obstructing ureteral stones right. He now comes for ureteroscopy right with laser lithotripsy - Constitutional Constitutional: Denies chills, Denies fever - EENT Eyes: denies blurred vision, denies pain Ears, nose, mouth and throat: Denies headache, Denies sore throat - Cardiovascular Cardiovascular: Denies chest pain, Denies shortness of breath - Respiratory Respiratory: Denies cough, Denies 7 - Gastrointestinal Gastrointestinal: Denies abdominal pain, Denies diarrhea, Denies nausea, Denies vomiting - Genitourinary (Female) Genitourinary: Denies dysuria, Denies hematuria - Genitourinary (Male) Genitourinary: Denies dysuria, Denies hematuria - Musculoskeletal Musculoskeletal: Denies myalgias - Integumentary Integumentary: Denies pruritus, Denies rash - Neurological Neurological: Denies numbness, Denies weakness - Psychiatric Psychiatric: Denies anxiety, Denies depression - Endocrine Endocrine: Denies fatigue, Denies weight change Past Medical History Past Medical History: Asthma, Coronary Artery Disease (CAD), Cancer, Diabetes Mellitus, GERD/Reflux, Hyperlipidemia, Hypertension, Skin Disorder Additional Past Medical History / Comment(s): IBS, hx. kidney cancer 2013, hx. colon polyps, lipodystrophy,roscea, KIDNEY STONES History of Any Multi-Drug Resistant Organisms: None Reported Past Surgical History: Heart Catheterization With Stent, Joint Replacement Additional Past Surgical History / Comment(s): left nephrectomy, colonoscopy, RIGHT SHOULDER replacement 06/05/20 Past Anesthesia/Blood Transfusion Reactions: No Reported Reaction Additional Past Anesthesia/Blood Transfusion Reaction / Comment(s): no hx blood transfusion Date of Last Stent Placement:: 11/26/18 Smoking Status: Never smoker - Past Family History Father Family Medical History: Cancer Additional Family Medical History / Comment(s): Colon cancer. Mother Family Medical History: Cancer Additional Family Medical History / Comment(s): Cervical cancer. Medications and Allergies Home Medications Medication Instructions Recorded Confirmed Type Acetaminophen [Tylenol Arthritis] 1,300 mg PO BID PRN 11/30/17 07/13/20 History Ascorbic Acid [Vitamin C] 500 mg PO DAILY 11/30/17 07/13/20 History Cholecalciferol [Vitamin D3 (25 125 mcg PO DAILY 11/30/17 07/13/20 History Mcg = 1000 Iu)] Dicyclomine [Bentyl] 20 mg PO BID 11/30/17 07/13/20 History Gabapentin [Neurontin] 100 mg PO TID PRN 11/30/17 07/13/20 History atenoloL [Tenormin] 50 mg PO DAILY 11/30/17 07/13/20 History Diphenox-Atrop 2.5-0.025 mg 2 tab PO BID PRN 11/24/18 07/13/20 History [Lomotil] Nitroglycerin Sl Tabs [Nitrostat] 0.4 mg SUBLINGUAL Q5M PRN 11/24/18 07/13/20 History Pravastatin Sodium [Pravachol] 80 mg PO HS #90 tab 11/27/18 07/13/20 Rx metFORMIN HCL [metFORMIN HCL ER] 1,000 mg PO BID 04/18/19 07/13/20 History traMADol HCL [Ultram] 50 mg PO BID PRN 04/18/19 07/13/20 History Albuterol Inhaler [Ventolin Hfa 1 - 2 puff INHALATION RT-Q6H PRN 07/09/20 07/13/20 History Inhaler] Aspirin EC [Ecotrin Low Dose] 81 mg PO DAILY 07/09/20 07/13/20 History Cyanocobalamin (Vitamin B-12) 2,500 mcg PO DAILY 07/09/20 07/13/20 History [Vitamin B-12] Famotidine [Pepcid] 20 mg PO DAILY 07/09/20 07/13/20 History Psyllium Husk [Metamucil] 0.4 gm PO DAILY 07/09/20 07/13/20 History Tamsulosin HCl [Flomax] 0.4 mg PO ONCE 07/09/20 07/13/20 History Allergies Allergy/AdvReac Type Severity Reaction Status Date / Time cephalexin [From Keflex] Allergy Rash/Hives Verified 07/13/20 08:42 Surgical - Exam - General well developed, well nourished, no distress - Eyes PERRL - ENT no hearing loss - Neck no masses, trachea midline - Respiratory normal expansion, normal respiratory effort - Cardiovascular Rhythm: regular - Abdomen Abdomen: soft, non tender - Genitourinary normal penis with no external lesions, testicles present - Integumentary no growths - Neurologic normal coordination, normal sensation - Musculoskeletal normal gait, normal posture - Psychiatric oriented to time, oriented to person, oriented to place, speech is normal, memor y intact Results - Imaging CT scan - abdomen: report reviewed, image reviewed CT scan - pelvis: report reviewed, image reviewed Assessment and Plan Assessment: Impression: Right ureteral stones with obstruction. Solitary right kidney. htn, DM copd Plan Right ureteroscopy with laser lithotripsy
[~2020-07-18 08:34] MED LIST changes: -ACETAMINOPHEN TAB 500 MG TAB PO PRN; +AMPICILLIN 1,000 MG in SODIUM CHLORIDE 0.9% 50 ML IVPB PRN; +GENTAMICIN 120 MG in SODIUM CHLORIDE 0.9% 100 ML IVPB PRN; +HYDROmorphone 0.5 MG/0.5 ML SYRINGE IVP PRN; +LACTATED RINGERS 1,000 ML IV SCH; -MELOXICAM 7.5 MG TAB PO PRN; -MIDAZOLAM 2 MG/2 ML VIAL IV PRN; -TRANEXAMIC ACID 1,000 MG in SODIUM CHLORIDE 0.9% 100 ML IVPB PRN
--- NOTE | 2020-07-18 08:54 | XR ---
EXAMINATION TYPE: XR KUB DATE OF EXAM: 07/18/2020 Comparison: 07/09/2020 Clinical History: 70-year-old male KIDNEY STONES Findings: Some asymmetric elevation right hemidiaphragm. Left paramedian surgical clips related to prior nephre ctomy. Right ureteral stent is visualized. Bowel content partially obscures the renal shadows, partic ularly on the left. Multiple pelvic phleboliths. Nonobstructive bowel gas pattern. Impression: 1. Right ureteral stent in place. No definite suspicious calcification radiographically apparent. 2. Multiple pelvic phleboliths. 3. Surgical clips related to prior left nephrectomy.
[2020-07-18 09:11] VITALS: TEMP 97.6
[2020-07-18 09:19] LABS: Glucose,Whole Blood 172 mg/dL (75-99)
[2020-07-18] MEDS ORDERED: fentaNYL (PF) 50 MCG/ML 2 ML AMP ONE (10:20)
[2020-07-18] MEDS ORDERED: PROPOFOL 10 MG/ML 20 ML VIAL IV ONE (10:20)
[2020-07-18] MEDS ORDERED: NEOSTIGMINE 1 MG/ML 10 ML VIAL ONE (10:20)
[2020-07-18] MEDS ORDERED: PHENYLEPHRINE-0.9% NACL SYG 1,000 MCG/10 ML SYRINGE ONE (10:20)
[2020-07-18] MEDS ORDERED: SUCCINYLCHOLINE CHLORIDE 100 MG/5 ML SYR IV ONE (10:20)
[2020-07-18] MEDS ORDERED: LIDOCAINE 1% INJ 10MG/ML (20 ML MDV) ONE (10:20)
[2020-07-18] MEDS ORDERED: MIDAZOLAM 2 MG/2 ML VIAL ONE (10:20)
[2020-07-18] MEDS ORDERED: ROCURONIUM 10 MG/ML (5 ML VIAL) IV ONE (10:20)
[2020-07-18] MEDS ORDERED: GLYCOPYRROLATE 0.2 MG/ML 2 ML VIAL ONE (10:20)
[2020-07-18] MEDS ORDERED: GENTAMICIN 40 MG/ML 2 ML VIAL ONE (10:20)
--- NOTE | 2020-07-18 11:22 | P.OP ---
Date of Procedure: 07/18/20 Preoperative Diagnosis: Right ureteral stone status post stent placement and solitary kidney Postoperative Diagnosis: Same, right renal stones Procedure(s) Performed: Cystoscopy, removal double-J catheter right, right ureteroscopy stone basketing, right ureteral renoscopy with laser lithotripsy, replacement of 626 stent right Anesthesia: REINA Surgeon: Raffaele Orr Estimated Blood Loss (ml): 10 Pathology: other (Stone) Condition: stable Disposition: PACU Indications for Procedure: The patient is 70. He had a left nephrectomy for cancer 7 years ago. He has a history of stone disease. He recently passed a 6 mm stone into the mid ureter. A stent was placed because of renal failure. He now comes for stone and stent removal Description of Procedure: The patient is brought to the operating suite. He is given a general endotracheal anesthesia. He's placed lithotomy position with sterile prep and drape. Cystoscopy with a 21-[place] sheath identifies a normal urethra. The prostate shows an open bladder neck. This stent is identified and quite encrusted. The bladder wall has stony debris. I pulled the stent to the urethral meatus and an attempt to pass an 035 wire through the stent but is too encrusted. I remove the stent up. I then pass a semirigid ureteroscope into the bladder and identify the right ureteral orifice. I passed the ureteroscope up the orifice and see stony debris. There is some fragments that are basketed. I passed up into the renal pelvis and see no remaining stones. There is a moderate amount of edema. I removed the ureteroscope after pass an 035 wire through the ureteroscope into the renal pelvis. I passed the flexible ureteroscope over the wire up into the renal pelvis. There are 2 stones that are broken into tiny fragments with the 270 laser probe. These are too small to basket. These will pass secondarily. I do a pullout ureteroscopy and see no remaining stone up. Because of the solitary kidney I'll replace a stent. An 035 wires and passed through the cystoscope up in the renal pelvis. Over the wires passed a 6 x 26 double-J catheter that coils in the renal pelvis and the bladder the bladder strain stone fragments are collected the patient's awake and returned recovery room good condition Impression successful right ureteroscopy stent removal ureteroscopic stone removal ureteral renoscopy with laser lithotripsy to renal stones. The patient be discharged home upon recovery and found the office in one week for stent removal. He will need a metabolic evaluation for his active stone formation.
[2020-07-18 11:25] VITALS: RESP 16
[2020-07-18 11:33] LABS: Glucose,Whole Blood 170 mg/dL (75-99)
[2020-07-18 12:56] VITALS: BP 134/83; PULSE 75
--- NOTE | 2020-07-18 15:30 | FL ---
EXAMINATION TYPE: FL fluoroscopy <1hr DATE OF EXAM: 07/18/2020 FLUOROSCOPY Fluoroscopy time of 35 seconds was used during urologic intervention with cystoscopy and right-sided kidney stone intervention with stent placement. 3 image/s document/s the procedure.
== END 2020-07-18 13:01 | disposition home or self-care (01) ==
LOC: OR 08:34
PROVIDERS: ATTEND Urology
DX: N20.2 Calculus of kidney with calculus of ureter (principal); Z85.528 Personal history of other malignant neoplasm of kidney; J45.909 Unspecified asthma, uncomplicated; I25.10 Atherosclerotic heart disease of native coronary artery without angina pectoris; E11.9 Type 2 diabetes mellitus without complications; K21.9 Gastro-esophageal reflux disease without esophagitis; E78.5 Hyperlipidemia, unspecified; I10 Essential (primary) hypertension; Z86.010 Personal history of colon polyps; Z87.442 Personal history of urinary calculi; K58.9 Irritable bowel syndrome, unspecified; E66.9 Obesity, unspecified; Z68.32 Body mass index [BMI] 32.0-32.9, adult; L71.9 Rosacea, unspecified; N28.9 Disorder of kidney and ureter, unspecified; Z95.5 Presence of coronary angioplasty implant and graft; Z96.611 Presence of right artificial shoulder joint; Z90.5 Acquired absence of kidney; Z98.890 Other specified postprocedural states; Z80.0 Family history of malignant neoplasm of digestive organs; Z80.49 Family history of malignant neoplasm of other genital organs; Z79.84 Long term (current) use of oral hypoglycemic drugs; Z79.82 Long term (current) use of aspirin; Z79.899 Other long term (current) drug therapy; Z88.1 Allergy status to other antibiotic agents
CPT/HCPCS: 52356; 82365; 74018; C2625; C1769; J2250; J1580; J1100; J2710; J2405; J2001; J3010; J0290; J2370; J0330; J2704; 76000

== ENCOUNTER → 2021-05-01 | Outpatient (CLI) | payer MEDICARE ==
--- NOTE | 2021-05-02 08:40 | CT ---
EXAMINATION TYPE: CT abdomen pelvis wo con DATE OF EXAM: 05/01/2021 HISTORY: RIGHT FLANK PAIN, history of kidney stones. CT DLP: 1311.7 mGycm. Automated Exposure Control for Dose Reduction was Utilized. TECHNIQUE: CT scan of the abdomen and pelvis is performed without oral or IV contrast. COMPARISON: Most recent CT July 09, 2020 FINDINGS: Within the limitations of a non-contrast study, the following observations are made. LUNG BASES: Mild bibasilar linear scarring redemonstrated. LIVER/GB: No significant abnormality is appreciated. PANCREAS: No significant abnormality is seen. SPLEEN: Small posterior inferior splenule redemonstrated. ADRENALS: No significant abnormality is seen. KIDNEYS: Left kidney redemonstrated surgically absent. Right kidney shows 4 small nonobstructing calc mariana currently measuring 3 mm and smaller in size at mid to lower pole level. There is 1.7 cm exophyti c simple appearing thin-walled cyst medially on axial image 63 Redemonstrated. Anterior rotation or p ositioning of kidney redemonstrated. No hydronephrosis or obstructing calculi clearly seen bilaterall y. No intraluminal calculi and bladder. BOWEL: Normal-appearing appendix from cecum. GENITAL ORGANS: Prostate gland Stable and upper limits of normal in size. Adjacent scattered pelvic p hleboliths redemonstrated. LYMPH NODES: No greater than 1cm abdominal or pelvic lymph nodes are appreciated. OSSEOUS STRUCTURES: No significant abnormality is seen. OTHER: No significant additional abnormality is seen. IMPRESSION: There are 3 small nonobstructing right renal calculi currently. No hydronephrosis or obst ructing right renal calculi currently. No new or acute findings evident.
== END | disposition home or self-care (01) ==
LOC: RADCTMAIN 15:44
PROVIDERS: ATTEND Urology
DX: N20.0 Calculus of kidney (principal)
CPT/HCPCS: 74176

== ENCOUNTER 2021-11-24 08:03 | Emergency (ER) | payer MEDICARE ==
[2021-11-24 08:12] VITALS: TEMP 97.9
[2021-11-24] MEDS ORDERED: SODIUM CHLORIDE 0.9% 1,000 ML IV STA (08:24)
--- NOTE | 2021-11-24 08:32 | ED ---
Abdominal Pain HPI - General Chief Complaint: Abdominal Pain Stated Complaint: Right side pain Time Seen by Provider: 11/24/21 08:12 Source: patient, family, RN notes reviewed Mode of arrival: ambulatory Limitations: no limitations - History of Present Illness Initial Comments: This is a 71-year-old male who presents to the emergency department for right upper quadrant pain. Patient states that this began suddenly at approximately 5 AM. Patient states that this is a sharp/cramping pain that seems to be waxing and waning. He does note that this seems to be worse when he inhales. Denies any chest pain or shortness of breath. He has never had symptoms like this in the past. Denies any intake of spicy or fatty foods last night. Denies any history of abdominal surgeries, he did have a left nephrectomy in 2013 due to kidney cancer. Denies any fevers, chills, sore throat, cough, dyspnea, chest pain, palpitations, nausea, vomiting, diarrhea, back pain, or headaches. MD Complaint: abdominal pain Location: RUQ Radiation: none Quality: cramping, sharp Associated Symptoms: denies other symptoms - Related Data Home Medications Medication Instructions Recorded Confirmed Acetaminophen [Tylenol Arthritis] 1,300 mg PO BID PRN 11/30/17 07/13/20 Ascorbic Acid [Vitamin C] 500 mg PO DAILY 11/30/17 07/18/20 Cholecalciferol [Vitamin D3 (25 125 mcg PO DAILY 11/30/17 07/18/20 Mcg = 1000 Iu)] Dicyclomine [Bentyl] 20 mg PO BID 11/30/17 07/18/20 Gabapentin [Neurontin] 100 mg PO TID PRN 11/30/17 07/18/20 atenoloL [Tenormin] 50 mg PO DAILY 11/30/17 07/13/20 Diphenox-Atrop 2.5-0.025 mg 2 tab PO BID PRN 11/24/18 07/18/20 [Lomotil] Nitroglycerin Sl Tabs [Nitrostat] 0.4 mg SUBLINGUAL Q5M PRN 11/24/18 07/13/20 metFORMIN HCL [metFORMIN HCL ER] 1,000 mg PO BID 04/18/19 07/18/20 traMADol HCL [Ultram] 50 mg PO BID PRN 04/18/19 07/18/20 Albuterol Inhaler [Ventolin Hfa 1 - 2 puff INHALATION RT-Q6H PRN 07/09/20 07/18/20 Inhaler] Aspirin EC [Ecotrin Low Dose] 81 mg PO DAILY 07/09/20 07/13/20 Cyanocobalamin (Vitamin B-12) 2,500 mcg PO DAILY 07/09/20 07/18/20 [Vitamin B-12] Famotidine [Pepcid] 20 mg PO DAILY 07/09/20 07/18/20 Psyllium Husk [Metamucil] 0.4 gm PO DAILY 07/09/20 07/18/20 Tamsulosin HCl [Flomax] 0.4 mg PO ONCE 07/09/20 07/18/20 Previous Rx's Medication Instructions Recorded Pravastatin Sodium [Pravachol] 80 mg PO HS #90 tab 11/27/18 Allergies Allergy/AdvReac Type Severity Reaction Status Date / Time cephalexin [From Keflex] Allergy Rash/Hives Verified 11/24/21 08:11 Review of Systems ROS Statement: Those systems with pertinent positive or pertinent negative responses have been documented in the HPI. ROS Other: All systems not noted in ROS Statement are negative. Past Medical History Past Medical History: Asthma, Coronary Artery Disease (CAD), Cancer, Diabetes Mellitus, GERD/Reflux, Hyperlipidemia, Hypertension, Skin Disorder Additional Past Medical History / Comment(s): IBS, hx. kidney cancer 2013, hx. colon polyps, lipodystrophy,roscea, KIDNEY STONES History of Any Multi-Drug Resistant Organisms: None Reported Past Surgical History: Heart Catheterization With Stent, Joint Replacement Additional Past Surgical History / Comment(s): left nephrectomy, colonoscopy, RIGHT SHOULDER replacement 06/05/20 Past Anesthesia/Blood Transfusion Reactions: No Reported Reaction Additional Past Anesthesia/Blood Transfusion Reaction / Comment(s): no hx blood transfusion Date of Last Stent Placement:: 11/26/18 Past Psychological History: No Psychological Hx Reported Smoking Status: Never smoker Past Alcohol Use History: None Reported Past Drug Use History: None Reported - Past Family History Father Family Medical History: Cancer Additional Family Medical History / Comment(s): Colon cancer. Mother Family Medical History: Cancer Additional Family Medical History / Comment(s): Cervical cancer. General Exam Limitations: no limitations General appearance: alert, in distress Head exam: Present: atraumatic, normocephalic, normal inspection Respiratory exam: Present: normal lung sounds bilaterally. Absent: respiratory distress, wheezes, rales, rhonchi, stridor Cardiovascular Exam: Present: regular rate, normal rhythm, normal heart sounds. Absent: systolic murmur, diastolic murmur, rubs, gallop, clicks GI/Abdominal exam: Present: soft, normal bowel sounds. Absent: distended, guarding, rebound, rigid Expanded GI/Abdominal exam: Present: Belcher's sign Neurological exam: Present: alert, oriented X3, CN II-XII intact Psychiatric exam: Present: normal affect, normal mood Skin exam: Present: warm, dry, intact, normal color. Absent: rash Course Vital Signs 11/24/21 11/24/21 11/24/21 08:10 08:49 11:26 Temperature 97.9 F Pulse Rate 100 96 92 Respiratory 20 18 18 Rate Blood Pressure 165/101 155/102 144/98 O2 Sat by Pulse 94 L 94 L 94 L Oximetry 11/24/21 12:58 Temperature 97.9 F Pulse Rate 98 Respiratory 18 Rate Blood Pressure 149/94 O2 Sat by Pulse 94 L Oximetry Medical Decision Making - Medical Decision Making This is a 71-year-old male who presents to the emergency department for right upper quadrant pain. Lab work and urinalysis were nonactionable. Ultrasound of the right upper quadrant did not reveal any irregularities. Given the patient's multiple comorbidities, chest x-ray and computed tomography scan of the abdomen and pelvis were obtained. Chest x-ray revealed no acute cardiopulmonary process. Computed tomography scan of the abdomen and pelvis did not reveal any acute causes to explain the patient's symptoms. It did however note possible new intrahepatic masses. Gallbladder margins were also distended, however there was no surrounding fat stranding or fluid. I spoke with Dr. Villarreal, general surgery, and she advised he follow-up with his PCP to discuss biopsy of the liver, especially with his history of kidney cancer. States that this time she would not do anything with the gallbladder. Discussed this with the patient, and we also discussed that if he does continue to have symptoms consistent with gallbladder problems, he may need a HIDA scan for further evaluation of gallbladder function, which is something he can also discuss with his PCP. Return precautions reviewed in depth, the patient is instructed to return to the emergency department with any new, worsening, or concerning symptoms. Patient verbalized understanding. This case was discussed in detail with the attending ED physician. Presentation, findings, and treatment plan discussed in detail as well. - Lab Data Result diagrams: 11/24/21 08:36 11/24/21 08:36 Lab Results 11/24/21 11/24/21 11/24/21 Range/Units 08:36 08:36 08:36 WBC 9.3 (3.8-10.6) k/uL RBC 4.90 (4.30-5.90) m/uL Hgb 15.8 (13.0-17.5) gm/dL Hct 44.8 (39.0-53.0) % MCV 91.5 (80.0-100.0) fL MCH 32.2 (25.0-35.0) pg MCHC 35.2 (31.0-37.0) g/dL RDW 12.4 (11.5-15.5) % Plt Count 143 L (150-450) k/uL MPV 7.8 Neutrophils % 67 % Lymphocytes % 22 % Monocytes % 6 % Eosinophils % 3 % Basophils % 1 % Neutrophils # 6.2 (1.3-7.7) k/uL Lymphocytes # 2.1 (1.0-4.8) k/uL Monocytes # 0.6 (0-1.0) k/uL Eosinophils # 0.2 (0-0.7) k/uL Basophils # 0.1 (0-0.2) k/uL Sodium 141 (137-145) mmol/L Potassium 4.2 (3.5-5.1) mmol/L Chloride 104 (98-107) mmol/L Carbon Dioxide 28 (22-30) mmol/L Anion Gap 9 mmol/L BUN 16 (9-20) mg/dL Creatinine 1.10 (0.66-1.25) mg/dL Est GFR (CKD-EPI)AfAm 79 (>60 ml/min/1.73 sqM) Est GFR (CKD-EPI)NonAf 68 (>60 ml/min/1.73 sqM) Glucose 185 H (74-99) mg/dL Calcium 9.3 (8.4-10.2) mg/dL Total Bilirubin 0.8 (0.2-1.3) mg/dL AST 23 (17-59) U/L ALT 21 (4-49) U/L Alkaline Phosphatase 73 (38-126) U/L Troponin I <0.012 (0.000-0.034) ng/mL Total Protein 7.0 (6.3-8.2) g/dL Albumin 4.6 (3.5-5.0) g/dL Amylase 72 (30-110) U/L Lipase 78 (23-300) U/L Urine Color Urine Appearance (Clear) Urine pH (5.0-8.0) Ur Specific [place] (1.001-1.035) Urine Protein (Negative) Urine Glucose (UA) (Negative) Urine Ketones (Negative) Urine Blood (Negative) Urine Nitrite (Negative) Urine Bilirubin (Negative) Urine Urobilinogen (<2.0) mg/dL Ur Leukocyte Esterase (Negative) Urine RBC (0-5) /hpf Urine WBC (0-5) /hpf 11/24/21 Range/Units 10:14 WBC (3.8-10.6) k/uL RBC (4.30-5.90) m/uL Hgb (13.0-17.5) gm/dL Hct (39.0-53.0) % MCV (80.0-100.0) fL MCH (25.0-35.0) pg MCHC (31.0-37.0) g/dL RDW (11.5-15.5) % Plt Count (150-450) k/uL MPV Neutrophils % % Lymphocytes % % Monocytes % % Eosinophils % % Basophils % % Neutrophils # (1.3-7.7) k/uL Lymphocytes # (1.0-4.8) k/uL Monocytes # (0-1.0) k/uL Eosinophils # (0-0.7) k/uL Basophils # (0-0.2) k/uL Sodium (137-145) mmol/L Potassium (3.5-5.1) mmol/L Chloride (98-107) mmol/L Carbon Dioxide (22-30) mmol/L Anion Gap mmol/L BUN (9-20) mg/dL Creatinine (0.66-1.25) mg/dL Est GFR (CKD-EPI)AfAm (>60 ml/min/1.73 sqM) Est GFR (CKD-EPI)NonAf (>60 ml/min/1.73 sqM) Glucose (74-99) mg/dL Calcium (8.4-10.2) mg/dL Total Bilirubin (0.2-1.3) mg/dL AST (17-59) U/L ALT (4-49) U/L Alkaline Phosphatase (38-126) U/L Troponin I (0.000-0.034) ng/mL Total Protein (6.3-8.2) g/dL Albumin (3.5-5.0) g/dL Amylase (30-110) U/L Lipase (23-300) U/L Urine Color Yellow Urine Appearance Clear (Clear) Urine pH 8.0 (5.0-8.0) Ur Specific [place] 1.019 (1.001-1.035) Urine Protein 1+ H (Negative) Urine Glucose (UA) 2+ H (Negative) Urine Ketones Negative (Negative) Urine Blood Negative (Negative) Urine Nitrite Negative (Negative) Urine Bilirubin Negative (Negative) Urine Urobilinogen <2.0 (<2.0) mg/dL Ur Leukocyte Esterase Negative (Negative) Urine RBC 2 (0-5) /hpf Urine WBC <1 (0-5) /hpf - EKG Data EKG Comments: Sinus rhythm. Left anterior fascicular block. Ventricular rate 99 bpm, AL interval 189 ms, QRS duration 85 ms, QTC 384 ms. - Radiology Data Radiology results: report reviewed, image reviewed Disposition Clinical Impression: Liver mass Disposition: HOME SELF-CARE Instructions (If sedation given, give patient instructions): Acute Abdominal Pain (ED) Additional Instructions: Return to the emergency department with any new, worsening, or concerning symptoms. Follow up with your primary care provider early this week to discuss a referral for possible liver biopsy. You should also discuss having a HIDA scan for further evaluation of your gallbladder due to the distended margins seen on the computed tomography scan. Is patient prescribed a controlled substance at d/c from ED?: No Referrals: Luis Fernando Dupree MD [Primary Care Provider] - 1-2 days
[2021-11-24 08:45] LABS: Basophils # (A) 0.1 k/uL (0-0.2); Basophils % (A) 1 %; Eosinophils # (A) 0.2 k/uL (0-0.7); Eosinophils % (A) 3 %; HCT 44.8 % (39.0-53.0); HGB 15.8 gm/dL (13.0-17.5); Lymphocytes # (A) 2.1 k/uL (1.0-4.8); Lymphocytes % (A) 22 %; MCH 32.2 pg (25.0-35.0); MCHC 35.2 g/dL (31.0-37.0); MCV 91.5 fL (80.0-100.0); Mean Platelet Volume 7.8; Monocytes # (A) 0.6 k/uL (0-1.0); Monocytes % (A) 6 %; Neutrophils # (A) 6.2 k/uL (1.3-7.7); Neutrophils % (A) 67 %; Platelet Count 143 k/uL (150-450); RDW 12.4 % (11.5-15.5); WBC 9.3 k/uL (3.8-10.6)
[2021-11-24 08:53] VITALS: RESP 18
[2021-11-24 09:05] LABS: Albumin 4.6 g/dL (3.5-5.0); Calcium 9.3 mg/dL (8.4-10.2); Potassium 4.2 mmol/L (3.5-5.1); Total Bilirubin 0.8 mg/dL (0.2-1.3)
--- NOTE | 2021-11-24 09:50 | US ---
EXAMINATION TYPE: US gallbladder DATE OF EXAM: 11/24/2021 COMPARISON: CT 05/01/2021 CLINICAL HISTORY: RUQ pain. EXAM MEASUREMENTS: Liver Length: 17.1 cm Gallbladder Wall: 0.2 cm CBD: 0.3 cm Right Kidney: 14.0 x 6.3 x 6.9 cm Pancreas: visualized portions wnl Liver: difficult to penetrate, multiple scattered hypoechoic lesions throughout, largest near gallbl adder has internal flow and measures 3.7 x 2.9 x 4.4 cm. Gallbladder: No stones seen Evidence for sonographic Belcher's sign: Yes CBD: wnl Right Kidney: No hydronephrosis or masses seen Visualized pancreas appears within normal limits. Visualized liver is heterogeneously hyperechoic. Fi ndings consistent with diffuse fatty infiltration. Gallbladder is seen without shadowing mobile galls tones. No right-sided hydronephrosis. Tiny nonobstructing right renal calculi on CT less well seen on ultrasound. IMPRESSION: No gallstones or ultrasound evidence for acute cholecystitis.
--- NOTE | 2021-11-24 10:30 | XR ---
EXAMINATION TYPE: XR chest 2V DATE OF EXAM: 11/24/2021 COMPARISON: Chest x-ray June 05, 2020 HISTORY: Right upper quadrant pain and hypoxia. TECHNIQUE: Frontal and lateral views of the chest are obtained. FINDINGS: Elevated right hemidiaphragm redemonstrated. Lobulated contour left hemidiaphragm again se en. There is no suspicious new focal air space opacity, pleural effusion, or pneumothorax seen. The cardiac silhouette size remains within normal limits. Surgical change right shoulder is partially luis ged similar to prior. IMPRESSION: No acute process. No significant change from prior.
[2021-11-24 10:34] LABS: Appearance,Urine Clear (Clear); Bilirubin,Urine Negative (Negative); Blood,Urine Negative (Negative); Color,Urine Yellow; Glucose,Urine (UA) 2+ (Negative); Ketones,Urine Negative (Negative); Leukocyte Esterase,Urine Negative (Negative); Nitrite,Urine Negative (Negative); Protein,Urine 1+ (Negative); RBC,Urine 2 /hpf (0-5); Specific Gravity,Urine 1.019 (1.001-1.035); Urobilinogen,Urine <2.0 mg/dL (<2.0); WBC,Urine <1 /hpf (0-5)
--- NOTE | 2021-11-24 11:20 | CT ---
EXAMINATION TYPE: CT abdomen pelvis w con DATE OF EXAM: 11/24/2021 COMPARISON: Prior CT May 01, 2021 and older studies. HISTORY: Rt sided pain CT DLP: 1632.8 mGycm, Automated Exposure Control for Dose Reduction was Utilized. CONTRAST: CT scan of the abdomen and pelvis is performed without oral and with IV Contrast, patient injected wi th 80 mL of Isovue 300. FINDINGS: LUNG BASES: Eventrated anterior right hemidiaphragm containing liver redemonstrated. Mild bibasilar l inear scarring and/or atelectasis. LIVER/GB: Visualized liver heterogeneously hypodense. Peripheral oval 3.1 cm rim vascularity axial im age 9. There are no new suspicious additional hypodense and isodense masses throughout the liver. For reference there is 2.0 cm low dense lesion right hepatic lobe axial image 20. For reference there is partially bulging isodense 2.9 cm lesion anteriorly near gallbladder axis image 19. Gallbladder has distended margins. No surrounding fluid or fat stranding. No biliary dilatation. PANCREAS: No significant abnormality is seen. SPLEEN: No significant abnormality is seen. ADRENALS: Structural clips in region of left adrenal gland redemonstrated. KIDNEYS: Left kidney surgically absent. Single 2-3 mm nonobstructing calculus lower pole right kidney coronal image 53. BOWEL: Normal appearance appendix from the cecum . Few scattered colonic diverticula. No CT evidence for acute diverticulitis. PROSTATE/SEMINAL VESICLES: Scattered right-sided pelvic phleboliths redemonstrated. LYMPH NODES: No greater than 1cm abdominal or pelvic lymph nodes are appreciated. OSSEOUS STRUCTURES: Transitional type vertebra lumbosacral junction redemonstrated. Mnla-[id number] axial joint space loss both hips redemonstrated. Facet arthropathy lower lumbar spine. OTHER: No significant additional abnormality is seen. IMPRESSION: No significant acute finding is seen to account for patient's clinical symptoms of right -sided pain. Stable single 2-3 mm nonobstructing right renal calculus current study. Interval passage of other visualized tiny calculi from most recent prior CT. Persistent fatty infiltrated hepatocellu lar disease. Suggestion of new intrahepatic masses from prior CTs. Advise nonemergent follow-up liver protocol contrast-enhanced CT or MRI to further evaluate.
[2021-11-24 13:00] VITALS: BP 149/94; PULSE 98
== END 2021-11-24 13:00 | disposition home or self-care (01) ==
LOC: EC 08:03
DX: R16.0 Hepatomegaly, not elsewhere classified (principal); E11.9 Type 2 diabetes mellitus without complications; I10 Essential (primary) hypertension; I25.10 Atherosclerotic heart disease of native coronary artery without angina pectoris; J45.909 Unspecified asthma, uncomplicated; K21.9 Gastro-esophageal reflux disease without esophagitis; E78.5 Hyperlipidemia, unspecified; Z79.84 Long term (current) use of oral hypoglycemic drugs; Z79.51 Long term (current) use of inhaled steroids; Z79.82 Long term (current) use of aspirin; Z79.899 Other long term (current) drug therapy
CPT/HCPCS: 36415; 93005; 80053; 82150; 83690; 84484; 85025; 81001; 71046; 76705; 74177; 99284; 96360; Q9967

== ENCOUNTER → 2021-12-02 | Outpatient (CLI) | payer MEDICARE ==
--- NOTE | 2021-12-02 16:47 | MR ---
EXAMINATION TYPE: MR liver wo/w con DATE OF EXAM: 12/02/2021 8:22 AM INDICATION: Patient age:Male; 71 years old; Reason for study: K76.9 Liver disease; PHH. COMPARISON: CT abdomen and pelvis 11/24/2021, 05/01/2021, 02/09/2015. TECHNIQUE: Multiplanar multi-sequence imaging was performed without and with IV contrast/Gadavist . The patient was given 10 ccs of Gadavist intravenously and postcontrast imaging was performed. FINDINGS: LOWER CHEST: Eventrated anterior right hemidiaphragm containing liver redemonstrated. ABDOMEN Liver: Multiple bilobar T2 hyperintense (coulter)/T1 hypointense lesions demonstrated throughout the morris er. These are new when compared to prior CT abdomen and pelvis with contrast in 2015. The largest les ion within the left hepatic lobe demonstrated within segment IVb abutting the capsule measures up to 4.0 cm (series 701, image 41). The largest lesion within the right hepatic lobe in segment 6/7 measur es up to 4.4 cm (series 1001, image 451). These lesions demonstrate heterogenous enhancement with per ipheral rim during the arterial phase. There is some washout of contrast on the delayed imaging. Thes e demonstrate restricted diffusion. Loss of signal on out of phase imaging consistent with steatosis. Gallbladder and Bile ducts: Moderately distended without filling defects to demonstrate cholelithiasi s. No biliary ductal dilatation. Pancreas: Unremarkable. Spleen: Top normal for size measuring up to 13 cm. Adrenal glands: Unremarkable. Kidneys: Right kidney is unremarkable except for a cortical cyst. The left kidney is surgically absen t. No soft tissue within the left nephrectomy bed to suggest local recurrence.. Stomach and Bowel: Unremarkable as visualized. Peritoneum: No evidence of pneumoperitoneum, free fluid, or adenopathy. Vasculature: Unremarkable. No aortic aneurysm. Abdominal wall: Unremarkable. Musculoskeletal: Bone marrow signal is within normal limits. IMPRESSION: * Multiple bilobar enhancing lesions demonstrated to the liver most consistent with intrahepatic met astasis. * Hepatic steatosis.
== END | disposition home or self-care (01) ==
LOC: RADMRIMAIN 06:57
PROVIDERS: ATTEND Family Medicine
DX: K76.0 Fatty (change of) liver, not elsewhere classified (principal)
CPT/HCPCS: 74183; A9585

== ENCOUNTER 2022-01-09 08:39 | Day surgery (SDC) | payer MEDICARE ==
[2022-01-09 09:32] LABS: Mean Platelet Volume 8.1; Platelet Count 148 k/uL (150-450)
[2022-01-09 09:34] VITALS: TEMP 98.1
[2022-01-09] MEDS ORDERED: ALPRAZolam 0.25 MG TAB PO STA (09:45)
[2022-01-09 09:47] LABS: Prothrombin Time 10.9 sec (9.0-12.0)
[2022-01-09] MEDS ORDERED: HYDROmorphone 0.5 MG/0.5 ML SYRINGE IVP STA (10:20)
--- NOTE | 2022-01-09 10:42 | P.PCN ---
Date of Procedure: 01/09/22 Preoperative Diagnosis: liver masses Postoperative Diagnosis: same Procedure(s) Performed: u/s guide liver biopsy Anesthesia: local Estimated Blood Loss (ml): 4 Pathology: other (core biopsy in formalin to path) Condition: stable Disposition: same day Operative Findings: single pass left lobe mass, 18 ga core
--- NOTE | 2022-01-09 11:05 | US ---
EXAMINATION TYPE: US biopsy liver DATE OF EXAM: 01/09/2022 HISTORY: Liver masses. FINDINGS: Maximal barrier technique was utilized. Hand hygiene achieved with soap and water and alco hol-based hand rub. The skin overlying a suitable path to the patient's mass in the left lobe of live r was localized with ultrasound and the overlying skin prepped and draped. Ultrasound was utilized w ith sterile technique. Lidocaine was used for local anesthesia. A skin jenna was made with a scalpel . An 18-gauge needle was advanced under direct ultrasound guidance and core specimen obtained of the mass. Single pass was made. Specimen submitted in formalin to Pathology. Following the procedure, hemostasis achieved and the patient is discharged in stable condition without [facility]. IMPRESSION:STATUS POST ULTRASOUND GUIDED CORE BIOPSY OF left lobe liver MASS, PATHOLOGY IS PENDING. THIS PROCEDURE IS PERFORMED BY THE UNDERSIGNED.
[2022-01-09 11:06] VITALS: RESP 16
[2022-01-09 14:47] VITALS: BP 128/72; PULSE 79
== END 2022-01-09 14:20 | disposition home or self-care (01) ==
LOC: RADPROMAIN 08:39
PROVIDERS: ATTEND Internal Medicine Gastroenterology
DX: C7B.02 Secondary carcinoid tumors of liver (principal); Z85.528 Personal history of other malignant neoplasm of kidney
CPT/HCPCS: 82947; 85049; 85610; 88342; 88307; 88341; 36415; 47000; 76942; J1170

== ENCOUNTER 2022-02-19 07:01 | Day surgery (SDC) | payer MEDICARE ==
[2022-02-18 09:53] VITALS: BMI 33.8
[~2022-02-19 07:01] MED LIST changes: -AMPICILLIN 1,000 MG in SODIUM CHLORIDE 0.9% 50 ML IVPB PRN; -DEXAMETHASONE SOD PHOSPHATE 4 MG/ML 1 ML VIAL IV ONE; -GENTAMICIN 120 MG in SODIUM CHLORIDE 0.9% 100 ML IVPB PRN; -HYDROmorphone 0.5 MG/0.5 ML SYRINGE IVP PRN; -ONDANSETRON 4 MG/2 ML VIAL IVP ONE
[2022-02-19 07:53] VITALS: TEMP 96.7
[2022-02-19 07:57] LABS: Glucose,Whole Blood 153 mg/dL (70-110)
[2022-02-19] MEDS ORDERED: PROPOFOL 10 MG/ML 20 ML VIAL IV ONE (08:20)
[2022-02-19] MEDS ORDERED: fentaNYL (PF) 50 MCG/ML 2 ML AMP ONE (08:20)
[2022-02-19] MEDS ORDERED: MIDAZOLAM 2 MG/2 ML VIAL ONE (08:20)
[2022-02-19] MEDS ORDERED: LIDOCAINE 2% INJ 20 MG/ML (2 ML VIAL) ONE (08:20)
--- NOTE | 2022-02-19 08:55 | P.PCN ---
Date of Procedure: 02/19/22 Implants: Brief history: Patient is a pleasant 71-year-old white male scheduled for an elective upper endoscopy as well as colonoscopy as a part of evaluation of abdominal pain and screening for colon cancer. 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 Anesthesia: MAC Procedure: After informed consent was obtained from the patient was brought into the endoscopy unit and IV sedation was administered by anesthesia under continuous monitoring. Initially upper endoscopy was done. The Olympus GF 160 video endoscope was inserted inserted into the mouth and esophagus intubated without any difficulty and was gradually advanced into the stomach and duodenum and car efully examined. The bulb and second part of the duodenum appeared normal. The scope was then withdrawn into the stomach adequately insufflated with air and upon careful examination the antrum and body, cardia and fundus appeared normal. The scope was then withdrawn into the esophagus. The GE junction was located at 40 cm to the incisors. It appeared regular with no erythema erosions or ulcerations. Rest of the esophagus appeared normal. Patient tolerated the procedure well. At this time the patient continued to remain sedation. Initial digital rectal examination was normal. Olympus CF 160 video colonoscope was then inserted into the rectum and gradually advanced to the cecum without any difficulty. Careful examination was performed as the scope was gradually being withdrawn. The prep was excellent. The cecum, appeared normal. In the ascending colon there was a 5 mm and 1 m polyp removed by snare polypectomy. In the hepatic flexure there was a 6 mm polyp removed by snare polypectomy. In the transverse colon there was a 5 mm and 7 mm polyp removed by snare polypectomy. In the descending colon there was 5 mm 2 polyps removed by snare technique. In the sigmoid colon there was a 5 mm and 6 mm polyp removed by snare polypectomy. The rectum appeared normal. Retroflexion was performed in the rectum and no lesions were noted. Patient tolerated the procedure well. Impression: 1. Upper endoscopy revealed 1 cm GE junction polyp status post biopsy 2. Colonoscopy revealed a) 5 mm and 1 cm ascending colon polyp status post polypectomy b) 6 mm hepatic flexure polyp status post polypectomy c) 5 mm and 7 mm transverse colon polyp status post polypectomy d) 2 mm 2; sigmoid polyp status post polypectomy e) 5 mm and 6 mm; descending colon polyp status post Recommendations: Findings of this examination were discussed with the patient as well as his family. He was advised to follow with the biopsy results.If the biopsy results adenoma he can have a repeat colonoscopy in 3 years.
[2022-02-19 09:06] VITALS: RESP 16
[2022-02-19 09:30] VITALS: BP 144/85; PULSE 68
== END 2022-02-19 09:50 | disposition home or self-care (01) ==
LOC: ORWHC2ENDO 07:01
PROVIDERS: ATTEND Internal Medicine Gastroenterology
DX: Z12.11 Encounter for screening for malignant neoplasm of colon (principal); D12.2 Benign neoplasm of ascending colon; D12.4 Benign neoplasm of descending colon; D12.3 Benign neoplasm of transverse colon; D12.5 Benign neoplasm of sigmoid colon; D3A.8 Other benign neuroendocrine tumors
CPT/HCPCS: 88305; 45385; 43239; J2250; J3010; J2704; J2001

== ENCOUNTER 2022-12-16 18:02 | Emergency (ER) | payer MEDICARE ==
[2022-12-16 18:13] VITALS: PULSE 78
--- NOTE | 2022-12-16 19:34 | ED ---
General Adult HPI - General Chief complaint: Recheck/Abnormal Lab/Rx Stated complaint: sent by Dr venegas labs Time Seen by Provider: 12/16/22 18:15 Source: patient, RN notes reviewed, old records reviewed Mode of arrival: wheelchair Limitations: no limitations - History of Present Illness Initial comments: This is a 72-year-old male who presents emergency Department stating that he had a test done at [facility] and he questioned whether or not he may have had a clot in his right iliac and right femoral vein so patient was sent to the emergency department. Patient denies any symptoms patient denies any swelling patient denies any pain leg patient denies any difficulty breathing chest pain or palpitations. - Related Data Home Medications Medication Instructions Recorded Confirmed Acetaminophen [Tylenol Arthritis] 1,300 mg PO BID PRN 11/30/17 02/18/22 Cholecalciferol [Vitamin D3 (25 125 mcg PO DAILY 11/30/17 02/18/22 Mcg = 1000 Iu)] Dicyclomine [Bentyl] 20 mg PO BID PRN 11/30/17 02/18/22 Gabapentin [Neurontin] 100 mg PO BID 11/30/17 02/18/22 atenoloL [Tenormin] 50 mg PO QAM 11/30/17 02/18/22 Nitroglycerin Sl Tabs [Nitrostat] 0.4 mg SUBLINGUAL Q5M PRN 11/24/18 02/18/22 metFORMIN HCL [metFORMIN HCL ER] 1,000 mg PO BID 04/18/19 02/18/22 traMADol HCL [Ultram] 50 mg PO BID PRN 04/18/19 02/18/22 Albuterol Inhaler [Ventolin Hfa 1 - 2 puff INHALATION RT-Q6H PRN 07/09/20 02/18/22 Inhaler] Aspirin EC [Ecotrin Low Dose] 81 mg PO DAILY 07/09/20 02/18/22 Cyanocobalamin (Vitamin B-12) 2,500 mcg PO DAILY 07/09/20 02/18/22 [Vitamin B-12] Famotidine [Pepcid] 40 mg PO DAILY 07/09/20 02/18/22 Empagliflozin [Jardiance] 20 mg PO DAILY 12/30/21 02/18/22 Ascorbic Acid [Vitamin C] 500 mg PO DAILY 02/18/22 02/18/22 Diphenox-Atrop 2.5-0.025 mg 1 - 2 tab PO QID PRN 02/18/22 02/18/22 [Lomotil] Sodium Bicarbonate Tab 1,950 mg PO TID 02/18/22 02/18/22 sitaGLIPtin [Januvia] 100 mg PO DAILY PRN 02/18/22 02/18/22 Previous Rx's Medication Instructions Recorded Pravastatin Sodium [Pravachol] 80 mg PO HS #90 tab 11/27/18 Apixaban [Eliquis Starter Pack 5 - 10 mg PO DIRECTED 30 Days 12/16/22 (for VTE)] #1 each Allergies Allergy/AdvReac Type Severity Reaction Status Date / Time cephalexin [From Keflex] Allergy Rash/Hives Verified 12/16/22 18:13 Review of Systems ROS Statement: Those systems with pertinent positive or pertinent negative responses have been documented in the HPI. ROS Other: All systems not noted in ROS Statement are negative. 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 kidney cancer 2014, hx. colon polyps, lipodystrophy,roscea, KIDNEY STONES, abdominal pain History of Any Multi-Drug Resistant Organisms: None Reported Past Surgical History: Heart Catheterization With Stent, Joint Replacement Additional Past Surgical History / Comment(s): left nephrectomy, colonoscopy, RIGHT SHOULDER replacement 06/05/20 Past Anesthesia/Blood Transfusion Reactions: No Reported Reaction Additional Past Anesthesia/Blood Transfusion Reaction / Comment(s): no hx blood transfusion Date of Last Stent Placement:: 11/26/18 Past Psychological History: No Psychological Hx Reported Smoking Status: Never smoker Past Alcohol Use History: None Reported Past Drug Use History: None Reported - Past Family History Father Family Medical History: Cancer Additional Family Medical History / Comment(s): Colon cancer. Mother Family Medical History: Cancer Additional Family Medical History / Comment(s): Cervical cancer. General Exam - General Exam Comments Initial Comments: GENERAL: Patient is well-developed and well-nourished. Patient is nontoxic and well- hydrated and is in no acute distress. ENT: Neck is soft and supple. No significant lymphadenopathy is noted. Oropharynx is clear. Moist mucous membranes. Neck has full range of motion without eliciting any pain. EYES: The sclera were anicteric and conjunctiva were pink and moist. Extraocular movements were intact and pupils were equal round and reactive to light. Eyelids were unremarkable. PULMONARY: Unlabored respirations. Good breath sounds bilaterally. No audible rales rhonchi or wheezing was noted. CARDIOVASCULAR: There is a regular rate and rhythm without any murmurs gallops or rubs. ABDOMEN: Soft and nontender with normal bowel sounds. No palpable organomegaly was noted. There is no palpable pulsatile mass. SKIN: Skin is clear with no lesions or rashes and otherwise unremarkable. NEUROLOGIC: Patient is alert and oriented x3. Cranial nerves II through XII are grossly intact. Motor and sensory are also intact. Normal speech, volume and content. Symmetrical smile. MUSCULOSKELETAL: Normal extremities with adequate strength and full range of motion. No lower extremity swelling or edema. No calf tenderness. LYMPHATICS: No significant lymphadenopathy is noted PSYCHIATRIC: Normal psychiatric evaluation. Limitations: no limitations Course Vital Signs 12/16/22 18:09 Temperature 98.2 F Pulse Rate 78 Respiratory 20 Rate Blood Pressure 173/88 O2 Sat by Pulse 93 L Oximetry Medical Decision Making - Medical Decision Making Was pt. sent in by a medical professional or institution (, PA, BROACHING MACHINE REPAIRER, urgent care, hospital, or group home...) When possible be specific @ -Patient was sent in by the oncologist Did you speak to anyone other than the patient for history (EMS, parent, family, police, friend...)? What history was obtained from this source @ -I spoke with the oncologist about the patient's current condition Did you review nursing and triage notes (agree or disagree)? Why? @ -I reviewed and agree with nursing and triage notes Were old charts reviewed (outside hosp., previous admission, EMS record, old EKG, old radiological studies, urgent care reports/EKG's, group home records)? Report findings @ -Her right radiological studies done prior to today's visit from another facility Differential Diagnosis (chest pain, altered mental status, abdominal pain women, abdominal pain men, vaginal bleeding, weakness, fever, dyspnea, syncope, headache, dizziness, GI bleed, back pain, seizure, CVA, palpatations, mental health, musculoskeletal)? @ -DVT, edema, inaccurate test results EKG interpreted by me (3pts min.). @ -As above X-rays interpreted by me (1pt min.). @ -None done CT interpreted by me (1pt min.). @ -None done U/S interpreted by me (1pt. min.). @ -Ultrasound showed a large DVT in the right iliac femoral artery What testing was considered but not performed or refused? (CT, X-rays, U/S, labs)? Why? @ -None What meds were considered but not given or refused? Why? @ -None Did you discuss the management of the patient with other professionals (professionals i.e. DrJoe, PA, BROACHING MACHINE REPAIRER, lab, RT, psych nurse, social media campaign manager, science editor, teacher, loan service officer, case resource manager)? Give summary @ -Discuss the management of this patient with Dr. Gardner and he was in agreement with giving the patient eliquis and a prescription for eliquis continuing eliquis tomorrow and patient has an appointment with Dr. Gardner tomorrow afternoon at 4:00. Was smoking cessation discussed for >3mins.? @ -No Was critical care preformed (if so, how long)? @ -No Were there social determinants of health that impacted care today? How? (Homelessness, low income, unemployed, alcoholism, drug addiction, transportation, low edu. Level, literacy, decrease access to med. care, [place] [facility], rehab)? @ -No Was there de-escalation of care discussed even if they declined (Discuss DNR or withdrawal of care, Hospice)? DNR status @ -No What co-morbidities impacted this encounter? (DM, HTN, Smoking, COPD, CAD, Cancer, CVA, ARF, Chemo, Hep., AIDS, mental health diagnosis, sleep apnea, morbid obesity)? @ -None Was patient admitted / discharged? Hospital course, mention meds given and route, prescriptions, significant lab abnormalities, going to OR and other pertinent info. @ -Patient remained asymptomatic however the ultrasound did show a DVT patient was started on eliquis in the ER and sent home with a prescription. Patient will follow-up with Dr. Gardner tomorrow for o'clock Undiagnosed new problem with uncertain prognosis? @ -No Drug Therapy requiring intensive monitoring for toxicity (Heparin, Nitro, Insulin, Cardizem)? @ -No Were any procedures done? @ -No Diagnosis/symptom? @ -Acute DVT Acute, or Chronic, or Acute on Chronic? @ -Acute Uncomplicated (without systemic symptoms) or Complicated (systemic symptoms)? @ -Complicated Side effects of treatment? @ -No Exacerbation, Progression, or Severe Exacerbation? @ -No Poses a threat to life or bodily function? How? (Chest pain, [place], [place], pneumonia, PE, COPD, DKA, ARF, appy, cholecystitis, CVA, Diverticulitis, Homicidal, Suicidal, threat to staff... and all critical care pts) @ -Yes this could lead to pulmonary embolism which could lead to end organ dysfunction Disposition Clinical Impression: Acute DVT (deep venous thrombosis) Disposition: HOME SELF-CARE Condition: Good Prescriptions: Apixaban [Eliquis Starter Pack (for VTE)] 5 - 10 mg PO DIRECTED 30 Days #1 each Is patient prescribed a controlled substance at d/c from ED?: No Referrals: Juanito Lu MD [Primary Care Provider] - 1-2 days Time of Disposition: 20:55
--- NOTE | 2022-12-16 20:30 | US ---
EXAMINATION TYPE: US venous doppler duplex LE RT DATE OF EXAM: 12/16/2022 7:56 PM COMPARISON: NONE CLINICAL INDICATION: Male, 72 years old with history of CT indicating clot; Pt states he had a Abd/pe lvic CT done at [facility], and it stated there could be a clot in the Right external iliac v and CFV /GSV junction. No hx of DVT. On baby aspirin daily. Pt states no SOB, no leg pain, and no discolorati on of leg SIDE PERFORMED: Right TECHNIQUE: The lower extremity deep venous system is examined utilizing real time linear array sonog jadyn with graded compression, doppler sonography and color-flow sonography. VESSELS IMAGED: Common Femoral Vein Deep Femoral Vein Greater Saphenous Vein * Femoral Vein Popliteal Vein Small Saphenous Vein * Proximal Calf Veins (* superficial vessels) Right Leg: Echoes compatible with thrombus in left EIV through popliteal veins. Some flow seen in ca lf veins. IMPRESSION: Deep vein thrombosis extending from the external iliac vein through the popliteal vein on the right. Findings communicated to Dr. Man Barker MD on 12/16/2022 8:[address] Julián Spear.
[2022-12-16] MEDS ORDERED: APIXABAN 5 MG TAB PO STA ×2 (20:44→20:55)
[2022-12-16] MEDS ORDERED: APIXABAN 5 MG TAB PO SCH (21:00)
[2022-12-16 21:02] VITALS: BP 152/85; RESP 16; TEMP 98.7
== END 2022-12-16 21:03 | disposition home or self-care (01) ==
LOC: EC 18:02
DX: I82.411 Acute embolism and thrombosis of right femoral vein (principal); J45.909 Unspecified asthma, uncomplicated; I25.10 Atherosclerotic heart disease of native coronary artery without angina pectoris; K21.9 Gastro-esophageal reflux disease without esophagitis; I10 Essential (primary) hypertension; E78.5 Hyperlipidemia, unspecified; E11.9 Type 2 diabetes mellitus without complications; Z88.1 Allergy status to other antibiotic agents; Z79.84 Long term (current) use of oral hypoglycemic drugs; Z79.899 Other long term (current) drug therapy; Z79.82 Long term (current) use of aspirin
CPT/HCPCS: 99284

== ENCOUNTER → 2023-05-21 | Outpatient (CLI) | payer MEDICARE ==
--- NOTE | 2023-05-21 14:25 | US ---
EXAMINATION TYPE: US abdomen complete DATE OF EXAM: 05/21/2023 COMPARISON: 12/16/2022 CLINICAL INDICATION: Male, 73 years old with history of R10.11 RT UPPER QUADRANT PAIN; Hx Contained l eft renal cancer, benign liver tumors, "Gravel" seen on PET CT per patient TECHNIQUE: Multiple sonographic images of the abdomen are obtained. FINDINGS: EXAM MEASUREMENTS: Liver Length: 16.4 cm Gallbladder Wall: 0.2 cm CBD: 0.4 cm Spleen: 11.8 cm Right Kidney: 12.5 x 6.7 x 7.0 cm Left Kidney: Surgically absent cm EPOXY SPECIALIST NOTES: Pancreas: Obscured by bowel gas Liver: Multiple lesions redemonstrated Gallbladder: ? Debris seen with change in patient position Evidence for sonographic Belcher's sign: No CBD: wnl Spleen: wnl Right Kidney: wnl Left Kidney: Surgically absent Upper IVC: wnl Abd Aorta: wnl IMPRESSION: 1. Multiple scattered hypodensities within the liver suspicious for metastatic disease. Follow-up CT with contrast is recommended for additional evaluation.
== END | disposition home or self-care (01) ==
LOC: RADUSWWP 13:49
PROVIDERS: ATTEND Family Medicine
DX: K76.89 Other specified diseases of liver (principal); R10.11 Right upper quadrant pain; Z85.528 Personal history of other malignant neoplasm of kidney; Z90.5 Acquired absence of kidney
CPT/HCPCS: 76700

== ENCOUNTER → 2023-05-27 | Outpatient (CLI) | payer MEDICARE ==
[2023-05-27 10:33] LABS: Basophils % (A) 1 %; Eosinophils # (A) 0.2 k/uL (0-0.7); Eosinophils % (A) 3 %; HCT 49.2 % (39.0-53.0); HGB 16.6 gm/dL (13.0-17.5); Lymphocytes # (A) 1.8 k/uL (1.0-4.8); Lymphocytes % (A) 27 %; MCH 32.1 pg (25.0-35.0); MCHC 33.6 g/dL (31.0-37.0); MCV 95.5 fL (80.0-100.0); Monocytes # (A) 0.4 k/uL (0-1.0); Monocytes % (A) 6 %; Neutrophils # (A) 4.1 k/uL (1.3-7.7); Neutrophils % (A) 62 %; Platelet Count 107 k/uL (150-450); RBC 5.15 m/uL (4.30-5.90); RDW 12.2 % (11.5-15.5); WBC 6.6 k/uL (3.8-10.6)
[2023-05-27 10:40] LABS: ALT 28 U/L (4-49); AST 27 U/L (17-59); African American GFR (CKD) 72 (>60 ml/min/1.73 sqM); Albumin 4.7 g/dL (3.5-5.0); Albumin/Globulin Ratio 1.7; Alkaline Phosphatase 70 U/L (38-126); Anion Gap 15 mmol/L; Blood Urea Nitrogen 20 mg/dL (9-20); Calcium 9.8 mg/dL (8.4-10.2); Carbon Dioxide 25 mmol/L (22-30); Chloride 105 mmol/L (98-107); Globulin 2.8 g/dL; Glucose 166 mg/dL (74-99); Non-African American GFR(CKD) 62 (>60 ml/min/1.73 sqM); Potassium 4.1 mmol/L (3.5-5.1); Sodium 145 mmol/L (137-145); Total Bilirubin 0.9 mg/dL (0.2-1.3); Total Protein 7.5 g/dL (6.3-8.2)
== END | disposition home or self-care (01) ==
LOC: LABWHC1 09:37
DX: Z01.812 Encounter for preprocedural laboratory examination (principal)
CPT/HCPCS: 36415; 80053; 85025